=== PATIENT | female | born 1940 | race Caucasian/White ===

== ENCOUNTER 2019-03-11 21:45 | Inpatient (IN) | payer MEDICARE, OTHER ==
[~2019-03-11] VITALS: Ht 167.6 cm; Wt 50.8 kg
--- NOTE | 2019-03-11 21:58 | ED.ADGEN ---
Past History Past Medical History: Arthritis, Dementia, Depression, Hypertension Adult General Chief Complaint Chief Complaint ".. Oh.. I don't know.... I so sleepy..." HPI HPI Patient is a 78 year old female who presents with above hx and complaints of confusion. Pt. resident of [place]- with mental status change. Pt. reportedly had a double dose of Cymbalta 30, trazodone 50, Ativan 0.5, Me lantonin 3, and 100 mg Benadryl. After these dosages pt more sedate and confused. Pt. follows with Dr. Jeong. Pt. has medical history of osteoporosis, gait disorder, fibromyalgia, gastroesophageal reflux, major depression, deconditioning, hypothyroidism, dementia, scoliosis, A. fib, hemorrhoids, osteoarthritis, hypertension, and dementia. Review of Systems Review of Systems Patient is a poor historian- no specific complaints other than that she's very sleepy Constitutional: Denies fever or chills [] Eyes: Denies change in visual acuity, redness, or eye pain [] HENT: Denies nasal congestion or sore throat [] Respiratory: Denies cough or shortness of breath [] Cardiovascular: No additional information not addressed in HPI [] GI: Denies abdominal pain, nausea, vomiting, bloody stools or diarrhea [] : Denies dysuria or hematuria [] Musculoskeletal: Denies back pain or joint pain [] Integument: Denies rash or skin lesions [] Neurologic: Denies headache, focal weakness or sensory changes [] Endocrine: Denies polyuria or polydipsia [] All other systems were reviewed and found to be within normal limits, except as documented in this note. Family History Family History Not currently available Current Medications Current Medications See nursing for half-way meds Allergies Allergies See nursing Physical Exam Physical Exam Constitutional:, no acute distress, extremely sedated in appearance. [] HENT: Normocephalic, atraumatic, bilateral external ears normal, oropharynx moist, no oral exudates, nose normal. []Shunt on right Eyes: PERRLA, EOMI, conjunctiva normal, no discharge. [] Neck: Normal range of motion, no tenderness, supple, no stridor. [] Cardiovascular:Heart rate regular rhythm, no murmur []PMI to the left Lungs & Thorax: Bilateral breath sounds equal at apex with scattered wheezes on Auscultation [] Abdomen: Bowel sounds normal, soft, no tenderness, no masses, no pulsatile masses. [] Old surgical scars. Skin: Warm, dry, no erythema, no rash. [] Back: No tenderness, no CVA tenderness. [] Kyphosis and scoliosis Extremities: No tenderness, no cyanosis, no clubbing, ROM intact, no edema. [] Arthritic changes. Left hip scar. Neurologic: Alert and oriented X 3, but very sleepy and slow to respond , patient moves all extremities on request, has distal sensory function, no focal deficits noted. [] Psychologic: Affect sleepy, judgement impaired, mood normal. [] Current Patient Data Vital Signs Vital Signs Date Time Temp Pulse Resp B/P (MAP) Pulse Ox O2 Delivery O2 Flow Rate FiO2 03/11/19 21:58 99.1 78 20 98 Room Air EKG EKG My interpretation EKG shows sinus rhythm at 79 bpm. No acute findings of STEMI with contralateral changes.[] Radiology/Procedures Radiology/Procedures I interpretation of chest x-ray shows kyphosis and scoliosis. Does have findings of a shunt. Does have findings of left hip replacement. Does have findings of cardiomegaly. []Does have a metal [place] [address] IMAGING REPORT Signed PATIENT: TE DREW ACCOUNT: [id number] : 1940 LOCATION: ER AGE: 78 SEX: F EXAM STATUS: REG ER ORD. PHYSICIAN: SEGUN ROMO MD REASON: MENTAL STATUS CHANGE, FALLS PROCEDURE: CT HEAD AND CERVICAL SPINE WO PQRS Compliance statement: One or more of the following individualized dose reduction techniques were utilized for this examination: 1. Automated exposure control. 2. Adjustment of the mA and/or kV according to patient size. 3. Use of iterative reconstruction technique. Indication:Mental status change, falls. TECHNIQUE: CT head without IV contrast COMPARISON:None FINDINGS: Right parietal approach interventricular catheter is seen with its tip in the frontal horn of the left lateral ventricle. No pathologic extra-axial or intra-axial fluid collection. The ventricles are slightly prominent. The basal cisterns are within normal limits. 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 No acute intracranial bleed. No focal loss of meraz-white differentiation. Orbits are within normal limits. No acute calvarial fracture. Utilized paranasal sinuses and mastoid air cells are clear. IMPRESSION: 1. No acute intracranial processes noncontrast CT. 2. Mildly prominent ventricles. Indication:Falls TECHNIQUE: CT of the cervical spine without IV contrast with multiplanar reformats. COMPARISON:None FINDINGS: Cervical spine is in normal anatomic alignment. Atlantoaxial joint interval is preserved. No compression deformity. Facet joints are in normal anatomic alignment. Mild to moderate degenerative disc disease at C5-C6. Moderate facet arthropathy at C6-C7. No acute fractures. Noncontrast appearance of the neck soft tissue is within normal limits. Biapical pleural scarring. IMPRESSION: 1. No acute fractures. Electronically signed by: Adriano Martinez DO (03/12/2019 1:35 AM) [facility] Course & Med Decision Making Course & Med Decision Making Pertinent Labs and Imaging studies reviewed. (See chart for details) Discussed presentation testing and treatment plan with Dr. Benson. Patient admitted to Dr. Jeong. Suspect patient's presentation is primarily due to accidental drug overdose. Patient does have elevated d-dimer. Will obtain ultrasound and CT. [] Final Impression Final Impression 1. Confusion 2. Medicine Overdosage 3. Hx. Dementia[] 4. Diabetes glucose 110 5. Elevated d-dimer 1.10 6. Hydrocephalus Dragon Disclaimer Dragon Disclaimer This electronic medical record was generated, in whole or in part, using a voice recognition dictation system. Discharge Summary Visit Information Final Diagnosis Problems Medical Problems: (1) Mental status alteration Status: Acute Brief Hospital Course Vital Signs Vital Signs Date Time Temp Pulse Resp B/P (MAP) Pulse Ox O2 Delivery O2 Flow Rate FiO2 03/11/19 21:58 99.1 78 20 98 Room Air Brief Hospital Course Ms. Derw is a 78 old female who presented with accident OD of meds , mental status change. Admitted Dr. JEONG. Discharge Information Condition at Discharge: Improved Dragon Disclaimer This chart was dictated in whole or in part using Voice Recognition software in a busy, high-work load, and often noisy Emergency Department environment. It may contain unintended and wholly unrecognized errors or omissions. SEGUN ROMO MD March 11, 2019 21:58
[2019-03-11] MEDS ORDERED: IV RINGERS SOLUTION,LACTATED 1,000 ML IV SCH (23:00)
[2019-03-11 23:19] LABS: BASO % 0 % (0-3); EOS # 0.1 x10^3/uL (0.0-0.7); EOS % 1 % (0-3); HEMATOCRIT 38.1 % (36.0-47.0); LYMPH # 2.6 x10^3/uL (1.0-4.8); LYMPH % 24 % (24-48); MEAN CORPUSCULAR HEMOGLOBIN 27 pg (25-35); MEAN CORPUSCULAR HGB CONC 31 g/dL (31-37); MEAN CORPUSCULAR VOLUME 86 fL (79-100); MONO # 0.9 x10^3/uL (0.0-1.1); MONO % 9 % (0-9); NEUT # 7.1 x10^3uL (1.8-7.7); NEUT % 66 % (31-73); PLATELET COUNT 304 x10^3/uL (140-400); RED BLOOD COUNT 4.46 x10^6/uL (3.50-5.40); RED CELL DISTRIBUTION WIDTH 26.5 % (11.5-14.5); WHITE BLOOD COUNT 10.8 x10^3/uL (4.0-11.0)
[2019-03-12 00:40] LABS: ANISOCYTOSIS MOD; PLT ESTIMATE INCREASED (ADEQUATE)
[2019-03-12 00:41] LABS: OVALOCYTES OCC; SCHISTOCYTES OCC
[2019-03-12] MEDS ORDERED: ONDANSETRON PF 4 MG/2 ML VIAL. IV PRN (00:45)
[2019-03-12 01:11] LABS: BLOOD UREA NITROGEN 18 mg/dL (7-20); CALCIUM 10.6 mg/dL (8.5-10.1); CREATININE 0.7 mg/dL (0.6-1.0); GFR 80.9; GLUCOSE 110 mg/dL (70-99); TOTAL BILIRUBIN 0.2 mg/dL (0.2-1.0); TOTAL PROTEIN 7.4 g/dL (6.4-8.2)
[2019-03-12 01:12] LABS: ALK PHOS 100 U/L (46-116); ALT (SGPT) 14 U/L (14-59); ANION GAP 12 (6-14); AST (SGOT) 20 U/L (15-37); CARBON DIOXIDE 25 mmol/L (21-32); CHLORIDE 101 mmol/L (98-107); POTASSIUM 4.4 mmol/L (3.5-5.1); SODIUM 138 mmol/L (136-145)
[2019-03-12 01:13] LABS: LIPASE 111 U/L (73-393); MAGNESIUM 2.3 mg/dL (1.8-2.4)
--- NOTE | 2019-03-12 01:38 | RAD ---
PQRS Compliance statement: One or more of the following individualized dose reduction techniques were utilized for this examination: 1. Automated exposure control. 2. Adjustment of the mA and/or kV according to patient size. 3. Use of iterative reconstruction technique. Indication:Mental status change, falls. TECHNIQUE: CT head without IV contrast COMPARISON:None FINDINGS: Right parietal approach interventricular catheter is seen with its tip in the frontal horn of the left lateral ventricle. No pathologic extra-axial or intra-axial fluid collection. The ventricles are slightly prominent. The basal cisterns are within normal limits. 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 No acute intracranial bleed. No focal loss of meraz-white differentiation. Orbits are within normal limits. No acute calvarial fracture. Utilized paranasal sinuses and mastoid air cells are clear. IMPRESSION: 1. No acute intracranial processes noncontrast CT. 2. Mildly prominent ventricles. Indication:Falls TECHNIQUE: CT of the cervical spine without IV contrast with multiplanar reformats. COMPARISON:None FINDINGS: Cervical spine is in normal anatomic alignment. Atlantoaxial joint interval is preserved. No compression deformity. Facet joints are in normal anatomic alignment. Mild to moderate degenerative disc disease at C5-C6. Moderate facet arthropathy at C6-C7. No acute fractures. Noncontrast appearance of the neck soft tissue is within normal limits. Biapical pleural scarring. IMPRESSION: 1. No acute fractures. Electronically signed by: Adriano Martinez DO (03/12/2019 1:35 AM) [facility]
[2019-03-12 03:00] VITALS: BP 112/54
--- NOTE | 2019-03-12 05:09 | RAD ---
Indication:Shortness of breath abdominal pain. TECHNIQUE: AP chest and 2 views of the abdomen and pelvis COMPARISON: None FINDINGS: Patient is rotated to the left side limiting optimal evaluation. Heart is normal in size. Prominent bronchial markings are seen with interstitial opacities. No focal consolidation. No pneumothorax or effusion. Visualized bony thorax within normal limits. No pneumoperitoneum. The peritoneal shunt terminates in the right hemipelvis. No abnormally dilated bowel loops or air-fluid levels. IMPRESSION: 1. Findings suggests mild bronchitis. 2. No imaging evidence of high-grade bowel obstruction. Electronically signed by: Adriano Martinez DO (03/12/2019 5:06 AM) [facility]
[2019-03-12] MEDS ORDERED: CONTRAST GIVEN MC PRN (07:00)
[2019-03-12] MEDS ORDERED: IOHEXOL 350 MG/ML 100 ML VIAL. IV ONE (07:15)
[2019-03-12] MEDS ORDERED: IPRATRPIUM/ALBUTEROL 0.5/2.5MG 3 ML NEBU. NEB SCH (08:00)
[2019-03-12] MEDS ORDERED: LEVO88TA2 PO (08:15)
[2019-03-12] MEDS ORDERED: ASCO500T PO (08:15)
[2019-03-12] MEDS ORDERED: ASPI-612 PO (08:15)
[2019-03-12] MEDS ORDERED: MELA3TAB2 PO (08:15)
[2019-03-12] MEDS ORDERED: ATEN100T PO (08:15)
[2019-03-12] MEDS ORDERED: CALC200T3 PO (08:15)
[2019-03-12] MEDS ORDERED: DULO30CA2 PO (08:15)
[2019-03-12] MEDS ORDERED: TRIA1CAP3 PO (08:15)
[2019-03-12] MEDS ORDERED: FERR325T14 PO (08:15)
[2019-03-12] MEDS ORDERED: TRAZ-120 PO (08:15)
[2019-03-12] MEDS ORDERED: LORA0.5T96 PO (08:15)
[2019-03-12] MEDS ORDERED: OXYC1TAB7 PO (08:15)
--- NOTE | 2019-03-12 08:16 | EKG ---
[address] [address] Test Date: 2019-03-11 Test Time: 22:07:26 Pat Name: TE GUTIERREZ Department: Room: Gender: F Administrative Technician: KINGSLEY : 1940 Requested By: SEGUN ROMO Order Number: [id number] Reading MD: Measurements Intervals [place] Rate: 79 P: 90 [place]: 166 QRS: 3 QRSD: 84 T: 53 QT: 384 QTc: 447 Interpretive Statements SINUS RHYTHM NO SPECIFIC ECG ABNORMALITIES RI6.01 No previous ECG available for comparison
--- NOTE | 2019-03-12 08:43 | RAD ---
LEFT LEG VENOUS DOPPLER STUDY: Clinical indications: Left leg swelling and elevated d-dimer. Findings: Duplex sonography (including meraz scale evaluation and color flow and waveform spectral analysis) of the proximal aspect of the greater saphenous vein and the proximal aspect of the profunda femoral vein and the entire length of the common femoral and superficial femoral and popliteal veins and the tibioperoneal trunk and the proximal aspect of the posterior tibial and peroneal veins of the left leg was performed. Normal compressibility, augmentation of color Doppler flow after calf compression, and respiratory variation of Doppler flow is seen. Thus, there are no sonographic findings of deep venous thrombosis within these veins. Impression: There are no sonographic findings of deep venous thrombosis within the veins discussed above of the left lower extremity. RIGHT LEG VENOUS DOPPLER STUDY: Clinical indications: Right leg swelling and elevated d-dimer. Findings: Duplex sonography (including meraz scale evaluation and color flow and waveform spectral analysis) of the proximal aspect of the greater saphenous vein and proximal aspect of the profunda femoral vein and the entire length of the common femoral and superficial femoral and popliteal veins and the tibioperoneal trunk and the proximal aspect of the posterior tibial and peroneal veins of the right leg was performed. Normal compressibility, augmentation of color Doppler flow after calf compression, and respiratory variation of Doppler flow is seen. Thus, there are no sonographic findings of deep venous thrombosis within these veins. Impression: There are no sonographic findings of deep venous thrombosis within the veins discussed above of the right lower extremity. Electronically signed by: Yariel Castillo MD (03/12/2019 8:40 AM) [id number]
--- NOTE | 2019-03-12 08:52 | RAD ---
CTA of the chest with contrast, 03/12/2019: HISTORY: Elevated d-dimer Multidetector CT imaging was performed following an IV bolus injection of iodinated contrast material. Multiplanar reconstructions were produced including coronal and sagittal MIP images images. No filling defects are seen in the central pulmonary arteries to suggest pulmonary emboli. There is moderate calcific plaquing of the thoracic aorta without evidence of aneurysm. A large hiatal hernia is present producing mild mass effect upon the posterior aspect of the heart. Bilateral apical pleural-parenchymal opacities are probably due to scarring. There are additional scattered linear opacities in both lungs compatible with scarring and/or atelectasis. No pulmonary mass or dense consolidation is evident. No pleural fluid is seen. There are moderate multilevel degenerative changes in the spine. There are lower thoracic and upper lumbar vertebral compression fractures. IMPRESSION: 1. No CT evidence of central pulmonary emboli. 2. Large hiatal hernia. 3. Bilateral pleural-parenchymal scarring. 4. Vertebral compression fractures of indeterminate ages. PQRS Compliance Statement: One or more of the following individualized dose reduction techniques were utilized for this examination: 1. Automated exposure control 2. Adjustment of the mA and/or kV according to patient size 3. Use of iterative reconstruction technique Electronically signed by: Wiley Flaherty MD (03/12/2019 8:49 AM) [facility]
[2019-03-12 08:55] VITALS: BP 135/97
[2019-03-12 11:30] VITALS: BP 149/77
--- NOTE | 2019-03-12 12:17 | HP ---
ADMIT DATE: 03/11/2019 HISTORY OF PRESENT ILLNESS: The patient is a 78-year-old female patient, a resident at [facility], who apparently was sent to the Emergency Room as she was very lethargic and more confused. The patient reportedly had a double dose of her Cymbalta, trazodone, Ativan, melatonin and Benadryl. After she took all these medications, she has been more sedated and confused and was evaluated in the Emergency Room where she was extensively investigated. She has had lab work and imaging studies and was admitted for further evaluation and treatment. The patient herself is very confused and does not give any useful information. PAST MEDICAL HISTORY: Significant for osteoporosis, fibromyalgia, gastroesophageal reflux disease. She is known to have hypothyroidism, scoliosis, atrial fibrillation, generalized osteoarthritis, and hemorrhoids. 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 ALLERGIES: She is allergic to CIPROFLOXACIN, FLAGYL, GABITRIL, NUBAIN, SULFA, and ZOFRAN. MEDICATIONS: She is currently on following medications: She is on Protonix 40 mg once a day, Cymbalta 30 mg once a day, Synthroid 88 mcg once a day. She is also on calcium carbonate with vitamin D that she takes 1 tablet once a day, Cymbalta 30 mg once a day, Tums 500 mg chewable tablet as needed every 4 hours. She is on Nystatin powder applied to affected areas as needed twice a day, aspirin 81 mg once a day, atenolol 25 mg once a day. She is on triamterene/hydrochlorothiazide 37.5/25 mg once a day, ketaconazole 2% topical cream as needed for itching or rash, MiraLax 17 grams daily, ferrous sulfate 325 mg twice a day with meals, vitamin C 500 mg twice a day, melatonin 3 mg once a day, Ativan 0.5 mg that she takes half a tablet every 2 hours as needed. She is also on trazodone 50 mg once a day. She is also on dextromethorphan/guaifenesin that she takes 10 mL every 4 hours as needed and oxycodone/acetaminophen 5/325 one tablet every 6 hours as needed. FAMILY HISTORY: Noncontributory. SOCIAL HISTORY: She is , currently residing at [facility] long-term care site. She does not smoke or drink alcohol or use recreational drugs. REVIEW OF SYSTEMS: Unobtainable. PHYSICAL EXAMINATION: GENERAL: When she arrived to the Emergency Room, she looked well and was clearly in no apparent respiratory distress, slightly pale, but no jaundiced or cyanosed. No lymphadenopathy, no thyromegaly. No jugular venous distention. No lower limb edema. VITAL SIGNS: Her heart rate was 78, blood pressure was 112/54, her temperature was 99.1, respiratory rate was 20, and oxygen saturation was 98%. HEAD, EYES, EARS, NOSE, AND THROAT: Showed normocephalic, atraumatic. NECK: Supple. HEART: Showed normal first and second heart sounds with no gallop, rub or murmur. CHEST: Clear to auscultation. No crepitation or rhonchi. ABDOMEN: Scaphoid, soft, nontender. No guarding or rigidity. No organomegaly. All hernial orifices intact. Bowel sounds normal. NEUROLOGIC: She was very sleepy and slow to respond. She moves, however, all extremities on request. No obvious lateralizing sign. She was extensively investigated in the Emergency Room. LABORATORY DATA: Her lab work showed a white cell count of 10,800, hemoglobin 12, hematocrit 38, MCV 86 and platelet count of 304,000 with normal manual differential. Her chemistry showed a serum sodium 138, potassium 4.4, chloride 101, bicarbonate 25, anion gap of 12, BUN 18, creatinine 0.7, estimated GFR was 80.9 mL per minute. Her glucose was 110, calcium was 10.6, magnesium was 2.3. Total bilirubin, AST, ALT, alkaline phosphatase were normal. Her beta natriuretic peptide was 183. Total protein was 7.4, albumin 4. Lipase was 111. Her prothrombin time was 10.4, INR of 1, aPTT was 25 and D-dimer was 1.1 mg/dL. Her acute abdomen series showed findings to suggest mild bronchitis. No imaging evidence of high-grade bowel obstruction. CT scan of the head and cervical spine showed that the patient has right parietal approach intraventricular catheter seen with its tip in the frontal horn of the left lateral ventricle. No pathologic extraaxial and intraaxial fluid collection. The ventricles are slightly prominent. Basal cisterns are within normal limits. 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 No acute intracranial bleed. No focal loss of meraz-white differentiation. Orbits are within normal limits. No acute calvarial fracture. Visualized paranasal sinuses and mastoid air cells are clear. Her cervical spine is in normal anatomic alignment. Atlantoaxial joint interval is preserved. No compression deformity. Facet joints are in normal anatomic alignment, mild to moderate degenerative disk disease at C5-C6, moderate facet arthropathy at C6-C7. No acute fracture. Noncontrast appearance of the neck soft tissue is within normal limits and she has bilateral pleural scarring. Given her elevated D-dimer, she underwent venous Doppler ultrasound of her lower extremities and basically there is no sonographic finding of deep vein thrombosis within the veins discussed including both left and right lower extremities. She had had a CT angio of the chest, which showed no CT evidence of central pulmonary emboli, large hiatal hernia, and bilateral pleural parenchymal scarring, vertebral compression fracture of indeterminate age. The patient was admitted to the ICU. We held all her medications. We will obviously repeat all her lab work and decide the further management accordingly. FINAL ADMISSION DIAGNOSES: Altered mental status due to medication overdose. She has a history of hypothyroidism, elevated D-dimer and hydrocephalus for which she underwent ventriculoperitoneal shunt placement. CONTRERAS BAZZI MD DR: SANDY/jey JOB#: [id number] / [id number]
[2019-03-12 12:38] LABS: BACTERIA,URINE MANY /HPF (0-FEW); BILIRUBIN,URINE NEG (NEG); CLARITY,URINE TURBID; COLOR,URINE YELLOW; GLUCOSE,URINE NEG (NEG); NITRITE,URINE POS (NEG); SQUAMOUS EPITHELIAL CELL,UR FEW /LPF; UROBILINOGEN,URINE 0.2 mg/dL (0.2 mg/dL)
[2019-03-12 12:39] LABS: WBC,URINE >40 /HPF (0-4)
[2019-03-12] MEDS: CALCIUM CARBONATE 500 MG TAB.CHEW PO PRN ×2 (14:20→20:54)
[2019-03-12 15:30] VITALS: BP 136/70
[2019-03-12] MEDS: PANTOPRAZOLE IV 40 MG VIAL. IVP SCH (17:30)
[2019-03-12 19:55] VITALS: BP 161/77
[2019-03-12 23:30] VITALS: BP 157/79
[2019-03-13] MEDS ORDERED: METOCLOPRAMIDE HCL 10 MG/2 ML VIAL. IV PRN (06:00)
[2019-03-13] MEDS ORDERED: ACETAMINOPHEN 325 MG TABLET PO PRN (06:00)
[2019-03-13] MEDS ORDERED: LEVOTHYROXINE 88 MCG TABLET PO SCH (06:00)
[2019-03-13] MEDS ORDERED: PROMETHAZINE 12.5 MG SUPP.RECT. PR PRN (06:00)
[2019-03-13] MEDS ORDERED: LORazepam 0.5 MG TABLET PO PRN (06:15)
[2019-03-13] MEDS ORDERED: IV DEXTROSE 5 %-0.45 % NACL 1,000 ML IV SCH (06:30)
[2019-03-13 06:40] VITALS: BP 143/82
[2019-03-13 07:00] LABS: BASO # 0.1 x10^3/uL (0.0-0.2); BASO % 1 % (0-3); EOS % 0 % (0-3); HEMATOCRIT 35.7 % (36.0-47.0); HEMOGLOBIN 11.5 g/dL (12.0-15.5); LYMPH # 2.5 x10^3/uL (1.0-4.8); LYMPH % 20 % (24-48); MEAN CORPUSCULAR HEMOGLOBIN 27 pg (25-35); MEAN CORPUSCULAR HGB CONC 32 g/dL (31-37); MEAN CORPUSCULAR VOLUME 85 fL (79-100); MONO # 0.7 x10^3/uL (0.0-1.1); MONO % 5 % (0-9); NEUT # 9.5 x10^3uL (1.8-7.7); NEUT % 74 % (31-73); PLATELET COUNT 331 x10^3/uL (140-400); RED BLOOD COUNT 4.22 x10^6/uL (3.50-5.40); RED CELL DISTRIBUTION WIDTH 26.5 % (11.5-14.5); WHITE BLOOD COUNT 12.8 x10^3/uL (4.0-11.0)
[2019-03-13] MEDS ORDERED: ASCORBIC ACID 500 MG TABLET PO SCH (07:00)
[2019-03-13 07:10] LABS: GASTRIC OB PAT POSITIVE (NEG)
[2019-03-13 07:15] LABS: ALBUMIN 3.4 g/dL (3.4-5.0); ALBUMIN/GLOBULIN RATIO 0.8 (1.0-1.7); CALCIUM 9.8 mg/dL (8.5-10.1); CREATININE 0.8 mg/dL (0.6-1.0); GFR 69.4; POTASSIUM 3.3 mmol/L (3.5-5.1); TOTAL BILIRUBIN 0.5 mg/dL (0.2-1.0); TOTAL PROTEIN 7.6 g/dL (6.4-8.2)
[2019-03-13] MEDS ORDERED: ATENOLOL 25 MG TABLET PO SCH (08:00)
[2019-03-13] MEDS ORDERED: DULoxetine HCL 30 MG CAPSULE.DR PO SCH (08:00)
[2019-03-13] MEDS: PANTOPRAZOLE IV 40 MG VIAL. IVP SCH (08:04)
[2019-03-13] MEDS ORDERED: LACTOBACILLUS RHAMNOSUS GG 1 CAPSULE. PO SCH (09:00)
[2019-03-13 11:23] VITALS: BP 154/78
[2019-03-13 15:06] VITALS: BP 131/65
[2019-03-13] MEDS ORDERED: MELATONIN 3 MG TABLET PO SCH (21:00)
[2019-03-13] MEDS ORDERED: traZODone 50 MG TABLET. PO SCH (21:00)
--- NOTE | 2019-03-13 23:15 | DS ---
DATE OF DISCHARGE: 03/13/2019 HOSPITAL COURSE: The patient is a 78-year-old female patient, resident at [facility], who was admitted with altered mental status. She was very lethargic and more confused. The patient reportedly had a double dose of her Cymbalta, trazodone, Ativan, melatonin and Benadryl. After she took all these medications, she has been more sedated and confused and was evaluated in the Emergency Room where she was extensively investigated. She has had lab work and imaging studies and was admitted for further evaluation and treatment. Since admission, she has been complaining of headache and also intractable nausea and vomiting. Her vomitus was positive for blood and the patient has not eaten anything. She has not been tolerating even a clear liquid and complaining of headache. Apparently, the patient has obstructive hydrocephalus and she has had ventriculoperitoneal shunt and her CT scan of the head showed that the patient has right parietal approach, intraventricular catheter is seen with its tip in the frontal horn of the left lateral ventricle. No pathologic extraaxial or intraaxial fluid collection. 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 No acute intracranial bleed. No focal loss of meraz-white differentiation. The orbits are within normal limits. No acute calvarial fracture, visualized paranasal sinuses and mastoid air cells are clear. Given that there is some prominence of the ventricles and is wondering whether the shunt is obstructed and causing the headache and recurrent bouts of nausea and vomiting, and therefore, a decision was made to transfer her to [facility] to consult the neurosurgeon as well as the building carpenter helper. She did have blood in her vomitus, although it was not like fresh blood. PHYSICAL EXAMINATION: GENERAL: When I saw her this afternoon, she was resting slightly propped up in bed, in no apparent respiratory distress, pale, cachectic, but no jaundice, cyanosis, or thyromegaly. No jugular venous distension. No lower limb edema. VITAL SIGNS: Her heart rate was 100, blood pressure was 131/65, temperature was 99.7, respiratory rate was 20 and oxygen saturation was 97% on room air. HEAD, EYES, EARS, NOSE AND THROAT: Showed normocephalic, atraumatic. NECK: Supple. HEART: Showed normal first and second heart sounds. No gallop, rub or murmur. CHEST: Clear to auscultation. No crepitation or rhonchi. ABDOMEN: Distended, soft, nontender. NEUROLOGIC: She is very confused, but otherwise, all her cranial nerves are intact. She moves extremities without difficulty. She is mostly bedbound, chair bound; however, she does walk with a walker with assistance. LABORATORY DATA: Her lab work this morning showed her white cell count slightly up to 12,800, hemoglobin 11.5, hematocrit 35.7, MCV 85 and platelet count of 331,000. Her chemistry showed a serum sodium 141, potassium 3.3, chloride 104, bicarbonate 22, anion gap of 15, BUN 19, creatinine 0.8. Estimated GFR was 69 mL per minute. Her glucose 135, calcium was 9.8. Total bilirubin, AST, ALT, alkaline phosphatase were normal. Total protein was 7.6, albumin was 3.4. Her serum lipase was 92 and TSH was high at 10.897. Her prothrombin time was 10.4, INR of 1, aPTT was 25. D-dimer was 1.1. Urinalysis essentially showed that she was positive for nitrite and leukocyte esterase. There was more than 40 wbc's and too many bacteria. Her nasal screen for MRSA by PCR was positive. Gastric occult blood was positive. PLAN: She will be transferred to [facility]. Continue with IV fluid in the form of D5 half normal saline with probably 20 mEq of potassium chloride IV at 75 mg, continue with IV Protonix and I would consult the neurosurgeon as well as the building carpenter helper and decide the further management. We will keep her n.p.o. and repeat all her lab work tomorrow. I will continue also with IV ceftriaxone for urinary tract infection. CNOTRERAS BAZZI MD DR: SANDY/jey JOB#: [id number] / [id number]
== END 2019-03-13 19:07 | disposition short-term general hospital (02) | DRG 917 ==
LOC: ER 21:45 → ICU 22:20
PROVIDERS: ADMIT Internal Medicine; ATTEND Internal Medicine
DX: T42.4X1A Poisoning by benzodiazepines, accidental (unintentional), initial encounter (principal); G92 Toxic encephalopathy; N39.0 Urinary tract infection, site not specified; T45.0X1A Poisoning by antiallergic and antiemetic drugs, accidental (unintentional), initial encounter; F03.90 Unspecified dementia, unspecified severity, without behavioral disturbance, psychotic disturbance, mood disturbance, and anxiety; E03.9 Hypothyroidism, unspecified; I10 Essential (primary) hypertension; I48.91 Unspecified atrial fibrillation; K21.9 Gastro-esophageal reflux disease without esophagitis; F32.9 Major depressive disorder, single episode, unspecified; M15.9 Polyosteoarthritis, unspecified; M41.9 Scoliosis, unspecified; M79.7 Fibromyalgia; M81.0 Age-related osteoporosis without current pathological fracture; Z86.73 Personal history of transient ischemic attack (TIA), and cerebral infarction without residual deficits; Z79.899 Other long term (current) drug therapy; Z88.1 Allergy status to other antibiotic agents; Z88.2 Allergy status to sulfonamides; Z88.8 Allergy status to other drugs, medicaments and biological substances; Z98.2 Presence of cerebrospinal fluid drainage device; Y92.89 Other specified places as the place of occurrence of the external cause
CPT/HCPCS: 36415; 70450; 71275; 72125; 74022; 80048; 80053; 80076; 81001; 82271; 82553; 83690; 83735; 83880; 84443; 84484; 85025; 85379; 85610; 85730; 87086; 87186; 87641; 93005; 93970; 96360; 96361; C9113; J0696; J2765; J7120; Q9967; 99285-25

== ENCOUNTER 2019-07-07 23:19 | Inpatient (IN) | payer MEDICARE, OTHER ==
[~2019-07-07] VITALS: Ht 167.6 cm; Wt 49.7 kg
[~2019-07-07 23:19] MED LIST: ASCO-219 PO; ASPI-612 PO; ATEN100T PO; CALC200T3 PO; DULO30CA2 PO; FERR325T14 PO; LEVO88TA2 PO; LORA0.5T96 PO; MELA3TAB56 PO; OXYC1TAB7 PO; TRAZ-120 PO; TRIA1CAP3 PO
--- NOTE | 2019-07-07 23:36 | ED.ADGEN ---
Past History Past Medical History: Arthritis, CVA, Dementia, Depression, Hypertension Past Surgical History: Other Past Surgical History Hx. Shunt Alcohol Use: None Drug Use: None Adult General Chief Complaint Chief Complaint ".. I was going to the bath room.. I was using my walker.. and I fell... I hurt on my Lt side... shoulder.. my chest... my elbow.. my hip.. my knee.. my foot..." HPI HPI Patient is a 79 year old retired [employer] female who presents with above hx and complaints of fall while attempt to get to the bathroom with her walker. Pt. transfer from [facility] where she has been a resident since 06/18 after move from [place]. She has history of CVA-bleed. Shunt placement, Arthritis, hypertension, dementia, depression, hypertension, deconditioning, gait disorder and frequent falls. Review of Systems Review of Systems Constitutional: Denies fever or chills [] Eyes: Denies change in visual acuity, redness, or eye pain [] HENT: Denies nasal congestion or sore throat [] Respiratory: Denies cough or shortness of breath [] Cardiovascular: No additional information not addressed in HPI [] GI: Denies abdominal pain, nausea, vomiting, bloody stools or diarrhea [] : Denies dysuria or hematuria [] Musculoskeletal: Denies back pain or joint pain [] Integument: Denies rash or skin lesions [] Neurologic: Denies headache, focal weakness or sensory changes [] Endocrine: Denies polyuria or polydipsia [] All other systems were reviewed and found to be within normal limits, except as documented in this note. Family History Family History Not currently available. Current Medications Current Medications Current Medications Medications (Trade) Dose Ordered Sig/Mary Start Time Stop Time Status Last Admin Dose Admin Fentanyl Citrate (Fentanyl 2ml Vial) 25 mcg PRN Q15MIN PRN 07/07/19 23:45 07/08/19 23:44 Lactated Ringer's 1,000 ml @ 100 mls/hr Q10H 07/07/19 23:45 07/08/19 09:44 07/08/19 01:43 100 MLS/HR Morphine Sulfate (Morphine 10mg Syringe) 5 mg 1X ONCE 07/07/19 23:45 07/08/19 00:14 DC 07/08/19 01:43 5 MG Allergies Allergies Allergies Coded Allergies Type Severity Reaction Last Updated Verified I S O L A T I O N *CONTACT* Allergy Unknown 03/13/19 Yes Sulfa (Sulfonamide Antibiotics) Allergy Unknown 03/11/19 Yes ciprofloxacin Allergy Unknown 03/11/19 Yes metronidazole Allergy Unknown 03/11/19 Yes nalbuphine Allergy Unknown 03/11/19 Yes ondansetron Allergy Unknown 03/11/19 Yes tiagabine Allergy Unknown 03/11/19 Yes Physical Exam Physical Exam Constitutional: Moderate acute distress, non-toxic appearance. [] HENT: Normocephalic, contusion and ecchymosis left lateral forehead and lateral edge of orbits, bilateral external ears normal, oropharynx moist, no oral exudates, nose normal. []Shunt posterior scalp. Very hard of hearing. Eyes: PERRLA, EOMI, conjunctiva normal, no discharge. [] Neck: Decreased range of motion, supple, no stridor. [] No midline tenderness Kyphosis Cardiovascular:Heart rate regular rhythm, no murmur []PMI to the left Lungs & Thorax: Bilateral breath sounds equal apex on auscultation []Chest wall tenderness. Abdomen: Bowel sounds normal, soft, no tenderness, no masses, no pulsatile masses. [] Old scar. Skin: Warm, dry, no erythema, no rash. Poor turgor. Multiple areas of ecchymosis primarily on left side at area of pain Back: No tenderness, no CVA tenderness. [] Kyphosis and scoliosis Extremities: Complaints of bony point tenderness left side of body, no cyanosis, no clubbing, ROM intact, no edema. [] Arthritic changes. Lt shoulder ecchymosis. Neurologic: Alert and oriented X 3, guarded movement on the left side because of pain, distal sensory, no gross focal deficits from baseline per correction Psychologic: Affect anxious , judgement some impairment apparent, mood de pressed[] Current Patient Data Vital Signs Vital Signs Date Time Temp Pulse Resp B/P (MAP) Pulse Ox O2 Delivery O2 Flow Rate FiO2 07/08/19 02:43 80 16 103/72 (82) 94 Room Air 07/07/19 23:19 97.8 Lab Results Laboratory Tests Test 07/08/19 00:10 07/08/19 02:02 07/08/19 02:20 White Blood Count 9.5 x10^3/uL (4.0-11.0) Red Blood Count 4.34 x10^6/uL (3.50-5.40) Hemoglobin 13.8 g/dL (12.0-15.5) Hematocrit 41.4 % (36.0-47.0) Mean Corpuscular Volume 95 fL (79-100) Mean Corpuscular Hemoglobin 32 pg (25-35) Mean Corpuscular Hemoglobin Concent 33 g/dL (31-37) Red Cell Distribution Width 14.7 % (11.5-14.5) H Platelet Count 244 x10^3/uL (140-400) Neutrophils (%) (Auto) 68 % (31-73) Lymphocytes (%) (Auto) 22 % (24-48) L Monocytes (%) (Auto) 8 % (0-9) Eosinophils (%) (Auto) 2 % (0-3) Basophils (%) (Auto) 1 % (0-3) Neutrophils # (Auto) 6.4 x10^3uL (1.8-7.7) Lymphocytes # (Auto) 2.1 x10^3/uL (1.0-4.8) Monocytes # (Auto) 0.7 x10^3/uL (0.0-1.1) Eosinophils # (Auto) 0.2 x10^3/uL (0.0-0.7) Basophils # (Auto) 0.1 x10^3/uL (0.0-0.2) Troponin I Quantitative < 0.017 ng/mL (0-0.055) Prothrombin Time 10.4 SEC (9.4-11.4) Prothrombin Time INR 1.0 (0.9-1.1) Activated Partial Thromboplast Time 26 SEC (23-33) D-Dimer (Estefania) > 19.00 mg/L (0.00-0.50) H Sodium Level 139 mmol/L (136-145) Potassium Level 4.3 mmol/L (3.5-5.1) Chloride Level 102 mmol/L (98-107) Carbon Dioxide Level 28 mmol/L (21-32) Anion Gap 9 (6-14) Blood Urea Nitrogen 18 mg/dL (7-20) Creatinine 1.3 mg/dL (0.6-1.0) H Estimated GFR (Cockcroft-Gault) 39.5 Glucose Level 107 mg/dL (70-99) H Calcium Level 9.8 mg/dL (8.5-10.1) Magnesium Level 2.1 mg/dL (1.8-2.4) Total Bilirubin 0.3 mg/dL (0.2-1.0) Direct Bilirubin 0.1 mg/dL (0.0-0.2) Aspartate Amino Transferase (AST) 24 U/L (15-37) Alanine Aminotransferase (ALT) 14 U/L (14-59) Alkaline Phosphatase 80 U/L (46-116) Creatine Kinase 89 U/L (26-192) QN-Pla-M-Type Natriuretic Peptide 188 pg/mL (0-449) Total Protein 7.7 g/dL (6.4-8.2) Albumin 3.8 g/dL (3.4-5.0) Lipase 130 U/L (73-393) Urine Collection Type U cath Urine Color Yellow Urine Clarity Hazy Urine pH 5.5 Urine Specific [place] 1.010 Urine Protein Trace (NEG-TRACE) Urine Glucose (UA) Neg mg/dL (NEG) Urine Ketones (Stick) Neg mg/dL (NEG) Urine Blood Neg (NEG) Urine Nitrite Pos (NEG) Urine Bilirubin Neg (NEG) Urine Urobilinogen Dipstick 0.2 mg/dL (0.2 mg/dL) Urine Leukocyte Esterase Small (NEG) Urine RBC Occ /HPF (0-2) Urine WBC >40 /HPF (0-4) Urine Squamous Epithelial Cells None /LPF Urine Bacteria Few /HPF (0-FEW) Urine Opiates Screen Pos (NEG) Urine Methadone Screen Neg (NEG) Urine Barbiturates Neg (NEG) Urine Phencyclidine Screen Neg (NEG) Urine Amphetamine/Methamphetamine Neg (NEG) Urine Benzodiazepines Screen Neg (NEG) Urine Cocaine Screen Neg (NEG) Urine Cannabinoids Screen Neg (NEG) Urine Ethyl Alcohol Neg (NEG) EKG EKG I interpretation of EKG shows a sinus rhythm at 75 bpm. Left axis. Low voltage.[] Radiology/Procedures Radiology/Procedures [address] [address] IMAGING REPORT Signed PATIENT: TE GUTIERREZ ACCOUNT: [id number] : 1940 LOCATION: ER AGE: 79 SEX: F EXAM STATUS: REG ER ORD. PHYSICIAN: SEGUN ROMO MD REASON: fall PROCEDURE: HIP LEFT 1 VIEW WITH PELVIS Examination: 2 views of the left shoulder, left femur, 3 views of the left knee, 2 views of the left hip, 3 views of the left ankle, 3 views of the left elbow HISTORY: Fall COMPARISON: None available Findings The alignment of the elbow joint, ankle mortise, knee joint, shoulder joint grossly appears unremarkable. Questionable lucency identified in the posterior aspect of the left eighth rib. Left femoral prosthesis is identified. Mild joint space loss identified in the right hip joint. Moderate tricompartmental degenerative changes left knee joint. The visualized femur demonstrate no acute fracture. IMPRESSION: 1. Questionable lucency identified in the posterior aspect of the left eighth rib seen only on one view could be nondisplaced fracture otherwise no acute findings. Electronically signed by: Stalin Gonzalez MD (07/08/2019 3:50 AM) [facility] DICTATED AND SIGNED BY: STALIN GONZALEZ MD DATE: 07/08/19349 CC: SEGUN ROMO MD; CONTRERAS BAZZI MD ~ [][place] [address] IMAGING REPORT Signed PATIENT: TE GUTIERREZ ACCOUNT: [id number] : 1940 LOCATION: ER AGE: 79 SEX: F EXAM STATUS: REG ER ORD. PHYSICIAN: SEGUN ROMO MD REASON: fall hit head PROCEDURE: CT HEAD AND CERVICAL SPINE WO Examination: CT head and cervical spine without contrast HISTORY: History of fall, hit head COMPARISON: 03/12/2019. CT HEAD Exposure: One or more of the following individualized dose reduction techniques were utilized for this examination: 1. Automated exposure control 2. Adjustment of the mA and/or kV according to patient size 3. Use of iterative reconstruction technique TECHNIQUE: 5 mm contiguous axial images were obtained from the skull base to the vertex in both bone and soft tissue algorithm. FINDINGS: Right posterior parietal approach shunt catheter identified with the tip projecting in the frontal horn of the left lateral ventricle. No evidence of acute intracranial hemorrhage. No extra-axial fluid collections. No mass effect or midline shift. Ventricular size is appropriate. Basal cisterns are patent. No fractures identified.Leonard-white differentiation is preserved.Globes and orbits are within normal limits. Paranasal sinuses and mastoid air cells are clear. IMPRESSION: No acute intracranial findings. CT CERVICAL SPINE Technique: 2.5 mm contiguous axial images were obtained from the skull base through the cervicothoracic junction in both bone and soft tissue algorithm. Additional sagittal and coronal reconstructions were also performed. FINDINGS: Vertebral body height and alignment are maintained. Cervical lordosis is preserved. The lateral masses of C1 are aligned upon C2. No fractures identified. The bony canal is patent throughout. Mild intervertebral disc height loss identified at C5-C6 vertebral levels likely degenerative changes. The paraspinous soft tissues are unremarkable. Visualized intracranial contents are unremarkable. Lung apices are clear. IMPRESSION: No acute fracture of the cervical spine. Correlate clinically. Electronically signed by: Stalin Gonzlaez MD (07/08/2019 1:49 AM) [facility] DICTATED AND SIGNED BY: STALIN GONZALEZ MD DATE: 07/08/19 0149 CC: SEGUN ROMO MD; CONTRERAS BAZZI MD ~ Course & Med Decision Making Course & Med Decision Making Pertinent Labs and Imaging studies reviewed. (See chart for details Pt. admitted to Dr. LOVETT for further serial neuro checks. Pain control and neuro checks. [] Final Impression Final Impression 1. Fall 2. Multiple contusions[] 3. Head Injury 4. Elevated Creat. 1.3 5. Dehydration 6. Rib Fx. 8th 7. Deconditioned Dragon Disclaimer Dragon Disclaimer This electronic medical record was generated, in whole or in part, using a voice recognition dictation system. Dragon Disclaimer This chart was dictated in whole or in part using Voice Recognition software in a busy, high-work load, and often noisy Emergency Department environment. It may contain unintended and wholly unrecognized errors or omissions. SEGUN ROMO MD Jul 07, 2019 23:35
[2019-07-07] MEDS ORDERED: IV RINGERS SOLUTION,LACTATED 1,000 ML IV SCH (23:45)
[2019-07-07] MEDS ORDERED: MORPHINE SULFATE 10 MG/ML SYRINGE. SQ ONE (23:45)
--- NOTE | 2019-07-07 23:59 | EKG ---
[address] [address] Test Date: 2019-07-07 Test Time: 23:53:03 Pat Name: TE GUTIERREZ Department: Room: Gender: F Manager Patient: KINGSLEY : 1940 Requested By: SEGUN ROMO Order Number: [id number] Reading MD: Reji Allison MD Measurements Intervals Greig Rate: 75 P: 90 WA: 162 QRS: -4 QRSD: 92 T: 45 QT: 410 QTc: 461 Interpretive Statements SINUS RHYTHM - PROBABLE Electronically Signed On 07-22-2019 9:21:17 CDT by Reji Allison MD
[2019-07-08 00:34] LABS: BASO # 0.1 x10^3/uL (0.0-0.2); BASO % 1 % (0-3); EOS # 0.2 x10^3/uL (0.0-0.7); EOS % 2 % (0-3); HEMATOCRIT 41.4 % (36.0-47.0); HEMOGLOBIN 13.8 g/dL (12.0-15.5); LYMPH # 2.1 x10^3/uL (1.0-4.8); LYMPH % 22 % (24-48); MEAN CORPUSCULAR HEMOGLOBIN 32 pg (25-35); MEAN CORPUSCULAR HGB CONC 33 g/dL (31-37); MEAN CORPUSCULAR VOLUME 95 fL (79-100); MONO # 0.7 x10^3/uL (0.0-1.1); MONO % 8 % (0-9); NEUT # 6.4 x10^3uL (1.8-7.7); NEUT % 68 % (31-73); PLATELET COUNT 244 x10^3/uL (140-400); RED BLOOD COUNT 4.34 x10^6/uL (3.50-5.40); RED CELL DISTRIBUTION WIDTH 14.7 % (11.5-14.5); WHITE BLOOD COUNT 9.5 x10^3/uL (4.0-11.0)
--- NOTE | 2019-07-08 01:51 | RAD ---
Examination: CT head and cervical spine without contrast HISTORY: History of fall, hit head COMPARISON: 03/12/2019. CT HEAD Exposure: One or more of the following individualized dose reduction techniques were utilized for this examination: 1. Automated exposure control 2. Adjustment of the mA and/or kV according to patient size 3. Use of iterative reconstruction technique TECHNIQUE: 5 mm contiguous axial images were obtained from the skull base to the vertex in both bone and soft tissue algorithm. FINDINGS: Right posterior parietal approach shunt catheter identified with the tip projecting in the frontal horn of the left lateral ventricle. No evidence of acute intracranial hemorrhage. No extra-axial fluid collections. No mass effect or midline shift. Ventricular size is appropriate. Basal cisterns are patent. No fractures identified.Leonard-white differentiation is preserved.Globes and orbits are within normal limits. Paranasal sinuses and mastoid air cells are clear. IMPRESSION: No acute intracranial findings. CT CERVICAL SPINE Technique: 2.5 mm contiguous axial images were obtained from the skull base through the cervicothoracic junction in both bone and soft tissue algorithm. Additional sagittal and coronal reconstructions were also performed. FINDINGS: Vertebral body height and alignment are maintained. Cervical lordosis is preserved. The lateral masses of C1 are aligned upon C2. No fractures identified. The bony canal is patent throughout. Mild intervertebral disc height loss identified at C5-C6 vertebral levels likely degenerative changes. The paraspinous soft tissues are unremarkable. Visualized intracranial contents are unremarkable. Lung apices are clear. IMPRESSION: No acute fracture of the cervical spine. Correlate clinically. Electronically signed by: Stalin Gonzalez MD (07/08/2019 1:49 AM) [place] [id number]
[2019-07-08 02:40] LABS: BARBITURATES NEG (NEG); BENZODIAZEPINES NEG (NEG); CANNABINOIDS NEG (NEG); COCAINE NEG (NEG); METHADONE NEG (NEG); OPIATES POS (NEG); PHENCYCLIDINE NEG (NEG)
[2019-07-08 02:50] LABS: AMPHETAMINE/METHAMPHETAMINE NEG (NEG)
[2019-07-08 02:51] LABS: ALBUMIN 3.8 g/dL (3.4-5.0); CALCIUM 9.8 mg/dL (8.5-10.1); CREATININE 1.3 mg/dL (0.6-1.0); DIRECT BILIRUBIN 0.1 mg/dL (0.0-0.2); GFR 39.5; MAGNESIUM 2.1 mg/dL (1.8-2.4); POTASSIUM 4.3 mmol/L (3.5-5.1); TOTAL BILIRUBIN 0.3 mg/dL (0.2-1.0); TOTAL PROTEIN 7.7 g/dL (6.4-8.2)
[2019-07-08 03:10] LABS: BILIRUBIN,URINE NEG (NEG); CLARITY,URINE HAZY; COLOR,URINE YELLOW; GLUCOSE,URINE NEG (NEG)
[2019-07-08 03:11] LABS: BACTERIA,URINE FEW /HPF (0-FEW); NITRITE,URINE POS (NEG); RBC,URINE OCC /HPF (0-2); UROBILINOGEN,URINE 0.2 mg/dL (0.2 mg/dL); WBC,URINE >40 /HPF (0-4)
[2019-07-08] MEDS ORDERED: ACETAMINOPHEN 325 MG TABLET PO PRN (03:15)
[2019-07-08] MEDS ORDERED: ONDANSETRON PF 4 MG/2 ML VIAL. IV PRN (03:15)
[2019-07-08] MEDS ORDERED: cefTRIAXone SODIUM 1 GM VIAL ONE (03:19)
[2019-07-08] MEDS ORDERED: IV NORMAL SALINE 50ML 50 ML ONE (03:20)
--- NOTE | 2019-07-08 03:44 | RAD ---
EXAM: CHEST 1 VIEW History: Fall COMPARISON: None available. TECHNIQUE: Single portable radiograph of the chest FINDINGS: The cardiac silhouette is unremarkable. The lungs are clear bilaterally. The costophrenic sulci are clear and well demarcated. Shunt tubing catheter projects over the chest and right neck. IMPRESSION: No radiographic evidence of an acute cardiopulmonary process. Electronically signed by: Stalin Gonzalez MD (07/08/2019 3:41 AM) [facility]
--- NOTE | 2019-07-08 03:53 | RAD ---
Examination: 2 views of the left shoulder, left femur, 3 views of the left knee, 2 views of the left hip, 3 views of the left ankle, 3 views of the left elbow HISTORY: Fall COMPARISON: None available Findings The alignment of the elbow joint, ankle mortise, knee joint, shoulder joint grossly appears unremarkable. Questionable lucency identified in the posterior aspect of the left eighth rib. Left femoral prosthesis is identified. Mild joint space loss identified in the right hip joint. Moderate tricompartmental degenerative changes left knee joint. The visualized femur demonstrate no acute fracture. IMPRESSION: 1. Questionable lucency identified in the posterior aspect of the left eighth rib seen only on one view could be nondisplaced fracture otherwise no acute findings. Electronically signed by: Stalin Gonzalez MD (07/08/2019 3:50 AM) [facility]
[2019-07-08] MEDS ORDERED: ORPHENADRINE CITRATE 60 MG/2 ML VIAL. ONE (03:56)
[2019-07-08] MEDS ORDERED: ORPHENADRINE CITRATE 60 MG/2 ML VIAL. IV ONE (04:00)
[2019-07-08 04:29] VITALS: BP 126/73
[2019-07-08] MEDS ORDERED: POLY2500 PO (04:40)
[2019-07-08] MEDS ORDERED: PANT40TA5 PO (04:40)
[2019-07-08] MEDS ORDERED: DULO60CA6 PO (04:40)
[2019-07-08] MEDS ORDERED: SIME125C PO (04:40)
[2019-07-08] MEDS ORDERED: ONDA4TAB7 PO (04:40)
[2019-07-08] MEDS ORDERED: OXYB5TAB10 PO (04:40)
[2019-07-08] MEDS ORDERED: SUCR1TAB35 PO (04:40)
[2019-07-08] MEDS ORDERED: DOCU-109 PO (04:40)
[2019-07-08] MEDS ORDERED: ACET500T68 PO (04:40)
[2019-07-08] MEDS ORDERED: DEXT30SU PO (04:40)
[2019-07-08] MEDS: IPRATRPIUM/ALBUTEROL 0.5/2.5MG 3 ML NEBU. NEB SCH ×4 (05:33→20:00)
[2019-07-08] MEDS ORDERED: Influenza vaccine per PROTOCOL. MC PRN (06:00)
[2019-07-08] MEDS: IV RINGERS SOLUTION,LACTATED 1,000 ML IV SCH ×2 (06:31→18:32)
[2019-07-08] MEDS ORDERED: POTA20TA4 PO (07:41)
[2019-07-08] MEDS: LACTOBACILLUS RHAMNOSUS GG 1 CAPSULE. PO SCH ×2 (08:37→20:38)
[2019-07-08] MEDS ORDERED: FLU VAX QS 2019-20 (36MOS+)/PF 0.5 ML SYRINGE. VAX IM ONE (09:00)
[2019-07-08 11:15] VITALS: BP 111/69
[2019-07-08] MEDS: ENOXAPARIN ** NOTE DOSE ** SYRINGE SQ SCH (14:59)
[2019-07-08 15:23] VITALS: BP 111/69
[2019-07-08] MEDS ORDERED: ACETAMINOPHEN 500 MG TABLET PO PRN (17:15)
[2019-07-08] MEDS ORDERED: CALCIUM CARBONATE 500 MG TAB.CHEW PO PRN (17:15)
[2019-07-08] MEDS ORDERED: DEXTROMETHORPHAN POLISTIREX 30 MG PO PRN (17:15)
[2019-07-08] MEDS ORDERED: POLYETHYLENE GLYCOL 3350 17 GM PACKET. PO PRN (17:30)
[2019-07-08] MEDS ORDERED: ONDANSETRON ODT 4 MG TAB.RAPDIS PO PRN (17:30)
[2019-07-08] MEDS: ASCORBIC ACID 500 MG TABLET PO SCH (17:48)
[2019-07-08] MEDS: DULoxetine HCL 60 MG CAPSULE.DR PO SCH (17:48)
[2019-07-08] MEDS: SIMETHICONE 80 MG TAB.CHEW PO SCH (17:48)
[2019-07-08] MEDS: HYDROcodone/APAP 5/325MG 1 TAB TABLET PO PRN (17:51)
[2019-07-08 19:35] VITALS: BP 91/56
[2019-07-08] MEDS: MELATONIN 3 MG TABLET PO SCH (20:37)
[2019-07-08] MEDS: traZODone 50 MG TABLET. PO SCH (20:37)
[2019-07-08] MEDS: oxyCODONE/APAP 5/325 1 TAB TABLET PO PRN (20:37)
[2019-07-08] MEDS: SUCRALFATE 1 GM TABLET. PO SCH (20:38)
[2019-07-08] MEDS: DOCUSATE SODIUM 100 MG CAPSULE PO SCH (20:38)
[2019-07-08] MEDS: OXYBUTYNIN CHLORIDE 5 MG TABLET PO SCH (20:38)
[2019-07-08] MEDS: IV NORMAL SALINE 1,000ML 1,000 ML IV SCH ×2 (20:39→23:41)
[2019-07-08 23:55] VITALS: BP 101/66
[2019-07-09] MEDS: IPRATRPIUM/ALBUTEROL 0.5/2.5MG 3 ML NEBU. NEB SCH (05:15)
[2019-07-09] MEDS: oxyCODONE/APAP 5/325 1 TAB TABLET PO PRN ×2 (05:34→14:50)
[2019-07-09] MEDS: LEVOTHYROXINE 88 MCG TABLET PO SCH (05:34)
[2019-07-09] MEDS: ASCORBIC ACID 500 MG TABLET PO SCH ×2 (05:35→16:55)
[2019-07-09 05:47] VITALS: BP 135/72
[2019-07-09 07:07] LABS: BASO % 1 % (0-3); EOS # 0.2 x10^3/uL (0.0-0.7); EOS % 2 % (0-3); HEMATOCRIT 35.1 % (36.0-47.0); HEMOGLOBIN 11.6 g/dL (12.0-15.5); LYMPH # 1.3 x10^3/uL (1.0-4.8); LYMPH % 19 % (24-48); MEAN CORPUSCULAR HEMOGLOBIN 32 pg (25-35); MEAN CORPUSCULAR HGB CONC 33 g/dL (31-37); MEAN CORPUSCULAR VOLUME 96 fL (79-100); MONO # 0.7 x10^3/uL (0.0-1.1); MONO % 10 % (0-9); NEUT # 4.9 x10^3uL (1.8-7.7); NEUT % 69 % (31-73); PLATELET COUNT 149 x10^3/uL (140-400); RED BLOOD COUNT 3.65 x10^6/uL (3.50-5.40); RED CELL DISTRIBUTION WIDTH 14.7 % (11.5-14.5); WHITE BLOOD COUNT 7.1 x10^3/uL (4.0-11.0)
[2019-07-09 07:17] LABS: CALCIUM 8.7 mg/dL (8.5-10.1); CREATININE 0.9 mg/dL (0.6-1.0); GFR 60.4
[2019-07-09] MEDS ORDERED: POTASSIUM CHLORIDE 20 MEQ TABLET.ER. PO SCH ×2 (08:00→21:00)
[2019-07-09] MEDS: ASPIRIN ENTERIC COATED 81 MG TABLET.DR. PO SCH (08:48)
[2019-07-09] MEDS: SUCRALFATE 1 GM TABLET. PO SCH ×4 (08:48→20:45)
[2019-07-09] MEDS: SIMETHICONE 80 MG TAB.CHEW PO SCH ×2 (08:48→16:55)
[2019-07-09] MEDS: OXYBUTYNIN CHLORIDE 5 MG TABLET PO SCH ×2 (08:48→20:46)
[2019-07-09] MEDS: LACTOBACILLUS RHAMNOSUS GG 1 CAPSULE. PO SCH ×2 (08:48→20:46)
[2019-07-09] MEDS: TRIAMTERENE/HCTZ 37.5/25MG TABLET. PO SCH (08:48)
[2019-07-09] MEDS: DULoxetine HCL 30 MG CAPSULE.DR PO SCH (08:49)
[2019-07-09] MEDS: ATENOLOL 25 MG TABLET PO SCH (08:49)
[2019-07-09] MEDS: DOCUSATE SODIUM 100 MG CAPSULE PO SCH ×2 (08:51→20:47)
[2019-07-09] MEDS: FERROUS SULFATE 325 MG TABLET. PO SCH ×2 (08:51→16:55)
[2019-07-09] MEDS: PANTOPRAZOLE 40 MG TABLET. PO SCH (08:51)
[2019-07-09] MEDS: IV NORMAL SALINE 1,000ML 1,000 ML IV SCH ×2 (10:00→20:00)
[2019-07-09 10:18] VITALS: BP 114/67
--- NOTE | 2019-07-09 14:04 | RAD ---
Examination: BONE SCAN WHOLE BODY History: Severe pain. Fall. Comparison/Correlation: 03/04/2019 CTA of the chest, 07/07/2019 left hip x-ray exam, 07/08/2019 left shoulder x-ray exam Findings: 25 mCi technetium 99m MDP was intravenously administered for purposes of gallbladder posteriorly. Uptake of radiotracer involving the skull is normal. Foci of uptake involving the thoracic and upper lumbar spine corresponding with vertebral body compression fractures are present. Foci of uptake involving the left ribs are present corresponding to previous fractures. Uptake involving the left pelvic ring corresponding to old fracture is noted. Photopenia involving the proximal left femur corresponding to prosthesis noted. Increase is present involving the kidneys and urinary bladder. Intense uptake involving the left greater tuberosity is noted. Impression: Uptake involving the greater tuberosity region is present and may correlate with a lucency seen on 07/08/2019 left shoulder fracture exam in this region which may represent fracture. Other foci of uptake corresponding to old fractures are present. Electronically signed by: Umair Hamilton MD (07/09/2019 2:01 PM) [facility]
[2019-07-09] MEDS ORDERED: POTASSIUM CHLORIDE 20 MEQ TABLET.ER. PO ONE (14:30)
[2019-07-09] MEDS: ENOXAPARIN ** NOTE DOSE ** SYRINGE SQ SCH (14:55)
[2019-07-09 15:02] VITALS: BP 156/73
[2019-07-09] MEDS ORDERED: IOHEXOL 350 MG/ML 100 ML VIAL. IV ONE (15:15)
[2019-07-09] MEDS: DULoxetine HCL 60 MG CAPSULE.DR PO SCH (16:55)
--- NOTE | 2019-07-09 17:12 | RAD ---
EXAM: CT angiography of the chest with intravenous contrast. HISTORY: Elevated d-dimer. TECHNIQUE: Computed tomographic images of the chest were obtained following the administration of 90 cc Omnipaque 350 intravenous contrast according to angiography protocol. Multiplanar reformatting was performed and 3-dimensional maximum intensity projection images were obtained. *One or more of the following individualized dose reduction techniques were utilized for this examination: 1. Automated exposure control. 2. Adjustment of the mA and/or kV according to patient size. 3. Use of iterative reconstruction technique. COMPARISON: 03/12/2019. FINDINGS: There is no convincing pulmonary embolism. The heart is upper normal in size. The aorta is normal in caliber. No pathologically enlarged mediastinal or hilar lymph node is seen. The left thyroid lobe appears absent. There is a ventriculoperitoneal shunt coursing over the right ventral neck and chest to extend inferior to the [id number]. There is no pneumothorax or pleural effusion. There is biapical pleural parenchymal scarring with associated pleural thickening. There is also linear scarring or atelectasis within the superior segment of the right lower lobe and there is bilateral infrahilar atelectasis or scarring. There is a large hiatal hernia with intrathoracic positioning of the gastric cardia. There is a 2 mm nodular opacity within the anterior right upper lobe. There is a 2 mm pleural-based opacity within the posterior superior segment of the right lower lobe. There is calcified atherosclerotic plaque involving the visualized abdominal aorta and origins of the aortic branch vessels. This results in suspected hemodynamically significant stenosis within the origin and proximal superior mesenteric artery and renal arteries. This is not formally assessed on this exam. No hepatic lesion is seen. The gallbladder, pancreas, spleen, and adrenal glands are unremarkable. There is slight asymmetric enhancement of the right greater than left kidney which may be due to a component of aforementioned renal artery stenosis. There is moderate gas and stool within the visualized colon. There is a severe wedge compression fracture of L1 with complete loss of anterior vertebral body height and 5 mm retropulsion of the cortex into the central canal. This is chronic in appearance. There is a moderate chronic appearing compression fracture of L2, a severe chronic appearing compression fracture of T10, a mild to moderate chronic appearing compression fracture of T11, a minimal chronic appearing compression fracture with superior endplate Schmorl's node at T12, and mild chronic appearing compression fracture of T7. Appreciably changed compared to the prior study. The superimposed on bone demineralization. There are chronic appearing posterior lateral left rib fractures. IMPRESSION: 1. No convincing pulmonary embolism. 2. Stable linear atelectasis or scarring within the superior segment of the right lower lobe and bilateral lower lobes. There is also biapical scarring. No consolidated infiltrate is seen. 3. Large hiatal hernia. 4. Tiny pulmonary nodules, stable in appearance and likely benign based on size. 5. Multiple thoracic and upper lumbar vertebral compression fractures, not appreciably changed compared to the prior study. No convincing acute fracture is seen. There are also chronic appearing left rib fractures. 6. Slight relative decreased enhancement of the left renal parenchyma. This may be artifactual or due to significant renal artery stenosis. Correlate with renal function laboratory values. Electronically signed by: Jannie Faith MD (07/09/2019 5:09 PM) [facility]
[2019-07-09 19:38] VITALS: BP 120/87
[2019-07-09] MEDS: POTASSIUM CHLORIDE 20 MEQ TABLET.ER. PO SCH (20:45)
[2019-07-09] MEDS: traZODone 50 MG TABLET. PO SCH (20:46)
[2019-07-09] MEDS: MELATONIN 3 MG TABLET PO SCH (20:46)
[2019-07-09 22:48] VITALS: BP 120/78
--- NOTE | 2019-07-09 23:30 | PN ---
DATE: 07/09/2019 SUBJECTIVE: The patient is resting slightly propped up in bed, no apparent distress, awake, alert and continued to complain of severe pain in her left shoulder. Her bone scan showed increased uptake involving the greater tuberosity region, may correlate with lucency seen on 07/08/2019. Left shoulder fracture examined and this region which may represent fracture. She has all other foci of uptake corresponding to old fractures. PHYSICAL EXAMINATION: GENERAL: When I examined her, she looked pale, somewhat cachectic, but no jaundice, cyanosis or thyromegaly. No jugular venous distention. No limb edema. VITAL SIGNS: Her heart rate was 67, blood pressure was 114/67, temperature was 97.8, respiratory rate was 18 and oxygen saturation was 95%. HEAD, EYES, EARS, NOSE AND THROAT: Showed normocephalic, atraumatic. NECK: Supple. HEART: Showed normal first and second heart sounds with no gallop, rub or murmur. CHEST: Clear to auscultation. No crepitation or rhonchi. ABDOMEN: Distended, soft, nontender. NEUROLOGIC: She is demented, but without any obvious lateralizing sign. All her cranial nerves are intact. She moves right upper extremity without difficulty. She continued to have difficulty with moving her left upper extremity because of severe pain in her left shoulder. [facility] LABORATORY DATA: As of this morning showed a serum sodium 142, potassium 3, chloride 105, bicarbonate 28, anion gap of 9, BUN 10, creatinine 0.9, estimated GFR was 60 mL per minute. Her glucose was 133, calcium was 8.7. Her white cell count was 7100, hemoglobin 12, hematocrit 35, MCV 96, and platelet count 249,000. Her D-dimer was 19 mg per liter within normal range between 0 and 0.5. Given that her kidney function has improved, I will arrange for her to have a CT angio of the chest to rule out the possibility of pulmonary emboli that might be the reason for her fall and we will arrange for her to have either a sling or left shoulder immobilizer. Continue with pain management, physical and occupational therapy and hopefully she can be discharged back to the [facility] tomorrow. CONTRERAS BAZZI MD DR: SANDY/jey JOB#: [id number] / [id number]
[2019-07-10] MEDS: oxyCODONE/APAP 5/325 1 TAB TABLET PO PRN ×2 (01:57→12:17)
[2019-07-10 02:07] LABS: THYROXINE 5.7 ug/dL (4.5-12.0)
[2019-07-10] MEDS: LEVOTHYROXINE 88 MCG TABLET PO SCH (05:10)
[2019-07-10] MEDS: ASCORBIC ACID 500 MG TABLET PO SCH (05:11)
[2019-07-10] MEDS: HYDROcodone/APAP 5/325MG 1 TAB TABLET PO PRN ×2 (05:20→09:06)
[2019-07-10 05:27] VITALS: BP 115/77
[2019-07-10] MEDS: IV NORMAL SALINE 1,000ML 1,000 ML IV SCH ×2 (06:00→16:00)
[2019-07-10 06:42] LABS: CALCIUM 8.4 mg/dL (8.5-10.1); CREATININE 0.8 mg/dL (0.6-1.0); GFR 69.2; POTASSIUM 3.4 mmol/L (3.5-5.1)
[2019-07-10] MEDS: POTASSIUM CHLORIDE 20 MEQ TABLET.ER. PO SCH ×2 (09:00→15:42)
[2019-07-10] MEDS: TRIAMTERENE/HCTZ 37.5/25MG TABLET. PO SCH (09:03)
[2019-07-10] MEDS: FERROUS SULFATE 325 MG TABLET. PO SCH ×2 (09:04→16:00)
[2019-07-10] MEDS: LACTOBACILLUS RHAMNOSUS GG 1 CAPSULE. PO SCH (09:04)
[2019-07-10] MEDS: ATENOLOL 25 MG TABLET PO SCH (09:04)
[2019-07-10] MEDS: DOCUSATE SODIUM 100 MG CAPSULE PO SCH (09:04)
[2019-07-10] MEDS: OXYBUTYNIN CHLORIDE 5 MG TABLET PO SCH (09:04)
[2019-07-10] MEDS: PANTOPRAZOLE 40 MG TABLET. PO SCH (09:05)
[2019-07-10] MEDS: ASPIRIN ENTERIC COATED 81 MG TABLET.DR. PO SCH (09:05)
[2019-07-10] MEDS: SIMETHICONE 80 MG TAB.CHEW PO SCH (09:06)
[2019-07-10] MEDS: DULoxetine HCL 30 MG CAPSULE.DR PO SCH (09:07)
[2019-07-10] MEDS: SUCRALFATE 1 GM TABLET. PO SCH ×2 (09:07→15:41)
[2019-07-10 11:02] VITALS: BP 118/73
--- NOTE | 2019-07-10 14:16 | DISCH ---
DISCHARGE ORDERS DISCHARGE DATE: Jul 10, 2019 FINAL DIAGNOSIS fall with left shoulder fx CONDITION AT DISCHARGE: Stable Code Status: Full SNF STAY <30 DAYS: Yes POST DISCHARGE ORDERS: ACTIVITY ORDERS: Resume previous activity, Activity as tolerated DIET AFTER DISCHARGE: Regular DISCHARGE MEDICATIONS: Home Meds Reported Medications Potassium Chloride (KLOR-CON M20) 20 Meq Tab.er.prt, 1 TAB PO BIDWMEALS for SUPLLEMENT 07/08/19 Dextromethorphan Polistirex (Robitussin ER) 30 Mg/5 Ml Lynda.er.12h, 30 MG PO Q12HR PRN for COUGH, MISC 07/08/19 Sucralfate (CARAFATE) 1 Gm Tablet, 1 TAB PO QID for gerd, #120 TAB 1 Refill 07/08/19 Ondansetron Hcl (ZOFRAN) 4 Mg Tablet, 1 TAB PO Q6HRS PRN for NAUSEA/VOMITING, #20 TAB 07/08/19 Pantoprazole Sodium (PANTOPRAZOLE SODIUM) 40 Mg Tablet.dr, 1 TAB PO DAILY for gerd, #30 TAB 3 Refills 07/08/19 Polyethylene Glycol 3350 (POLYETHYLENE GLYCOL 3350) 2,500 Gm Powder, 17 GM PO DAILY PRN for CONSTIPATION, #527 GM 11 Refills 07/08/19 Simethicone (GAS-X) 125 Mg Capsule, 80 MG PO BIDAFTMEAL for gas, CAP 07/08/19 Oxybutynin Chloride (OXYBUTYNIN CHLORIDE) 5 Mg Tablet, 1 TAB PO BID for overactive bladder, #60 TAB 11 Refills 07/08/19 Duloxetine Hcl (CYMBALTA) 60 Mg Capsule.dr, 1 CAP PO QEVNG for depression, #90 CAP 3 Refills 07/08/19 Acetaminophen (ACETAMINOPHEN) 500 Mg Tablet, 500 MG PO Q4HRS PRN for PAIN, TAB 07/08/19 Docusate Sodium (COLACE) 100 Mg Capsule, 1 CAP PO BID for constipation, #30 CAP 07/08/19 Oxycodone Hcl/Acetaminophen (OXYCODONE-ACETAMINOPHEN 5-325) 1 Each Tablet, 1 EACH PO PRN Q6HRS PRN for PAIN, TAB 03/12/19 Trazodone Hcl (TRAZODONE HCL) 50 Mg Tablet, 1 TAB PO QHS for INSOMNIA, #30 TAB 1 Refill 03/12/19 Melatonin (MELATONIN) 3 Mg Tablet, 1 TAB PO QHS for INSOMNIA, #30 TAB 2 Refills 03/12/19 Ascorbic Acid (VITAMIN C) 500 Mg Tab.chew, 500 MG PO BID76 for SUPPLEMENT, TAB.CHEW 03/12/19 Ferrous Sulfate (FERROUS SULFATE) 325 Mg Tablet, 1 TAB PO BID94 for ANEMIA, #60 TAB 3 Refills 03/12/19 Triamterene/Hydrochlorothiazid (TRIAMTERENE-HCTZ 37.5-25 MG CP) 1 Each Capsule, 1 CAP PO DAILY08 for EDEMA, #30 CAP 5 Refills 03/12/19 Atenolol (ATENOLOL) 100 Mg Tablet, 25 MG PO DAILY08 for ANTIHYPERTENSIVE, TAB 03/12/19 Aspirin (ASPIRIN EC) 81 Mg Tablet., 1 TAB PO DAILY08 for prophylaxis, #30 TAB 3 Refills 03/12/19 Calcium Carbonate (TUMS) 200 Mg Tab.chew, 200 MG PO PRN 3-4XDAILY PRN for HEARTBURN / GAS, TAB.CHEW 03/12/19 Levothyroxine Sodium (SYNTHROID) 88 Mcg Tablet, 1 TAB PO DAILY06 for hypothyroidism, #30 TAB 5 Refills 03/12/19 Duloxetine Hcl (CYMBALTA) 30 Mg Capsule., 1 CAP PO DAILY08 for depression, #30 CAP 5 Refills 03/12/19 CONTRERAS BAZZI MD Jul 10, 2019 14:16
[2019-07-10] MEDS: ENOXAPARIN ** NOTE DOSE ** SYRINGE SQ SCH (15:44)
--- NOTE | 2019-07-11 05:34 | DS ---
DATE OF DISCHARGE: 07/10/2019 SUBJECTIVE: The patient is a 79-year-old female patient, a resident at [facility], who apparently fell landing on her left shoulder, left chest and left elbow. She complained mostly pain in her left shoulder, and she was extensively imaged on admission. There was no obvious fracture on the x-ray of her shoulder, her knee, hip and pelvis. She had had a CT scan of the head and cervical spine, which showed no evidence of an intracranial pathology, cervical spine fracture or dislocation. X-ray of the chest was unremarkable. I did actually a bone scan, which basically showed that the patient has uptake involving the greater tuberosity region present and may correlate with the lucency seen on 07/08/2019 left shoulder exam in this region, which may represent fracture. She has multiple other foci of uptake that is corresponding to old fractures present. Because of extremely high D-dimer, we did a CT angio of the chest, which basically showed no convincing pulmonary embolism. She has stable linear atelectasis or scarring within the superior segment of the bilateral lower lobes. She has also biapical scarring. No consolidating infiltrate is seen. She has large hiatal hernia, tiny pulmonary nodule, stable in appearance and likely benign based on size. She has multiple thoracic and upper lumbar vertebral compression fractures, not appreciably changed compared to the prior studies and no convincing acute fracture is seen. There is also a chronic-appearing left rib fracture, slight relative decreased enhancement of the left renal parenchyma, which may be artifactual or due to significant renal artery stenosis. I spoke with Dr. Ackerman who recommended putting her in a sling and that she should be able to use her arms to avoid any frozen shoulder and that she should have an MRI of the left shoulder in 1 week's time. PHYSICAL EXAMINATION: GENERAL: When I examined her this afternoon, she looked well and was clearly in no apparent respiratory distress. No pallor, jaundice, cyanosis or thyromegaly. No jugular venous distention. No limb edema. VITAL SIGNS: Her heart rate was 74, blood pressure was 118/73, temperature was 97.9, respiratory rate was 18 and oxygen saturation was 97%. HEAD, EYES, EARS, NOSE AND THROAT: Showed normocephalic, atraumatic. NECK: Supple. HEART: Showed normal first and second heart sounds with no gallop, rub or murmur. CHEST: Clear to auscultation. No crepitation or rhonchi. ABDOMEN: Scaphoid, soft, nontender. No guarding or rigidity. No organomegaly. All hernial orifices intact. Bowel sounds normal. NEUROLOGIC: She is awake, alert and pleasantly demented. All her cranial nerves are intact. She moves her right upper extremity, and she is able to walk with standby assist. DISCHARGE MEDICATIONS: She will be discharged back to [facility] to continue on following medications: Potassium chloride 20 mEq 3 times a day, Protonix 40 mg once a day, ferrous sulfate 325 mg twice a day, triamterene/hydrochlorothiazide 1 tablet once a day, atenolol 25 mg daily, duloxetine 30 mg daily, aspirin 81 mg once a day, levothyroxine sodium 88 mcg daily, melatonin 3 mg at bedtime, trazodone 50 mg at bedtime, sucralfate 1 g 4 times a day, oxybutynin 5 mg twice a day and Colace 100 mg twice a day. She was discharged also on simethicone 80 mg twice a day, ascorbic acid 500 mg twice a day, duloxetine 60 mg in the evening, polyethylene glycol 17 g daily p.r.n. for constipation, ondansetron 4 mg every 6 hours, oxycodone/APAP 5/325 one tablet every 6 hours and calcium carbonate with glycine for Tums 500 mg 3 times a day, Tylenol 650 mg every 4 hours and lactobacillus rhamnosus 1 capsule twice a day. FINAL DISCHARGE DIAGNOSES: Fall with left humeral questionable fracture on bone scan. The patient has multiple other medical problems that include osteoporosis, osteoarthritis, fibromyalgia, gastroesophageal reflux disease, hypothyroidism, scoliosis, atrial fibrillation and she has also had subarachnoid hemorrhage with obstructive hydrocephalus, status post ventriculoperitoneal shunt placement. She should have an MRI of her left shoulder in 1 week's time as recommended by Dr. Ackerman. CONTRERAS BAZZI MD DR: SANDY/jey JOB#: [id number] / [id number]
--- NOTE | 2019-07-11 11:29 | HP ---
ADMIT DATE: 07/08/2019 SUBJECTIVE: The patient is a 79-year-old female patient, a resident at [facility], who apparently fell while attempting to get to the bathroom with her walker. She fell on her left side and came complaining of pain in the left shoulder, left side of the chest, her left elbow, her left hip, left knee and her left foot. She was extensively investigated in the Emergency Room and she has had x-ray of her left shoulder; questionable lucency identified in the posterior aspect of the left eighth rib. She did have also a CT scan of the head and cervical spine, which showed right posterior parietal approach shunt, catheter identified with the tip projecting to the frontal horn of the left lateral ventricle. No evidence of acute intracranial hemorrhage, no extraaxial fluid collection, no mass effect or midline shift. Ventricular size appropriate. Basal cisterns are patent. No fracture identified. Leonard-white differentiation is preserved. Globes and orbits are within normal limits. Paranasal sinuses and mastoid air cells are clear. The x-ray of the chest showed no radiographic evidence of acute cardiopulmonary process, and her ankle joint showed no evidence of fracture. However, when I saw her this afternoon, she continued to complain of severe pain in her left elbow, left shoulder as well as pain in her left foot. OBJECTIVE: GENERAL: When I examined her, she looked pale, cachectic, but no jaundice or cyanosis. No lymphadenopathy, no thyromegaly. No jugular venous distension. No limb edema. VITAL SIGNS: Her heart rate was 80, blood pressure was 111/69, temperature was 97.9, respiratory rate was 18 and oxygen saturation was 96%. HEAD, EYES, EARS, NOSE AND THROAT: Showed normocephalic, atraumatic. NECK: Supple. HEART: Showed normal first and second heart sounds with no gallop or murmur. CHEST: Clear to auscultation. No crepitation or rhonchi. ABDOMEN: Scaphoid, soft, nontender. NEUROLOGIC: She is awake, alert, responding appropriately. She moves her right upper and right lower extremity without difficulty. She does have severe pain and limitation of movement of her left upper extremity, and to lesser extent in her left lower extremity. Her pain is mostly in the left foot. LABORATORY DATA: Showed a white cell count of 9500, hemoglobin 14, hematocrit 41, MCV 95 and platelet count 244,000. Her serum sodium was 139, potassium 4.3, chloride 102, bicarbonate 28, anion gap of 9, BUN 18, creatinine 1.3, estimated GFR was 39 mL per minute. Her glucose was 107, calcium was 9.8, magnesium was 2.1. Total bilirubin, AST, ALT, alkaline phosphatase were normal. Total protein was 7.7, albumin 3.9. Her beta natriuretic peptide was 188. TSH was high at ____. Her prothrombin time was 10.4, INR of 1, aPTT 26. D-dimer was extremely high at 90 mg. Her urinalysis essentially showed that she was positive for nitrite and leukocyte esterase. Her toxic screen was positive for opiates. ASSESSMENT: In summary, this is a 79-year-old female patient who came in with falls, and most complaints of pain in her left shoulder and left foot. She has elevated creatinine as well as positive urine for nitrite and large amount of leukocyte esterase and more than 40 wbc's. TSH also was high. PLAN: My plan is to treat her with IV antibiotic and IV fluid. I will check her x-ray of her left foot and arrange for a total body bone scan, and if her kidney function improves, we might have to do a CT angio of the chest. CONTRERAS BAZZI MD DR: SANDY/jey JOB#: [id number] / [id number]
== END 2019-07-10 17:00 | DRG 562 ==
LOC: ER 23:19 → 1 SOUTH 07-08 03:00
PROVIDERS: ADMIT Hospitalist; ATTEND Internal Medicine
DX: S42.302A Unspecified fracture of shaft of humerus, left arm, initial encounter for closed fracture (principal); N17.0 Acute kidney failure with tubular necrosis; S22.32XA Fracture of one rib, left side, initial encounter for closed fracture; I10 Essential (primary) hypertension; E86.0 Dehydration; S09.90XA Unspecified injury of head, initial encounter; Z86.73 Personal history of transient ischemic attack (TIA), and cerebral infarction without residual deficits; F03.90 Unspecified dementia, unspecified severity, without behavioral disturbance, psychotic disturbance, mood disturbance, and anxiety; F32.9 Major depressive disorder, single episode, unspecified; M19.90 Unspecified osteoarthritis, unspecified site; Z88.1 Allergy status to other antibiotic agents; Z88.2 Allergy status to sulfonamides; Z88.8 Allergy status to other drugs, medicaments and biological substances; M79.7 Fibromyalgia; K21.9 Gastro-esophageal reflux disease without esophagitis; E03.9 Hypothyroidism, unspecified; I48.91 Unspecified atrial fibrillation; W18.39XA Other fall on same level, initial encounter; Y93.89 Activity, other specified; Y92.89 Other specified places as the place of occurrence of the external cause; Y99.8 Other external cause status; M81.0 Age-related osteoporosis without current pathological fracture; M41.9 Scoliosis, unspecified; Z98.2 Presence of cerebrospinal fluid drainage device
CPT/HCPCS: 36415; 51702; 70450; 71045; 71275; 72125; 73030; 73080; 73501; 73552; 73562; 73610; 78306; 80048; 80076; 80307; 81001; 82550; 83690; 83735; 83880; 84436; 84439; 84443; 84480; 84484; 85025; 85379; 85610; 85730; 87086; 87641; 90471; 90686; 93005; 94640; 96361; 96365; 96372; 96375; A9503; J0696; J1650; J2270; J2360; J3010; J7120; J7620; Q9967; 97110; 97116; 97535; 99285-25; J7030

== ENCOUNTER 2019-07-13 01:09 | Emergency (ER) | payer MEDICARE, OTHER ==
[~2019-07-13] VITALS: Ht 167.6 cm; Wt 49.4 kg
[~2019-07-13 01:09] MED LIST changes: +ACET500T68 PO; +DEXT30SU PO; +DOCU-109 PO; +DULO60CA6 PO; +ONDA4TAB7 PO; +OXYB5TAB10 PO; +PANT40TA5 PO; +POLY2500 PO; +POTA20TA4 PO; +SIME125C PO; +SUCR1TAB35 PO
[2019-07-13] MEDS ORDERED: ONDANSETRON ODT 4 MG TAB.RAPDIS PO ONE (01:30)
[2019-07-13] MEDS ORDERED: MORPHINE SULFATE 4 MG/ML DISP.SYRIN. IM ONE (02:00)
[2019-07-13] MEDS ORDERED: HYDROmorphone PF 1 MG/ML DISP.SYRIN IM ONE (02:30)
[2019-07-13] MEDS ORDERED: HYDR2TAB31 PO (02:52)
--- NOTE | 2019-07-13 03:06 | RAD ---
EXAM: CHEST 1 VIEW History: Chest pain COMPARISON: 07/08/2019 TECHNIQUE: Single portable radiograph of the chest FINDINGS: Low lung volumes and technique accentuates heart and pulmonary vascularity. Mild cardiomegaly. Mild left lung base airspace opacities likely atelectasis or infiltrate. Shunt tubing projects over the chest and abdomen. IMPRESSION: Mild left lung base airspace opacities likely atelectasis or infiltrate. Electronically signed by: Stalin Gonzalez MD (07/13/2019 3:03 AM) [facility]
[2019-07-13 03:15] VITALS: BP 123/71
--- NOTE | 2019-07-13 04:24 | PHYS DOC ---
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 development shunt Alcohol Use: None Drug Use: None Adult General Chief Complaint Chief Complaint: CHEST PAIN HPI HPI Patient is a seemdm for hpi Review of Systems Review of Systems Constitutional: Denies fever or chills [] Eyes: Denies change in visual acuity, redness, or eye pain [] HENT: Denies nasal congestion or sore throat [] Respiratory: denies cough or sob Cardiovascular: No additional information not addressed in HPI [] GI: Denies abdominal pain, nausea, vomiting, bloody stools or diarrhea [] : Denies dysuria or hematuria [] Musculoskeletal: shoulder pain Integument:ecchymosis All other systems were reviewed and found to be within normal limits, except as documented in this note. Current Medications Current Medications Current Medications Medications (Trade) Dose Ordered Sig/Mary Start Time Stop Time Status Last Admin Dose Admin Hydromorphone HCl (Dilaudid) 1 mg 1X ONCE 07/13/19 02:30 07/13/19 02:31 DC 07/13/19 02:22 1 MG Morphine Sulfate (Morphine 4mg Syringe) 4 mg 1X ONCE 07/13/19 02:00 07/13/19 02:01 DC 07/13/19 01:57 4 MG Ondansetron HCl (Zofran Odt) 4 mg 1X ONCE 07/13/19 01:30 07/13/19 01:46 DC Allergies Allergies Allergies Coded Allergies Type Severity Reaction Last Updated Verified Sulfa (Sulfonamide Antibiotics) Allergy Intermediate 07/13/19 Yes ciprofloxacin Allergy Intermediate 07/13/19 Yes metronidazole Allergy Intermediate 07/13/19 Yes nalbuphine Allergy Intermediate 07/13/19 Yes ondansetron Allergy Intermediate 07/13/19 Yes tiagabine Allergy Intermediate 07/13/19 Yes I S O L A T I O N *CONTACT* Allergy Unknown 07/13/19 Yes Physical Exam Physical Exam Constitutional: Well developed, cachectic HENT: Normocephalic, atraumatic, bilateral external ears normal, oropharynx moist, no oral exudates, nose normal. [] Eyes: PERRLA, EOMI, conjunctiva normal, no discharge. [] Neck: Normal range of motion, no tenderness, supple, no stridor. [] Cardiovascular:Heart rate regular rhythm, no murmur [] Lungs & Thorax: Bilateral breath sounds clear to auscultation except decreased breath sounds left lung base. and significant anterior chest wall ttp on the left with light palpation Abdomen: Bowel sounds normal, soft, no tenderness, no masses, no pulsatile masses. [] Skin: Warm, dry, no erythema, no rash. [] Back: No tenderness, no CVA tenderness. [] Extremities: No tenderness, no cyanosis, no clubbing, ROM intact, no edema. [] Neurologic: Alert and oriented X 3, normal motor function, normal sensory function, no focal deficits noted. [] Psychologic: Affect normal, judgement normal, mood normal. [] Current Patient Data Vital Signs Vital Signs Date Time Temp Pulse Resp B/P (MAP) Pulse Ox O2 Delivery O2 Flow Rate FiO2 07/13/19 03:15 83 20 123/71 (88) 93 Room Air 07/13/19 01:10 98.4 EKG EKG [] Radiology/Procedures Radiology/Procedures [] Impressions: FINDINGS: Low lung volumes and technique accentuates heart and pulmonary vascularity. Mild cardiomegaly. Mild left lung base airspace opacities likely atelectasis or infiltrate. Shunt tubing projects over the chest and abdomen. IMPRESSION: Mild left lung base airspace opacities likely atelectasis or infiltrate. Electronically signed by: Stalin Gonzalez MD (07/13/2019 3:03 AM) [facility] [place] [facility] DICTATED AND SIGNED BY: STALIN GONZALEZ MD DATE: 07/13/19 0303 CC: MARCELINA CHOU MD; CONTRERAS BAZZI MD ~ Course & Med Decision Making Course & Med Decision Making Pertinent Labs and Imaging studies reviewed. 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 has been on percocet tonight was having severe chest wall pain anterior chest sharp stabbing nonradiating worse with any twisting movement at all or palpation. staff at facility used percocet and ativan with minimal relief. so sent to er for pain control. edcourse/mdm in er , repeat xray showed no new fracture no ptx. noted final read, i think it is atelectasis, pt is splinting the side , does not have fever or cough. we gave morphine and finally dilaudid helped her pain somewhat not resolved but improved and tolerable, pt was able to breathe more deeply when i went back to reexamine her, rx'd po dilaudid for facility. pt voiced understanding Dragon Disclaimer Dragon Disclaimer This electronic medical record was generated, in whole or in part, using a voice recognition dictation system. Departure Departure: Impression: Primary Impression: Chest wall pain Disposition: HOME, SELF-CARE Condition: STABLE Patient Instructions: Chest Wall Pain, [id number] Scripts Hydromorphone Hcl (DILAUDID) 2 Mg Tablet 1 TAB PO TID PRN for PAIN, #20 TAB Prov: MARCELINA CHOU MD 07/13/19 MARCELINA CHOU MD Jul 13, 2019 04:24
--- NOTE | 2019-07-15 07:44 | EKG ---
[address] [address] Test Date: 2019-07-13 Test Time: 01:36:28 Pat Name: TE GUTIERREZ Department: Room: Gender: F [employer] Operator: : [id number] Requested By: MARCELINA CHOU Order Number: [id number] Reading MD: Reji Allison MD Measurements Intervals [place] Rate: 74 P: 90 CT: 162 QRS: 6 QRSD: 90 T: 51 QT: 392 QTc: 436 Interpretive Statements SINUS RHYTHM Electronically Signed On 07-23-2019 10:22:58 CDT by Reji Allison MD
== END 2019-07-13 03:46 | disposition home or self-care (01) ==
LOC: ER 01:09
DX: R07.89 Other chest pain (principal); I48.91 Unspecified atrial fibrillation; M19.90 Unspecified osteoarthritis, unspecified site; F03.90 Unspecified dementia, unspecified severity, without behavioral disturbance, psychotic disturbance, mood disturbance, and anxiety; K21.9 Gastro-esophageal reflux disease without esophagitis; I10 Essential (primary) hypertension; E03.9 Hypothyroidism, unspecified; Z86.73 Personal history of transient ischemic attack (TIA), and cerebral infarction without residual deficits; Z88.2 Allergy status to sulfonamides; Z88.1 Allergy status to other antibiotic agents; Z88.8 Allergy status to other drugs, medicaments and biological substances; Z91.041 Radiographic dye allergy status
CPT/HCPCS: 71045; 93005; 96372; 99284; J1170; J2270

== ENCOUNTER 2019-11-03 18:56 | Inpatient (IN) | payer MEDICARE, OTHER ==
[~2019-11-03] VITALS: Ht 152.4 cm; Wt 49.4 kg
[~2019-11-03 18:56] MED LIST changes: +HYDR2TAB31 PO
--- NOTE | 2019-11-03 19:10 | PHYS DOC ---
Past History Past Medical History: A-Fib, Arthritis, CVA, Dementia, Depression, GERD, Hypertension, Hypothyroid, Other Additional Past Medical Histor: fx lt shoulder on 07/07/19; hiatal hernia;HX MRSA; [employer] shunt (subarachnoid bl Past Surgical History: Hip Replacement, Other Additional Past Surgical Histo: 4 shunts placed beginning of 2019 ;evp operations shunt Alcohol Use: None Drug Use: None Adult General Chief Complaint Chief Complaint: SUICIDAL IDEATION..." I really don't know why they sent me here...".. " It too cold in this room...".. " I would like my sleeping pill now..." HPI HPI Patient is a 79 year old female who presents with hx of suicidal ideation and depression. Patient reportedly made statements that she wanted to cut her wrists. Patient a resident of [place] sent for admission and further evaluation on [facility] after ED evaluation. Patient has history of anxiety disorder, depression, dementia, hypothyroidism, fibromyalgia, dysphagia, hypertension, GERD, MRSA, dysuria, deconditioning. Patient normally follows with Dr. Jeong at [facility]. Patient has had previous ventricle shunts. Pt. has no particular suicide plan and currently denies suicidal ideation. No history of travel. No specific history of immunosuppression. No specific ill contacts. Review of Systems Review of Systems Current patient has no complaints other than emergency department is too cold, and it is time for her to get some sleep. Constitutional: Denies fever or chills [] Eyes: Denies change in visual acuity, redness, or eye pain [] HENT: Denies nasal congestion or sore throat [] Respiratory: Denies cough or shortness of breath [] Cardiovascular: No additional information not addressed in HPI [] GI: Denies abdominal pain, nausea, vomiting, bloody stools or diarrhea [] : Denies dysuria or hematuria [] Musculoskeletal: Denies back pain or joint pain [] Integument: Denies rash or skin lesions [] Neurologic: Denies headache, focal weakness or sensory changes [] Endocrine: Denies polyuria or polydipsia [] All other systems were reviewed and found to be within normal limits, except as documented in this note. Family History Family History Not currently available Current Medications Current Medications See nursing for home medications Allergies Allergies Allergies Coded Allergies Type Severity Reaction Last Updated Verified Sulfa (Sulfonamide Antibiotics) Allergy Intermediate 07/13/19 Yes ciprofloxacin Allergy Intermediate 07/13/19 Yes metronidazole Allergy Intermediate 07/13/19 Yes nalbuphine Allergy Intermediate 07/13/19 Yes ondansetron Allergy Intermediate 07/13/19 Yes tiagabine Allergy Intermediate 07/13/19 Yes I S O L A T I O N *CONTACT* Allergy Unknown 07/13/19 Yes Physical Exam Physical Exam Constitutional: , no acute distress, non-toxic appearance. [] HENT: Normocephalic, atraumatic, bilateral external ears normal, oropharynx moist, no oral exudates, nose normal. Shunts Eyes: PERRLA, EOMI, conjunctiva normal, no discharge. [] Neck: Normal range of motion, no tenderness, supple, no stridor. [] Shunt Cardiovascular irregular:Heart rate and irregular regular rhythm, no murmur []PMI to the left Lungs & Thorax: Bilateral breath sounds equal at apex auscultation [] Abdomen: Bowel sounds normal, soft, no tenderness, no masses, no pulsatile masses. Old surgery scars Skin: Warm, dry, no erythema, no rash. Poor turgor Back: No tenderness, no CVA tenderness. [] Extremities: No tenderness, no cyanosis, no clubbing, ROM intact, no edema. []Arthritic changes Neurologic: Alert and oriented X name and place does have obvious memory issues,, his extremities on request to have distal sensory,, tremor Psychologic: Affect anxious, depressed mood. Current Patient Data Vital Signs Vital Signs Date Time Temp Pulse Resp B/P (MAP) Pulse Ox O2 Delivery O2 Flow Rate FiO2 11/03/19 18:58 98.3 66 16 96 Room Air EKG EKG My interpretation EKG shows a sinus rhythm at 75 bpm. Slightly irregular. Does have a tremor artifact. Has findings a right bundle-branch block. But no findings acute STEMI with contralateral changes.[] Radiology/Procedures Radiology/Procedures [][address] [address] IMAGING REPORT Signed PATIENT: TE GUTIERREZ ACCOUNT: [id number] : 1940 LOCATION: ER AGE: 79 SEX: F EXAM STATUS: REG ER ORD. PHYSICIAN: SEGUN ROMO MD REASON: copd PROCEDURE: PORTABLE CHEST 1V PORTABLE CHEST 1V Clinical indications: COPD. COMPARISON: July 05, 2019. Findings: No new lung infiltrate or pleural effusion or pulmonary edema or lung mass or pneumothorax is seen. The heart size, pulmonary vasculature, mediastinum and both glo are unremarkable. Ventricular peritoneal shunt is present. Impression: No new radiographic abnormality is seen. Electronically signed by: Slim Castillo MD (11/03/2019 8:41 PM) [facility] DICTATED AND SIGNED BY: SLIM CASTILLO MD DATE: 11/03/192040 CC: SEGUN ROMO MD; CONTRERAS JEONG MD ~ IMAGING REPORT Signed PATIENT: TE GUTIERREZ ACCOUNT: [id number] : 1940 LOCATION: ER AGE: 79 SEX: F EXAM STATUS: REG ER ORD. PHYSICIAN: SEGUN ROMO MD REASON: hx shunt x 4, cva PROCEDURE: CT HEAD AND CERVICAL SPINE WO Exam: CT head and cervical spine without contrast INDICATION: Shunt TECHNIQUE: Sequential axial images through the head and cervical spine were obtained without the administration of IV contrast. Comparisons: None FINDINGS: Head: No focal parenchymal lesion or hemorrhage is identified. There is no midline shift or sulcal effacement. No acute vascular territory infarction is identified. Leonard-white distinction is preserved. There is a right occipital approach ventriculostomy catheter with tip in the frontal horn of the left lateral ventricle similar when compared to prior study in June. There is stable appearance of the ventricular system is mildly prominent. The basal cisterns are well maintained. The visualized portions of the paranasal sinuses and mastoid air cells are well-pneumatized. No acute fractures. Cervical spine: Vertebral body heights and alignment are well-maintained. Fracture to the cervical spine is not identified. Multilevel spondylotic change in cervical spine with degenerative disc disease greatest at C5-C6. Visualized paraspinal soft tissues are unremarkable. IMPRESSION: 1. Stable positioning of ventriculostomy catheter and appearance of the ventricular system. 2. Negative CT C-spine for acute traumatic injury. Exposure: One or more of the following in the visualized dose reduction techniques were utilized for this examination: 1. Automated exposure control 2. Adjustment of the MA and/or KV according to patient size Use of iterative of reconstructive technique Electronically signed by: Reggie Mcleod MD (11/03/2019 8:54 PM) [id number] DICTATED AND SIGNED BY: REGGIE MCLEOD MD DATE: 11/03/192053 CC: SEGUN ROMO MD; CONTRERAS JEONG MD ~ Course & Med Decision Making Course & Med Decision Making Pertinent Labs and Imaging studies reviewed. (See chart for details) Pt. admitted to Dr. James with Dr. Jeong consult for medical issues. Impression: 1. Suicidal ideation 2. Depression 3. Anxiety disorder 4. Dementia 5. Mild leukocytosis 11.2 6. Mild elevation in sedimentation rate 43 7. Mild elevation in d-dimer 0.59 8. Mild hypokalemia 3.3 9. History of proximal A. fib 10. History of hypothyroidism 11. History of fibromyalgia 12. History of GERD 13. History of MRSA 14. History of dysuria 15. History Dysphagia 16. History Ventricular shunts [] Dragon Disclaimer Dragon Disclaimer This electronic medical record was generated, in whole or in part, using a voice recognition dictation system. Departure Departure: Disposition: 01 HOME/RESIDENCE PRIOR TO ADM Condition: STABLE Referrals: CONTRERAS JEONG MD (PCP) Dragon Disclaimer This chart was dictated in whole or in part using Voice Recognition software in a busy, high-work load, and often noisy Emergency Department environment. It may contain unintended and wholly unrecognized errors or omissions. Dragon Disclaimer This chart was dictated in whole or in part using Voice Recognition software in a busy, high-work load, and often noisy Emergency Department environment. It may contain unintended and wholly unrecognized errors or omissions. Dragon Disclaimer This chart was dictated in whole or in part using Voice Recognition software in a busy, high-work load, and often noisy Emergency Department environment. It may contain unintended and wholly unrecognized errors or omissions. SEGUN ROMO MD Nov 03, 2019 19:10
[2019-11-03] MEDS ORDERED: IV RINGERS SOLUTION,LACTATED 1,000 ML IV SCH (19:11)
[2019-11-03 19:38] LABS: BASO # 0.1 x10^3/uL (0.0-0.2); BASO % 1 % (0-3); EOS # 0.1 x10^3/uL (0.0-0.7); EOS % 1 % (0-3); HEMATOCRIT 37.4 % (36.0-47.0); HEMOGLOBIN 12.5 g/dL (12.0-15.5); LYMPH # 2.4 x10^3/uL (1.0-4.8); LYMPH % 21 % (24-48); MEAN CORPUSCULAR HEMOGLOBIN 32 pg (25-35); MEAN CORPUSCULAR HGB CONC 34 g/dL (31-37); MEAN CORPUSCULAR VOLUME 95 fL (79-100); MONO # 0.7 x10^3/uL (0.0-1.1); MONO % 7 % (0-9); NEUT # 7.9 x10^3uL (1.8-7.7); NEUT % 71 % (31-73); PLATELET COUNT 231 x10^3/uL (140-400); RED BLOOD COUNT 3.93 x10^6/uL (3.50-5.40); RED CELL DISTRIBUTION WIDTH 12.7 % (11.5-14.5); WHITE BLOOD COUNT 11.2 x10^3/uL (4.0-11.0)
[2019-11-03 19:47] LABS: CALCIUM 9.1 mg/dL (8.5-10.1); CREATININE 0.9 mg/dL (0.6-1.0); GFR 60.4; POTASSIUM 3.3 mmol/L (3.5-5.1)
[2019-11-03 19:59] LABS: ALBUMIN 3.6 g/dL (3.4-5.0); DIRECT BILIRUBIN 0.1 mg/dL (0.0-0.2); MAGNESIUM 1.9 mg/dL (1.8-2.4); TOTAL BILIRUBIN 0.4 mg/dL (0.2-1.0); TOTAL PROTEIN 7.3 g/dL (6.4-8.2)
[2019-11-03 20:30] LABS: BARBITURATES NEG (NEG); BENZODIAZEPINES NEG (NEG); CANNABINOIDS NEG (NEG); COCAINE NEG (NEG); METHADONE NEG (NEG); OPIATES NEG (NEG); PHENCYCLIDINE NEG (NEG)
[2019-11-03 20:31] LABS: AMPHETAMINE/METHAMPHETAMINE NEG (NEG)
[2019-11-03 20:44] LABS: BILIRUBIN,URINE NEG (NEG); CLARITY,URINE CLEAR; COLOR,URINE YELLOW; GLUCOSE,URINE NEG (NEG)
--- NOTE | 2019-11-03 20:44 | RAD ---
PORTABLE CHEST 1V Clinical indications: COPD. COMPARISON: July 05, 2019. Findings: No new lung infiltrate or pleural effusion or pulmonary edema or lung mass or pneumothorax is seen. The heart size, pulmonary vasculature, mediastinum and both glo are unremarkable. Ventricular peritoneal shunt is present. Impression: No new radiographic abnormality is seen. Electronically signed by: Yariel Castillo MD (11/03/2019 8:41 PM) [facility]
[2019-11-03 20:45] LABS: BACTERIA,URINE 0 /HPF (0-FEW); NITRITE,URINE NEG (NEG); RBC,URINE OCC /HPF (0-2); SQUAMOUS EPITHELIAL CELL,UR OCC /LPF; UROBILINOGEN,URINE 0.2 mg/dL (0.2 mg/dL); WBC,URINE OCC /HPF (0-4)
--- NOTE | 2019-11-03 20:57 | RAD ---
Exam: CT head and cervical spine without contrast INDICATION: Shunt TECHNIQUE: Sequential axial images through the head and cervical spine were obtained without the administration of IV contrast. Comparisons: None FINDINGS: Head: No focal parenchymal lesion or hemorrhage is identified. There is no midline shift or sulcal effacement. No acute vascular territory infarction is identified. Leonard-white distinction is preserved. There is a right occipital approach ventriculostomy catheter with tip in the frontal horn of the left lateral ventricle similar when compared to prior study in June. There is stable appearance of the ventricular system is mildly prominent. The basal cisterns are well maintained. The visualized portions of the paranasal sinuses and mastoid air cells are well-pneumatized. No acute fractures. Cervical spine: Vertebral body heights and alignment are well-maintained. Fracture to the cervical spine is not identified. Multilevel spondylotic change in cervical spine with degenerative disc disease greatest at C5-C6. Visualized paraspinal soft tissues are unremarkable. IMPRESSION: 1. Stable positioning of ventriculostomy catheter and appearance of the ventricular system. 2. Negative CT C-spine for acute traumatic injury. Exposure: One or more of the following in the visualized dose reduction techniques were utilized for this examination: 1. Automated exposure control 2. Adjustment of the MA and/or KV according to patient size Use of iterative of reconstructive technique Electronically signed by: Reggie Vazquez MD (11/03/2019 8:54 PM) [facility]
[2019-11-03] MEDS ORDERED: POTASSIUM CHLORIDE 20 MEQ TABLET.ER. PO ONE (21:30)
[2019-11-03] MEDS ORDERED: CALCIUM CARBONATE 500 MG TAB.CHEW PO PRN (22:30)
[2019-11-03] MEDS ORDERED: PHENAZOPYRIDINE 100 MG TABLET. PO PRN (22:30)
[2019-11-03] MEDS ORDERED: ACETAMINOPHEN 500 MG TABLET PO PRN (22:30)
[2019-11-03] MEDS ORDERED: SODI30SP NS (22:47)
[2019-11-03] MEDS ORDERED: GUAI237L83 PO (22:47)
[2019-11-03] MEDS ORDERED: SALI10002 MM ×2 (22:47)
[2019-11-03] MEDS ORDERED: PHEN-443 PO (22:47)
[2019-11-03] MEDS ORDERED: guaiFENesin DM 200MG/20MG 10 ML SYRUP PO PRN (23:00)
[2019-11-03] MEDS ORDERED: MELATONIN 3 MG TABLET PO PRN (23:00)
--- NOTE | 2019-11-03 23:08 | EKG ---
[address] [address] Test Date: 2019-11-03 Test Time: 19:24:05 Pat Name: TE GUTIERREZ Department: Room: Gender: F Binder Sorter: : 1940 Requested By: SEGUN ROMO Order Number: [id number] Reading MD: Measurements Intervals [place] Rate: 75 P: 90 VA: 146 QRS: 10 QRSD: 98 T: 28 QT: 420 QTc: 472 Interpretive Statements SINUS RHYTHM INCOMPLETE RIGHT BUNDLE BRANCH BLOCK NO SPECIFIC ECG ABNORMALITIES RI6.01 No previous ECG available for comparison
[2019-11-03] MEDS: oxyCODONE/APAP 5/325 1 TAB TABLET PO PRN (23:23)
[2019-11-03] MEDS: traZODone 50 MG TABLET. PO SCH (23:25)
[2019-11-03] MEDS ORDERED: MAGNESIUM HYDROXIDE 2,400 MG/30 ML ORAL.SUSP. PO PRN (23:45)
[2019-11-03] MEDS ORDERED: ACETAMINOPHEN 325 MG TABLET PO PRN (23:45)
[2019-11-03] MEDS ORDERED: METHYL SALICYLATE/MENTHOL TOPICAL OINTMENT 57GM TUBE. TP PRN (23:45)
[2019-11-03] MEDS ORDERED: MAG HYDROX/AL HYDROX/SIMETH 30 ML ORAL.SUSP PO PRN (23:45)
[2019-11-04 02:26] VITALS: BP 100/65
[2019-11-04] MEDS: ASCORBIC ACID 500 MG TABLET PO SCH ×2 (05:53→16:56)
[2019-11-04] MEDS: LEVOTHYROXINE 88 MCG TABLET PO SCH (05:53)
[2019-11-04] MEDS: oxyCODONE/APAP 5/325 1 TAB TABLET PO PRN ×2 (05:53→17:10)
[2019-11-04 05:58] VITALS: BP 108/64
[2019-11-04] MEDS: SALIVA STIMULANT AGENT 44ML SPRAY BOTTLE. PO SCH ×4 (07:30→19:38)
[2019-11-04 07:41] LABS: BASO % 0 % (0-3); EOS # 0.2 x10^3/uL (0.0-0.7); EOS % 2 % (0-3); HEMATOCRIT 35.3 % (36.0-47.0); HEMOGLOBIN 11.4 g/dL (12.0-15.5); LYMPH # 1.5 x10^3/uL (1.0-4.8); LYMPH % 18 % (24-48); MEAN CORPUSCULAR HEMOGLOBIN 32 pg (25-35); MEAN CORPUSCULAR HGB CONC 32 g/dL (31-37); MEAN CORPUSCULAR VOLUME 98 fL (79-100); MONO # 0.8 x10^3/uL (0.0-1.1); MONO % 9 % (0-9); NEUT # 6.1 x10^3uL (1.8-7.7); NEUT % 71 % (31-73); PLATELET COUNT 185 x10^3/uL (140-400); RED BLOOD COUNT 3.59 x10^6/uL (3.50-5.40); RED CELL DISTRIBUTION WIDTH 12.7 % (11.5-14.5); WHITE BLOOD COUNT 8.6 x10^3/uL (4.0-11.0)
[2019-11-04 08:00] LABS: CALCIUM 8.8 mg/dL (8.5-10.1); CREATININE 0.9 mg/dL (0.6-1.0); GFR 60.4; POTASSIUM 3.5 mmol/L (3.5-5.1)
[2019-11-04] MEDS ORDERED: POLYETHYLENE GLYCOL 3350 17 GM PACKET. PO PRN (09:00)
[2019-11-04] MEDS: ATENOLOL 25 MG TABLET PO SCH (09:21)
[2019-11-04] MEDS: TRIAMTERENE/HCTZ 37.5/25MG TABLET. PO SCH (09:21)
[2019-11-04] MEDS: ASPIRIN ENTERIC COATED 81 MG TABLET.DR. PO SCH (09:21)
[2019-11-04] MEDS: OXYBUTYNIN CHLORIDE 5 MG TABLET PO SCH ×2 (09:21→19:37)
[2019-11-04] MEDS: DULoxetine HCL 30 MG CAPSULE.DR PO SCH (09:22)
[2019-11-04] MEDS: DOCUSATE SODIUM 100 MG CAPSULE PO SCH ×2 (09:22→19:37)
[2019-11-04] MEDS: PANTOPRAZOLE 40 MG TABLET. PO SCH (09:22)
[2019-11-04] MEDS: SUCRALFATE 1 GM TABLET. PO SCH ×4 (09:22→19:37)
[2019-11-04] MEDS: POTASSIUM CHLORIDE 20 MEQ TABLET.ER. PO SCH ×2 (09:22→16:55)
[2019-11-04] MEDS: FERROUS SULFATE 325 MG TABLET. PO SCH ×2 (09:22→16:55)
[2019-11-04 15:54] VITALS: BP 92/52
[2019-11-04] MEDS: DULoxetine HCL 60 MG CAPSULE.DR PO SCH (16:56)
[2019-11-04] MEDS: traZODone 50 MG TABLET. PO SCH (19:37)
--- NOTE | 2019-11-04 20:19 | HP ---
ADMIT DATE: 11/04/2019 PSYCHIATRIC ADMISSION HISTORY/EVALUATION This note covers the elements not covered in my initial note of 11/04/2019. IDENTIFYING DATA: The patient is a 79-year-old female referred to us from [facility] by Dr. Jeong, after that, I evaluated the patient last evening at [facility] on account of worsening mood lability, trying to cut her wrists with used nail clippers and broken glasses. She has been extremely anxious, unmanageable at the facility, placed on one-on-one status p.r.n., imminent threat to herself, angry, aggressive, and disruptive even towards her son and the nursing staff. She has failed outpatient psychiatric interventions resulting in this referral. CHIEF COMPLAINT: "I was having a panic attack that is what happened." I had evaluated the patient at length at [facility] last evening. She was depressed, anxious, labile in her mood, hopeless, worthless, threatening to end her life, and therefore referred for inpatient psychiatric stabilization. HISTORY OF PRESENT ILLNESS: The patient has a history of worsening symptoms of depression, anxiety, paranoia, sleep and appetite changes. Short-term memory deficits. She has had worsening mood swings, some paranoia. No active homicidal ideation. She was threatening to hurt herself. PAST PSYCHIATRIC HISTORY: As above. MEDICAL HISTORY: Positive for hypertension, atrial fibrillation, dysphagia, hypothyroidism, GERD, fibromyalgia, history of brain bleed with shunt placed in 08/2019. ACCU-CHEKS: None. DIET: Regular. Takes medications crushed in pudding, ambulates with walker. UA on 11/03/2019 was negative in the ER. CODE STATUS: DNR. ALLERGIES: CIPRO, SULFA, ZOFRAN, FLAGYL, NUBAIN, GABITRIL. CURRENT PSYCHOTROPICS: Cymbalta 30 mg a.m., 60 mg p.m., trazodone 50 mg at bedtime, melatonin 3 mg at bedtime p.r.n., Percocet p.r.n. FAMILY HISTORY: Noncontributory. SOCIAL HISTORY: No history of alcohol, drug abuse, physical, sexual or elder abuse. She is not known to be a perpetrator. REACTION TO HOSPITALIZATION: The patient accepting of it. ASSETS: Supportive family, stable living at the [place] [facility]. MENTAL STATUS EXAMINATION: The patient was seen individually in her room, evening of 11/04/2019. She is oriented to herself and situation. Speech has some latency. Abstraction fair, computation impaired, language function intact, attention span short. She is somewhat paranoid. Mood is depressed, hopeless and worthless. Affect is mood congruent. Denies active suicidal ideation whatsoever as I questioned her at length. Attention span is short. IMPRESSION: Major depressive disorder, recurrent; anxiety disorder, unspecified; panic disorder, mild cognitive impairment versus major neurocognitive disorder, early vascular with depression, delusions. Rest as noted above. PLAN: Admit to Geropsychiatry Unit at [facility]. I will see the patient daily individually from a psychiatric standpoint. Medical followup with Dr. Jeong. Continue the patient on her current psychotropics. Start Seroquel 25 mg at bedtime to augment the Cymbalta and as a mood stabilizer. We will make further changes as clinically indicated. We will have routine admission lab studies including thyroid profile and B12 level for her memory deficits. FLAVIA MITCHELL MD DR: NEY/jey JOB#: [id number] / [id number]
--- NOTE | 2019-11-04 20:50 | PDOC ---
Exam Note: Tushar Note: Please also refer to the separate dictated note~for this date of service dictated separately.~Patient seen individually. Discussed the patient with Nursing staff reviewed the chart.~Reviewed interim history and current functioning. Reviewed vital signs,~Labs/ Radiology~and current medications noted below. Continue current treatment with the changes noted in the dictated addendum note Assessment: Vital Signs/I&O: Vital Signs Date Time Temp Pulse Resp B/P (MAP) Pulse Ox O2 Delivery O2 Flow Rate FiO2 11/04/19 15:54 97.2 100 20 92/52 (65) 98 11/03/19 20:30 Room Air Labs: Laboratory Tests Test 11/04/19 07:08 White Blood Count 8.6 x10^3/uL (4.0-11.0) Red Blood Count 3.59 x10^6/uL (3.50-5.40) Hemoglobin 11.4 g/dL (12.0-15.5) L Hematocrit 35.3 % (36.0-47.0) L Mean Corpuscular Volume 98 fL (79-100) Mean Corpuscular Hemoglobin 32 pg (25-35) Mean Corpuscular Hemoglobin Concent 32 g/dL (31-37) Red Cell Distribution Width 12.7 % (11.5-14.5) Platelet Count 185 x10^3/uL (140-400) Neutrophils (%) (Auto) 71 % (31-73) Lymphocytes (%) (Auto) 18 % (24-48) L Monocytes (%) (Auto) 9 % (0-9) Eosinophils (%) (Auto) 2 % (0-3) Basophils (%) (Auto) 0 % (0-3) Neutrophils # (Auto) 6.1 x10^3uL (1.8-7.7) Lymphocytes # (Auto) 1.5 x10^3/uL (1.0-4.8) Monocytes # (Auto) 0.8 x10^3/uL (0.0-1.1) Eosinophils # (Auto) 0.2 x10^3/uL (0.0-0.7) Basophils # (Auto) 0.0 x10^3/uL (0.0-0.2) Sodium Level 142 mmol/L (136-145) Potassium Level 3.5 mmol/L (3.5-5.1) Chloride Level 107 mmol/L (98-107) Carbon Dioxide Level 28 mmol/L (21-32) Anion Gap 7 (6-14) Blood Urea Nitrogen 10 mg/dL (7-20) Creatinine 0.9 mg/dL (0.6-1.0) Estimated GFR (Cockcroft-Gault) 60.4 Glucose Level 97 mg/dL (70-99) Calcium Level 8.8 mg/dL (8.5-10.1) Magnesium Level 2.0 mg/dL (1.8-2.4) Current Medications: Meds: Current Medications Medications (Trade) Dose Ordered Sig/Mary Route PRN Reason Start Time Stop Time Status Last Admin Dose Admin Potassium Chloride (Klor-Con) 40 meq 1X ONCE PO 11/03/19 21:30 11/03/19 21:34 DC 11/03/19 22:07 Aspirin (Aspirin Enteric Coated) 81 mg DAILY08 PO 11/04/19 08:00 11/04/19 09:21 Docusate Sodium (Colace) 100 mg BID PO 11/04/19 09:00 11/04/19 19:37 Ferrous Sulfate (Feosol) 325 mg BID94 PO 11/04/19 09:00 11/04/19 16:55 Levothyroxine Sodium (Synthroid) 88 mcg DAILY06 PO 11/04/19 06:00 11/04/19 05:53 Oxybutynin Chloride (Ditropan) 5 mg BID PO 11/04/19 09:00 11/04/19 19:37 Oxycodone/ Acetaminophen (Percocet 5/325) 1 tab PRN Q6HRS PRN PO SEVERE PAIN 7-10 11/03/19 22:30 11/04/19 17:10 Pantoprazole Sodium (Protonix) 40 mg DAILYAC PO 11/04/19 07:30 11/04/19 09:22 Potassium Chloride (Klor-Con) 20 meq BIDWMEALS PO 11/04/19 08:00 11/04/19 16:55 Sucralfate (Carafate) 1 gm QIDACHS PO 11/04/19 07:30 11/04/19 19:37 Ascorbic Acid (Vitamin C) 500 mg BID76 PO 11/04/19 07:00 11/04/19 16:56 Atenolol (Tenormin) 25 mg DAILY PO 11/04/19 09:00 11/04/19 09:21 Guaifenesin (Robitussin Dm) 10 ml PRN Q4HRS PRN PO COUGH 11/03/19 23:00 11/04/19 05:53 Saliva Substitute (Biotene Moisturizing Mouth) 2 spray QIDACHS PO 11/04/19 07:30 11/04/19 19:38 Triamterene/HCTZ (Maxzide 37.5/ 25mg) 1 tab DAILY PO 11/04/19 09:00 11/04/19 09:21 Duloxetine HCl (Cymbalta) 30 mg DAILY08 PO 11/04/19 08:00 11/04/19 09:22 Duloxetine HCl (Cymbalta) 60 mg QEVNG PO 11/04/19 18:00 11/04/19 16:56 Melatonin (Melatonin) 3 mg PRN QHS PRN PO INSOMNIA 11/03/19 23:00 11/03/19 23:23 Trazodone HCl (Desyrel) 50 mg QHS PO 11/03/19 23:30 11/04/19 19:37 I have reviewed the current psychotropics carefully including drug interactions. Risk benefit ratio favors no change other than as noted in my dictated progress note. Diagnosis: Problems: (1) Impulse control disorder (2) Anxiety disorder (3) Major depressive disorder, recurrent episode (4) Mild cognitive impairment (5) Major neurocognitive disorder (6) Dementia, vascular, with delusions (7) Dementia, vascular, with depression FLAVIA MITCHELL MD Nov 04, 2019 20:50
[2019-11-04] MEDS ORDERED: traZODone 50 MG TABLET. PO SCH (21:00)
[2019-11-04 21:06] LABS: THYROXINE 7.7 ug/dL (4.5-12.0)
[2019-11-04 23:06] LABS: HEMOGLOBIN A1C 4.9 % (4.8-5.6)
--- NOTE | 2019-11-04 23:11 | CONS ---
DATE OF CONSULTATION: 11/04/2019 REASON FOR CONSULTATION: Medical management. HISTORY OF PRESENT ILLNESS: The patient is a 79-year-old female patient, a resident at [facility], who apparently was [facility] on account of being tearful, refusing medication, threatening to cut wrist, used nail clippers and broken glass is to cut her wrist, attention seeking behavior, all this in a background of major depressive disorder. PAST MEDICAL HISTORY: Significant for osteoporosis, fibromyalgia, gastroesophageal reflux disease. 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 PAST SURGICAL HISTORY: Significant for ventriculoperitoneal shunt. She has also history of Tracy-Bowman tear. ALLERGIES: She is allergic to SULFA DRUGS, CIPROFLOXACIN, METRONIDAZOLE, NALBUPHINE, ONDANSETRON AND TIAGABIN. MEDICATIONS: She is currently on following medications: She is on ferrous sulfate 325 mg twice a day, atenolol 25 mg once a day, aspirin 81 mg once a day, oxycodone/APAP 5/325 one tablet every 6 hours, acetaminophen 500 mg every 4 hours, duloxetine 30 mg daily, duloxetine 60 mg daily. She is on trazodone 50 mg at bedtime, potassium chloride 20 mEq once a day. She is on triamterene/hydrochlorothiazide 37.5/25 one tablet once a day. She is on Robitussin-DM 10 mL every 4 hours. She is on saline nasal spray one spray to each nostril every 2 hours, calcium carbonate, Tums 500 mg 3 times a day, simethicone 180 mg after meals. She is on Colace 100 mg twice a day, sucralfate 1 gram 4 times a day, Protonix 40 mg once a day, levothyroxine sodium 88 mcg once a day, phenazopyridine 100 mg 2 tablets every 12 hours for 3 days, oxybutynin 5 mg twice a day, ascorbic acid 500 mg chewable tablet twice a day, melatonin 3 mg tablet at bedtime, Biotene 15 mL 4 times a day as needed, polyethylene glycol 17 grams p.o. daily as needed for constipation. FAMILY HISTORY: Noncontributory. SOCIAL HISTORY: She is , currently lives at [facility]. She has 1 son. She does not smoke, drink alcohol or use recreational drugs. She uses a walker. PHYSICAL EXAMINATION: GENERAL: When I saw her today, she looked well and was clearly in no apparent respiratory distress, slightly pale, but no jaundice, cyanosis or thyromegaly. No jugular venous distention. No lower limb edema. VITAL SIGNS: Her heart rate was 65, blood pressure was 108/64, temperature 97.2, respiratory rate was 16, and oxygen saturation was 97%. HEAD, EYES, EARS, NOSE AND THROAT: Showed normocephalic, atraumatic. NECK: Supple. HEART: Showed normal first and second heart sounds. No gallop or murmur. CHEST: Clear to auscultation. No crepitation or rhonchi. ABDOMEN: Scaphoid, soft, nontender. NEUROLOGIC: She is awake, alert, responding appropriately. All her cranial nerves are intact. EXTREMITIES: She moves extremities without difficulty. She ambulates with a walker. LABORATORY DATA: This morning showed a white cell count of 8600, hemoglobin 11, hematocrit 35, MCV 98 and platelet count of 185,000 with normal manual differential. Her sedimentation rate of 43 mm per hour. Her prothrombin time, INR and aPTT are normal. Her D-dimer was slightly elevated at 0.59. Her chemistry showed a serum sodium 142, potassium 3.5, chloride 107, bicarbonate 28, anion gap of 7, BUN 10, creatinine 0.9, estimated GFR was 60 mL per minute. Her glucose was 97, calcium was 8.8, magnesium was 2. Her total protein was 7.3, albumin 3.6. Her serum triglycerides were 92, total cholesterol 186, LDL cholesterol 124, VLDL was 18, and HDL cholesterol was 44. The ratio was 4. Urinalysis was essentially unremarkable and toxic screen was negative. She did have a chest x-ray, which showed no new radiographic abnormalities seen. CT scan of the head showed that she has stable positioning of ventriculostomy catheter in appearance of the ventricular system. Negative CT C-spine for acute traumatic injury. IMPRESSION: In summary, this is a 79-year-old female patient, who was a resident at [facility] and who was admitted on account of being tearful, refusing medication, threatening to cut her wrist, used a nail clipper and broken glasses to cut her wrist, increased attention seeking behavior, all this in a background of major depressive disorder. 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 All in all, the patient medically seem to be stable. All her vital signs, her lab work are well within acceptable range. I will obviously follow the lab work that are still pending at the time of this dictation and make any necessary recommendation. Thank you, Dr. James for allowing me to participate in the care of this patient. CONTRERAS BAZZI MD DR: SANDY/jey JOB#: [id number] / [id number]
[2019-11-05 06:07] VITALS: BP 105/64
[2019-11-05] MEDS: LEVOTHYROXINE 88 MCG TABLET PO SCH (06:07)
[2019-11-05] MEDS: ASCORBIC ACID 500 MG TABLET PO SCH ×2 (06:12→17:19)
[2019-11-05] MEDS: oxyCODONE/APAP 5/325 1 TAB TABLET PO PRN ×2 (06:15→17:25)
[2019-11-05] MEDS: SUCRALFATE 1 GM TABLET. PO SCH ×4 (08:20→20:17)
[2019-11-05] MEDS: DOCUSATE SODIUM 100 MG CAPSULE PO SCH ×2 (08:20→20:17)
[2019-11-05] MEDS: OXYBUTYNIN CHLORIDE 5 MG TABLET PO SCH ×2 (08:21→20:16)
[2019-11-05] MEDS: POTASSIUM CHLORIDE 20 MEQ TABLET.ER. PO SCH ×2 (08:21→17:19)
[2019-11-05] MEDS: PANTOPRAZOLE 40 MG TABLET. PO SCH (08:21)
[2019-11-05] MEDS: DULoxetine HCL 30 MG CAPSULE.DR PO SCH (08:21)
[2019-11-05] MEDS: ASPIRIN ENTERIC COATED 81 MG TABLET.DR. PO SCH (08:21)
[2019-11-05] MEDS: FERROUS SULFATE 325 MG TABLET. PO SCH ×2 (08:21→17:19)
[2019-11-05] MEDS: TRIAMTERENE/HCTZ 37.5/25MG TABLET. PO SCH (09:00)
[2019-11-05] MEDS: ATENOLOL 25 MG TABLET PO SCH (09:00)
[2019-11-05 12:16] VITALS: BP 103/70
[2019-11-05 16:13] VITALS: BP 107/71
[2019-11-05] MEDS: DULoxetine HCL 60 MG CAPSULE.DR PO SCH (17:19)
[2019-11-05] MEDS: QUEtiapine 25 MG TABLET. PO SCH (20:16)
[2019-11-05] MEDS: traZODone 50 MG TABLET. PO SCH (20:17)
--- NOTE | 2019-11-05 20:56 | PDOC ---
Exam Note: Tushar Note: Please also refer to the separate dictated note~for this date of service dictated separately.~Patient seen individually. Discussed the patient with Nursing staff reviewed the chart.~Reviewed interim history and current functioning. Reviewed vital signs,~Labs/ Radiology~and current medications noted below. Continue current treatment with the changes noted in the dictated addendum note Assessment: Vital Signs/I&O: Vital Signs Date Time Temp Pulse Resp B/P (MAP) Pulse Ox O2 Delivery O2 Flow Rate FiO2 11/05/19 18:25 Room Air 11/05/19 17:25 92 11/05/19 16:13 97.5 73 18 107/71 (83) I & O 11/04/19 11/04/19 11/05/19 15:00 23:00 07:00 Intake Total 840 ml 340 ml Balance 840 ml 340 ml Current Medications: Meds: Current Medications Medications (Trade) Dose Ordered Sig/Mary Route PRN Reason Start Time Stop Time Status Last Admin Dose Admin Quetiapine Fumarate (SEROquel) 37.5 mg QHS PO 11/05/19 21:00 11/05/19 20:16 I have reviewed the current psychotropics carefully including drug interactions. Risk benefit ratio favors no change other than as noted in my dictated progress note. Diagnosis: Problems: (1) Mild cognitive impairment (2) Dementia, vascular, with depression (3) Dementia, vascular, with delusions (4) Major neurocognitive disorder (5) Persistent headaches (6) Anxiety disorder (7) Major depressive disorder, recurrent episode (8) Impulse control disorder (9) Suicidal ideations FLAVIA MITCHELL MD Nov 05, 2019 20:56
[2019-11-05] MEDS ORDERED: QUEtiapine 25 MG TABLET. PO SCH (21:00)
[2019-11-06 05:05] VITALS: BP 125/75
[2019-11-06] MEDS: ASCORBIC ACID 500 MG TABLET PO SCH ×2 (06:00→18:00)
[2019-11-06] MEDS: oxyCODONE/APAP 5/325 1 TAB TABLET PO PRN ×2 (06:00→17:57)
[2019-11-06] MEDS: LEVOTHYROXINE 88 MCG TABLET PO SCH (06:01)
[2019-11-06] MEDS: ASPIRIN ENTERIC COATED 81 MG TABLET.DR. PO SCH (08:03)
[2019-11-06] MEDS: DULoxetine HCL 30 MG CAPSULE.DR PO SCH (08:03)
[2019-11-06] MEDS: DOCUSATE SODIUM 100 MG CAPSULE PO SCH ×2 (08:04→19:53)
[2019-11-06] MEDS: TRIAMTERENE/HCTZ 37.5/25MG TABLET. PO SCH (08:04)
[2019-11-06] MEDS: POTASSIUM CHLORIDE 20 MEQ TABLET.ER. PO SCH ×2 (08:04→17:00)
[2019-11-06] MEDS: ATENOLOL 25 MG TABLET PO SCH (08:04)
[2019-11-06] MEDS: OXYBUTYNIN CHLORIDE 5 MG TABLET PO SCH ×2 (08:04→19:53)
[2019-11-06] MEDS: PANTOPRAZOLE 40 MG TABLET. PO SCH (08:04)
[2019-11-06] MEDS: SUCRALFATE 1 GM TABLET. PO SCH ×4 (08:05→19:53)
[2019-11-06] MEDS: FERROUS SULFATE 325 MG TABLET. PO SCH ×2 (08:05→16:00)
--- NOTE | 2019-11-06 10:53 | TX PLAN ---
Interdisciplinary Tx Plan Admission Information Nov 03, 2019 at 21:43 Legal Status (on Admission): Voluntary DPOA/Guardian Name: Christopher Aguilar-son/POA Contact Other Contact Name: Delphine-nurse Other Contact Verified Code Status: DNR Allergies: Coded Allergies: Sulfa (Sulfonamide Antibiotics) (Verified Allergy, Intermediate, 07/13/19) ciprofloxacin (Verified Allergy, Intermediate, 07/13/19) metronidazole (Verified Allergy, Intermediate, 07/13/19) nalbuphine (Verified Allergy, Intermediate, 07/13/19) ondansetron (Verified Allergy, Intermediate, 07/13/19) tiagabine (Verified Allergy, Intermediate, 07/13/19) I S O L A T I O N *CONTACT* (Verified Allergy, Unknown, 07/13/19) +MRSA screen 03/12/19 Estimated Length of Stay: 10 Diagnoses Primary Diagnosis: MDD Reasons for Admission: Relation/conflict, Depressed, Suicidal ideation, Poor impulse control Problem in Patient's Words: Per Andria, "I want to go back to [place] and my son won't let me." Additional Admission Comments: Per intake record, Andria has been teaful, refusing her medications, and threatening to cut her wrist using clippers. Problems Active Problems: Andria has been irrtable and short termpered with staff. Andria has been argumentative. Inactive Problems: Andria has been medication compliant. Andria has been sleeping well. 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 Identified Discharge Needs: Andria would benefit from counseling support. Currently Utilized Resources Currently Utilized Resources/P: 24 hour care is provided by [facility] including medication administration, adl support, meals, and housekeeping. Dr. Jeong is PCP. Thomas has access to [facility] SW for support. Referrals Community Resources: Counseling support. F/U with Dr. James, provided he rounds at [facility]. Identified Problems/Hx/Goals Objectives/Short-Term Goals Short Term Goals: Dec. Anxiety/Panic, Dec. Symp. Depression, Medication Stabilization, Monitor Med Effects, No Suicidal/Shreya. ideation, Promote Coping Skill Short Term Goals in Patient's: Thomas wants to return to [facility] and feels that she is becoming more depressed on SBHU. Interventions/Frequency Staff Interventions/Frequency&: Nursing for routine safety checks, medication administration, adl support, and care. Psychiatry 3-5 times a week for medication management. SW visits 2 times weekly for support. Will encourage involvement in SW and recreational therapy group activities. 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 She reports she likes the elderly. Education: Andria graduated high school and attended [employer]. Community Follow-up PCP, psychaitry, counseling Community Provider/Family Inpu: Christopher, son/POA, was unable to be involved in team meeting due to work schedule. Update will be provided at later time. Treatment Plan Explained Patient/Endoscopy Technician had this treatment plan explained to him/her as indicated by the signature below and has been given the opportunity to ask questions and make suggestions: Date: Patient/Endoscopy Technician Signature: SILAS FRY Nov 06, 2019 10:53
[2019-11-06 15:54] VITALS: BP 101/58
[2019-11-06] MEDS: DULoxetine HCL 60 MG CAPSULE.DR PO SCH (18:00)
[2019-11-06] MEDS: QUEtiapine 25 MG TABLET. PO SCH (19:53)
[2019-11-06] MEDS: traZODone 50 MG TABLET. PO SCH (19:53)
--- NOTE | 2019-11-06 20:50 | PDOC ---
Exam Note: Tushar Note: Please also refer to the separate dictated note~for this date of service dictated separately.~Patient seen individually. Discussed the patient with Nursing staff reviewed the chart.~Reviewed interim history and current functioning. Reviewed vital signs,~Labs/ Radiology~and current medications noted below. Continue current treatment with the changes noted in the dictated addendum note Assessment: Vital Signs/I&O: Vital Signs Date Time Temp Pulse Resp B/P (MAP) Pulse Ox O2 Delivery O2 Flow Rate FiO2 11/06/19 19:00 Room Air 11/06/19 17:57 18 11/06/19 15:54 98.2 58 101/58 (72) 94 I & O 11/05/19 11/05/19 11/06/19 15:00 23:00 07:00 Intake Total 480 ml 460 ml Balance 480 ml 460 ml Current Medications: Meds: Current Medications Medications (Trade) Dose Ordered Sig/Mary Route PRN Reason Start Time Stop Time Status Last Admin Dose Admin Quetiapine Fumarate (SEROquel) 37.5 mg QHS PO 11/05/19 21:00 11/06/19 19:53 I have reviewed the current psychotropics carefully including drug interactions. Risk benefit ratio favors no change other than as noted in my dictated progress note. Diagnosis: Problems: (1) Mild cognitive impairment (2) Dementia, vascular, with depression (3) Dementia, vascular, with delusions (4) Major neurocognitive disorder (5) Anxiety disorder (6) Major depressive disorder, recurrent episode (7) Impulse control disorder FLAVIA MITCHELL MD Nov 06, 2019 20:50
--- NOTE | 2019-11-06 23:03 | PN ---
DATE: 11/05/2019 PSYCHIATRIC PROGRESS NOTE This late entry 11/05/2019 covers elements not covered in my initial note. SUBJECTIVE: I met with the patient evening of 11/05/2019. Per DEYA Issa, the patient slept 7-1/2 hours previous night. She has been irritable, anxious, labile, wanting to be discharged, obsessive. Denies active suicidal ideation. REVIEW OF SYSTEMS: Ambulation impaired with walker. No CV, , pulmonary, eye system symptoms on review. MENTAL STATUS EXAM: Oriented to herself and situation. Speech is coherent, rapid. Abstraction fair, computation impaired, language function intact, attention span short. Mood and affect quite labile. No active suicidal ideation. LABORATORY DATA: Reviewed. IMPRESSION: Major depressive disorder, recurrent with psychotic features; anxiety disorder, unspecified; panic disorder. PLAN: Continue current psychotropics. Increase Seroquel from 25 mg at bedtime to 37.5 mg at bedtime. Rest unchanged for now. MAN Richie MITCHELL MD DR: NEY/jey JOB#: [id number] / [id number]
[2019-11-07] MEDS: ASCORBIC ACID 500 MG TABLET PO SCH ×2 (06:10→17:06)
[2019-11-07] MEDS: oxyCODONE/APAP 5/325 1 TAB TABLET PO PRN ×3 (06:10→19:45)
[2019-11-07] MEDS: LEVOTHYROXINE 88 MCG TABLET PO SCH (06:11)
[2019-11-07 06:31] VITALS: BP 111/69
[2019-11-07 08:13] VITALS: BP 91/70
[2019-11-07] MEDS: TRIAMTERENE/HCTZ 37.5/25MG TABLET. PO SCH (08:19)
[2019-11-07] MEDS: POTASSIUM CHLORIDE 20 MEQ TABLET.ER. PO SCH ×2 (08:20→17:06)
[2019-11-07] MEDS: FERROUS SULFATE 325 MG TABLET. PO SCH ×2 (08:20→17:06)
[2019-11-07] MEDS: DOCUSATE SODIUM 100 MG CAPSULE PO SCH ×2 (08:20→19:44)
[2019-11-07] MEDS: PANTOPRAZOLE 40 MG TABLET. PO SCH (08:20)
[2019-11-07] MEDS: SUCRALFATE 1 GM TABLET. PO SCH ×4 (08:20→19:44)
[2019-11-07] MEDS: OXYBUTYNIN CHLORIDE 5 MG TABLET PO SCH ×2 (08:20→21:00)
[2019-11-07] MEDS: DULoxetine HCL 30 MG CAPSULE.DR PO SCH (08:20)
[2019-11-07] MEDS: ASPIRIN ENTERIC COATED 81 MG TABLET.DR. PO SCH (08:20)
[2019-11-07] MEDS: ATENOLOL 25 MG TABLET PO SCH (08:21)
[2019-11-07] MEDS: SIMETHICONE 80 MG TAB.CHEW PO PRN (14:08)
[2019-11-07 16:12] VITALS: BP 100/65
[2019-11-07] MEDS: SALIVA STIMULANT AGENT 44ML SPRAY BOTTLE. PO PRN (17:05)
[2019-11-07] MEDS: DULoxetine HCL 60 MG CAPSULE.DR PO SCH (17:06)
--- NOTE | 2019-11-07 19:34 | PN ---
DATE: 11/06/2019 PSYCHIATRIC PROGRESS NOTE This late entry 11/06/2019 covers elements not covered in my initial note. SUBJECTIVE: I met with the patient evening of 11/06/2019. Per nursing report, the patient slept 6-1/2 hours previous night. She has been pleasant, cooperative, was irritable previous night, resistive to treatment, but better during the day on 11/06/2019. She is wanting something to help her sleep though she slept reasonably well, 6-1/2 hours as noted. REVIEW OF SYSTEMS: No CV, , pulmonary, eye system symptoms on review. She was reading a novel and seemed to be following along. MENTAL STATUS EXAM: Oriented to herself and situation. Speech is coherent, a little rapid at times. Abstraction fair, computation impaired, language function intact, attention span short. Mood and affect remain somewhat anxious, labile. LABORATORY DATA: Reviewed. IMPRESSION: Major depressive disorder, recurrent with rule out psychotic features, panic disorder; anxiety disorder, unspecified. PLAN: No change from initial note. Seroquel has been added. We may need to adjust further. Maintain Cymbalta and trazodone along with melatonin for now. FLAVIA MITCHELL MD DR: NEY/jey JOB#: [id number] / [id number]
[2019-11-07] MEDS: traZODone 50 MG TABLET. PO SCH (19:44)
[2019-11-07] MEDS: QUEtiapine 25 MG TABLET. PO SCH (19:45)
--- NOTE | 2019-11-07 21:00 | PDOC ---
Exam Note: Tushar Note: Please also refer to the separate dictated note~for this date of service dictated separately.~Patient seen individually. Discussed the patient with Nursing staff reviewed the chart.~Reviewed interim history and current functioning. Reviewed vital signs,~Labs/ Radiology~and current medications noted below. Continue current treatment with the changes noted in the dictated addendum note Assessment: Vital Signs/I&O: Vital Signs Date Time Temp Pulse Resp B/P (MAP) Pulse Ox O2 Delivery O2 Flow Rate FiO2 11/07/19 20:54 18 94 Room Air 11/07/19 16:12 98.9 71 100/65 (77) I & O 11/06/19 11/06/19 11/07/19 15:00 23:00 07:00 Intake Total 840 ml 600 ml Balance 840 ml 600 ml Current Medications: I have reviewed the current psychotropics carefully including drug interactions. Risk benefit ratio favors no change other than as noted in my dictated progress note. Diagnosis: Problems: (1) Mild cognitive impairment (2) Dementia, vascular, with depression (3) Dementia, vascular, with delusions (4) Major neurocognitive disorder (5) Anxiety disorder (6) Major depressive disorder, recurrent episode (7) Impulse control disorder (8) Suicidal ideations FLAVIA MITCHELL MD Nov 07, 2019 21:00
[2019-11-08] MEDS: LEVOTHYROXINE 88 MCG TABLET PO SCH (05:58)
[2019-11-08] MEDS: ASCORBIC ACID 500 MG TABLET PO SCH ×2 (05:58→17:02)
[2019-11-08] MEDS: oxyCODONE/APAP 5/325 1 TAB TABLET PO PRN ×3 (06:00→19:22)
[2019-11-08 06:16] VITALS: BP 107/64
[2019-11-08] MEDS: DOCUSATE SODIUM 100 MG CAPSULE PO SCH ×2 (08:46→19:20)
[2019-11-08] MEDS: TRIAMTERENE/HCTZ 37.5/25MG TABLET. PO SCH (08:46)
[2019-11-08] MEDS: DULoxetine HCL 30 MG CAPSULE.DR PO SCH (08:46)
[2019-11-08] MEDS: OXYBUTYNIN CHLORIDE 5 MG TABLET PO SCH ×2 (08:46→19:20)
[2019-11-08] MEDS: ASPIRIN ENTERIC COATED 81 MG TABLET.DR. PO SCH (08:46)
[2019-11-08] MEDS: POTASSIUM CHLORIDE 20 MEQ TABLET.ER. PO SCH ×2 (08:47→17:02)
[2019-11-08] MEDS: ATENOLOL 25 MG TABLET PO SCH (08:47)
[2019-11-08] MEDS: FERROUS SULFATE 325 MG TABLET. PO SCH ×2 (08:47→17:02)
[2019-11-08] MEDS: SUCRALFATE 1 GM TABLET. PO SCH ×4 (08:47→19:20)
[2019-11-08] MEDS: PANTOPRAZOLE 40 MG TABLET. PO SCH (08:47)
[2019-11-08] MEDS: SIMETHICONE 80 MG TAB.CHEW PO PRN (15:21)
[2019-11-08 15:56] VITALS: BP 101/60
[2019-11-08] MEDS: DULoxetine HCL 60 MG CAPSULE.DR PO SCH (17:02)
[2019-11-08] MEDS: QUEtiapine 25 MG TABLET. PO SCH (19:20)
[2019-11-08] MEDS: traZODone 50 MG TABLET. PO SCH (19:20)
--- NOTE | 2019-11-08 21:00 | PDOC ---
Exam Note: Tushar Note: Please also refer to the separate dictated note~for this date of service dictated separately.~Patient seen individually. Discussed the patient with Nursing staff reviewed the chart.~Reviewed interim history and current functioning. Reviewed vital signs,~Labs/ Radiology~and current medications noted below. Continue current treatment with the changes noted in the dictated addendum note Assessment: Vital Signs/I&O: Vital Signs Date Time Temp Pulse Resp B/P (MAP) Pulse Ox O2 Delivery O2 Flow Rate FiO2 11/08/19 20:30 18 97 Room Air 11/08/19 15:56 97.3 62 101/60 (74) I & O 11/07/19 11/07/19 11/08/19 15:00 23:00 07:00 Intake Total 720 ml 240 ml 240 ml Balance 720 ml 240 ml 240 ml Current Medications: I have reviewed the current psychotropics carefully including drug interactions. Risk benefit ratio favors no change other than as noted in my dictated progress note. Diagnosis: Problems: (1) Mild cognitive impairment (2) Dementia, vascular, with depression (3) Dementia, vascular, with delusions (4) Major neurocognitive disorder (5) Anxiety disorder (6) Persistent headaches (7) Major depressive disorder, recurrent episode (8) Impulse control disorder (9) Suicidal ideations FLAVIA MITCHELL MD Nov 08, 2019 21:00
[2019-11-09 05:37] VITALS: BP 94/69
[2019-11-09] MEDS: ASCORBIC ACID 500 MG TABLET PO SCH ×2 (05:57→17:18)
[2019-11-09] MEDS: LEVOTHYROXINE 88 MCG TABLET PO SCH (05:58)
[2019-11-09 07:37] LABS: BASO % 0 % (0-3); EOS # 0.2 x10^3/uL (0.0-0.7); EOS % 2 % (0-3); HEMATOCRIT 36.7 % (36.0-47.0); HEMOGLOBIN 11.9 g/dL (12.0-15.5); LYMPH # 1.8 x10^3/uL (1.0-4.8); LYMPH % 23 % (24-48); MEAN CORPUSCULAR HEMOGLOBIN 32 pg (25-35); MEAN CORPUSCULAR HGB CONC 32 g/dL (31-37); MEAN CORPUSCULAR VOLUME 98 fL (79-100); MONO # 0.6 x10^3/uL (0.0-1.1); MONO % 8 % (0-9); NEUT # 5.3 x10^3uL (1.8-7.7); NEUT % 67 % (31-73); PLATELET COUNT 253 x10^3/uL (140-400); RED BLOOD COUNT 3.74 x10^6/uL (3.50-5.40); RED CELL DISTRIBUTION WIDTH 12.5 % (11.5-14.5); WHITE BLOOD COUNT 7.9 x10^3/uL (4.0-11.0)
[2019-11-09 07:50] LABS: ALBUMIN 3.3 g/dL (3.4-5.0); ALBUMIN/GLOBULIN RATIO 0.8 (1.0-1.7); CALCIUM 9.2 mg/dL (8.5-10.1); CREATININE 0.9 mg/dL (0.6-1.0); GFR 60.4; TOTAL BILIRUBIN 0.3 mg/dL (0.2-1.0); TOTAL PROTEIN 7.3 g/dL (6.4-8.2)
[2019-11-09] MEDS: DOCUSATE SODIUM 100 MG CAPSULE PO SCH ×2 (08:34→19:24)
[2019-11-09] MEDS: SUCRALFATE 1 GM TABLET. PO SCH ×4 (08:34→19:23)
[2019-11-09] MEDS: oxyCODONE/APAP 5/325 1 TAB TABLET PO PRN ×3 (08:34→21:13)
[2019-11-09] MEDS: POTASSIUM CHLORIDE 20 MEQ TABLET.ER. PO SCH ×2 (08:34→17:18)
[2019-11-09] MEDS: OXYBUTYNIN CHLORIDE 5 MG TABLET PO SCH ×2 (08:34→19:23)
[2019-11-09] MEDS: DULoxetine HCL 30 MG CAPSULE.DR PO SCH (08:34)
[2019-11-09] MEDS: PANTOPRAZOLE 40 MG TABLET. PO SCH (08:34)
[2019-11-09] MEDS: FERROUS SULFATE 325 MG TABLET. PO SCH ×2 (08:35→17:18)
[2019-11-09] MEDS: TRIAMTERENE/HCTZ 37.5/25MG TABLET. PO SCH (08:35)
[2019-11-09] MEDS: ASPIRIN ENTERIC COATED 81 MG TABLET.DR. PO SCH (08:35)
[2019-11-09] MEDS: ATENOLOL 25 MG TABLET PO SCH (09:00)
[2019-11-09 15:59] VITALS: BP_SYST 156; BP_SYST 94; BP_DIAS 60; BP_DIAS 83
[2019-11-09] MEDS: DULoxetine HCL 60 MG CAPSULE.DR PO SCH (17:18)
[2019-11-09] MEDS: traZODone 50 MG TABLET. PO SCH (19:23)
[2019-11-09] MEDS: QUEtiapine 25 MG TABLET. PO SCH (19:23)
--- NOTE | 2019-11-09 22:31 | PDOC ---
Exam Note: Tushar Note: Please also refer to the separate dictated note~for this date of service dictated separately.~Patient seen individually. Discussed the patient with Nursing staff reviewed the chart.~Reviewed interim history and current functioning. Reviewed vital signs,~Labs/ Radiology~and current medications noted below. Continue current treatment with the changes noted in the dictated addendum note Assessment: Vital Signs/I&O: Vital Signs Date Time Temp Pulse Resp B/P (MAP) Pulse Ox O2 Delivery O2 Flow Rate FiO2 11/09/19 21:13 96 Room Air 11/09/19 15:59 98.2 92 20 94/60 (71) I & O 11/08/19 11/08/19 11/09/19 15:00 23:00 07:00 Intake Total 1200 ml 720 ml Balance 1200 ml 720 ml Labs: Laboratory Tests Test 11/09/19 06:45 White Blood Count 7.9 x10^3/uL (4.0-11.0) Red Blood Count 3.74 x10^6/uL (3.50-5.40) Hemoglobin 11.9 g/dL (12.0-15.5) L Hematocrit 36.7 % (36.0-47.0) Mean Corpuscular Volume 98 fL (79-100) Mean Corpuscular Hemoglobin 32 pg (25-35) Mean Corpuscular Hemoglobin Concent 32 g/dL (31-37) Red Cell Distribution Width 12.5 % (11.5-14.5) Platelet Count 253 x10^3/uL (140-400) Neutrophils (%) (Auto) 67 % (31-73) Lymphocytes (%) (Auto) 23 % (24-48) L Monocytes (%) (Auto) 8 % (0-9) Eosinophils (%) (Auto) 2 % (0-3) Basophils (%) (Auto) 0 % (0-3) Neutrophils # (Auto) 5.3 x10^3uL (1.8-7.7) Lymphocytes # (Auto) 1.8 x10^3/uL (1.0-4.8) Monocytes # (Auto) 0.6 x10^3/uL (0.0-1.1) Eosinophils # (Auto) 0.2 x10^3/uL (0.0-0.7) Basophils # (Auto) 0.0 x10^3/uL (0.0-0.2) Sodium Level 142 mmol/L (136-145) Potassium Level 3.0 mmol/L (3.5-5.1) L Chloride Level 103 mmol/L (98-107) Carbon Dioxide Level 29 mmol/L (21-32) Anion Gap 10 (6-14) Blood Urea Nitrogen 12 mg/dL (7-20) Creatinine 0.9 mg/dL (0.6-1.0) Estimated GFR (Cockcroft-Gault) 60.4 BUN/Creatinine Ratio 13 (6-20) Glucose Level 105 mg/dL (70-99) H Calcium Level 9.2 mg/dL (8.5-10.1) Total Bilirubin 0.3 mg/dL (0.2-1.0) Aspartate Amino Transferase (AST) 13 U/L (15-37) L Alanine Aminotransferase (ALT) 15 U/L (14-59) Alkaline Phosphatase 79 U/L (46-116) Total Protein 7.3 g/dL (6.4-8.2) Albumin 3.3 g/dL (3.4-5.0) L Albumin/Globulin Ratio 0.8 (1.0-1.7) L Current Medications: I have reviewed the current psychotropics carefully including drug interactions. Risk benefit ratio favors no change other than as noted in my dictated progress note. Diagnosis: Problems: (1) Mild cognitive impairment (2) Dementia, vascular, with depression (3) Dementia, vascular, with delusions (4) Major neurocognitive disorder (5) Anxiety disorder (6) Major depressive disorder, recurrent episode (7) Impulse control disorder (8) Suicidal ideations FLAVIA MITCHELL MD Nov 09, 2019 22:31
[2019-11-10 05:50] VITALS: BP 113/72
[2019-11-10] MEDS: ASCORBIC ACID 500 MG TABLET PO SCH ×2 (06:11→17:31)
[2019-11-10] MEDS: LEVOTHYROXINE 88 MCG TABLET PO SCH (06:11)
[2019-11-10] MEDS: SUCRALFATE 1 GM TABLET. PO SCH ×4 (08:02→19:36)
[2019-11-10] MEDS: TRIAMTERENE/HCTZ 37.5/25MG TABLET. PO SCH (08:03)
[2019-11-10] MEDS: oxyCODONE/APAP 5/325 1 TAB TABLET PO PRN ×2 (08:03→14:03)
[2019-11-10] MEDS: FERROUS SULFATE 325 MG TABLET. PO SCH ×2 (08:03→17:31)
[2019-11-10] MEDS: ASPIRIN ENTERIC COATED 81 MG TABLET.DR. PO SCH (08:03)
[2019-11-10] MEDS: PANTOPRAZOLE 40 MG TABLET. PO SCH (08:03)
[2019-11-10] MEDS: DULoxetine HCL 30 MG CAPSULE.DR PO SCH (08:04)
[2019-11-10] MEDS: ATENOLOL 25 MG TABLET PO SCH (08:04)
[2019-11-10] MEDS: POTASSIUM CHLORIDE 20 MEQ TABLET.ER. PO SCH ×2 (08:05→17:32)
[2019-11-10] MEDS: DOCUSATE SODIUM 100 MG CAPSULE PO SCH ×2 (08:05→19:36)
[2019-11-10] MEDS: OXYBUTYNIN CHLORIDE 5 MG TABLET PO SCH ×2 (08:05→19:36)
--- NOTE | 2019-11-10 12:10 | PN ---
DATE: 11/07/2019 PSYCHIATRIC PROGRESS NOTE This late entry 11/07/2019 covers the elements not covered in my initial note. SUBJECTIVE: I met with the patient evening of 11/07/2019 and staffed at a treatment team meeting with the entire team. The patient's son was to attend the meeting, but he was occupied at work and social service staff will relay information to him. The patient is sleeping average 7 hours, compliant with medications and assessment, somewhat hard of hearing, still anxious with some short-term memory deficits, depressed, occasional panic attacks, but better. She has vague somatic symptoms. No CV, , pulmonary, eye system symptoms on review. MENTAL STATUS EXAMINATION: The patient is oriented to herself, situations. Speech is coherent, somewhat high pitched. Ambulation impaired with walker. Abstraction fair, computation impaired, language function intact, attention span short. Mood and affect remain somewhat anxious, labile, but no active suicidal ideation. LABORATORY DATA: Reviewed. IMPRESSION: Major depressive disorder, panic disorder, mild cognitive impairment. Rest unchanged. PLAN: Continue Cymbalta total 90 mg a day 30 in the morning and 60 in the evening, trazodone 50 mg at bedtime, Seroquel 37.5 mg at bedtime, melatonin p.r.n. We will adjust further as clinically indicated. FLAVIA MITCHELL MD DR: NEY/jey JOB#: [id number] / [id number]
[2019-11-10] MEDS: SALIVA STIMULANT AGENT 44ML SPRAY BOTTLE. PO PRN (14:06)
[2019-11-10] MEDS: SODIUM CHLORIDE 0.65% NASAL SPRAY 45ML BOTTLE. NS PRN (14:06)
[2019-11-10 16:07] VITALS: BP 102/69
[2019-11-10] MEDS: DULoxetine HCL 60 MG CAPSULE.DR PO SCH (17:31)
[2019-11-10] MEDS: SIMETHICONE 80 MG TAB.CHEW PO PRN (18:05)
[2019-11-10] MEDS: QUEtiapine 25 MG TABLET. PO SCH (19:37)
[2019-11-10] MEDS: traZODone 50 MG TABLET. PO SCH (19:37)
--- NOTE | 2019-11-10 20:50 | PDOC ---
Exam Note: Tushar Note: Please also refer to the separate dictated note~for this date of service dictated separately.~Patient seen individually. Discussed the patient with Nursing staff reviewed the chart.~Reviewed interim history and current functioning. Reviewed vital signs,~Labs/ Radiology~and current medications noted below. Continue current treatment with the changes noted in the dictated addendum note Assessment: Vital Signs/I&O: Vital Signs Date Time Temp Pulse Resp B/P (MAP) Pulse Ox O2 Delivery O2 Flow Rate FiO2 11/10/19 16:07 97.9 78 20 102/69 (80) 97 11/09/19 22:13 Room Air I & O 11/09/19 11/09/19 11/10/19 15:00 23:00 07:00 Intake Total 840 ml 360 ml Balance 840 ml 360 ml Current Medications: I have reviewed the current psychotropics carefully including drug interactions. Risk benefit ratio favors no change other than as noted in my dictated progress note. Diagnosis: Problems: (1) Mild cognitive impairment (2) Dementia, vascular, with depression (3) Dementia, vascular, with delusions (4) Major neurocognitive disorder (5) Anxiety disorder (6) Major depressive disorder, recurrent episode (7) Impulse control disorder (8) Suicidal ideations FLAVIA MITCHELL MD Nov 10, 2019 20:50
--- NOTE | 2019-11-11 00:10 | PN ---
DATE: 11/08/2019 PSYCHIATRIC PROGRESS NOTE This late entry 11/08/2019 covers elements not covered in my initial note. SUBJECTIVE: I met with the patient evening of 11/08/2019. Per DEYA Martinez, the patient slept 7-1/2 hours previous night. She remains anxious, but not agitated. No suicidal ideation. She watches the clock for her Percocet dosage per nursing report and is sarcastic. REVIEW OF SYSTEMS: Ambulation impaired with walker. No CV, , pulmonary, eye system symptoms on review. MENTAL STATUS EXAM: Oriented to herself, situations. Short term memory is impaired. Speech coherent, can be high pitched, abstraction fair, computation impaired, language function intact, attention span short. Mood and affect remain somewhat anxious, labile, depressed, but improved. LABORATORY DATA: Reviewed. IMPRESSION: Major depressive disorder in partial remission, panic disorder, mild cognitive impairment. Rest unchanged. PLAN: Continue psychotropics from initial note, Cymbalta 90 mg a day, Seroquel 37.5 mg at bedtime, trazodone 50 mg at bedtime, melatonin 3 mg at bedtime p.r.n. MAN Richie MITCHELL MD DR: NEY/jey JOB#: [id number] / [id number]
[2019-11-11] MEDS: LEVOTHYROXINE 88 MCG TABLET PO SCH (05:42)
[2019-11-11] MEDS: ASCORBIC ACID 500 MG TABLET PO SCH ×2 (05:42→16:29)
[2019-11-11 06:02] VITALS: BP 123/77
[2019-11-11] MEDS: oxyCODONE/APAP 5/325 1 TAB TABLET PO PRN ×2 (08:17→20:31)
[2019-11-11] MEDS: SUCRALFATE 1 GM TABLET. PO SCH ×4 (08:17→20:18)
[2019-11-11] MEDS: DOCUSATE SODIUM 100 MG CAPSULE PO SCH ×2 (08:18→20:18)
[2019-11-11] MEDS: ASPIRIN ENTERIC COATED 81 MG TABLET.DR. PO SCH (08:18)
[2019-11-11] MEDS: OXYBUTYNIN CHLORIDE 5 MG TABLET PO SCH ×2 (08:18→20:19)
[2019-11-11] MEDS: POTASSIUM CHLORIDE 20 MEQ TABLET.ER. PO SCH ×2 (08:18→16:28)
[2019-11-11] MEDS: PANTOPRAZOLE 40 MG TABLET. PO SCH (08:18)
[2019-11-11] MEDS: TRIAMTERENE/HCTZ 37.5/25MG TABLET. PO SCH (08:18)
[2019-11-11] MEDS: DULoxetine HCL 30 MG CAPSULE.DR PO SCH (08:18)
[2019-11-11] MEDS: FERROUS SULFATE 325 MG TABLET. PO SCH ×2 (08:18→16:29)
[2019-11-11] MEDS: ATENOLOL 25 MG TABLET PO SCH (08:18)
[2019-11-11 15:15] VITALS: BP 132/77
[2019-11-11] MEDS: DULoxetine HCL 60 MG CAPSULE.DR PO SCH (16:29)
[2019-11-11] MEDS: SODIUM CHLORIDE 0.65% NASAL SPRAY 45ML BOTTLE. NS PRN (16:30)
[2019-11-11] MEDS: SALIVA STIMULANT AGENT 44ML SPRAY BOTTLE. PO PRN (16:31)
[2019-11-11 19:59] LABS: BASO % 0 % (0-3); EOS # 0.2 x10^3/uL (0.0-0.7); EOS % 2 % (0-3); HEMATOCRIT 37.9 % (36.0-47.0); HEMOGLOBIN 12.3 g/dL (12.0-15.5); LYMPH # 1.8 x10^3/uL (1.0-4.8); LYMPH % 21 % (24-48); MEAN CORPUSCULAR HEMOGLOBIN 32 pg (25-35); MEAN CORPUSCULAR HGB CONC 33 g/dL (31-37); MEAN CORPUSCULAR VOLUME 98 fL (79-100); MONO # 0.5 x10^3/uL (0.0-1.1); MONO % 6 % (0-9); NEUT # 6.2 x10^3uL (1.8-7.7); NEUT % 71 % (31-73); PLATELET COUNT 329 x10^3/uL (140-400); RED BLOOD COUNT 3.87 x10^6/uL (3.50-5.40); RED CELL DISTRIBUTION WIDTH 12.9 % (11.5-14.5); WHITE BLOOD COUNT 8.7 x10^3/uL (4.0-11.0)
[2019-11-11 20:09] LABS: ALBUMIN 3.3 g/dL (3.4-5.0); ALBUMIN/GLOBULIN RATIO 0.8 (1.0-1.7); CALCIUM 8.8 mg/dL (8.5-10.1); GFR 53.5; POTASSIUM 3.3 mmol/L (3.5-5.1); TOTAL BILIRUBIN 0.2 mg/dL (0.2-1.0); TOTAL PROTEIN 7.5 g/dL (6.4-8.2)
[2019-11-11] MEDS: traZODone 50 MG TABLET. PO SCH (20:19)
[2019-11-11] MEDS: QUEtiapine 25 MG TABLET. PO SCH (20:20)
--- NOTE | 2019-11-11 21:35 | PDOC ---
Exam Note: Tushar Note: Please also refer to the separate dictated note~for this date of service dictated separately.~Patient seen individually. Discussed the patient with Nursing staff reviewed the chart.~Reviewed interim history and current functioning. Reviewed vital signs,~Labs/ Radiology~and current medications noted below. Continue current treatment with the changes noted in the dictated addendum note Assessment: Vital Signs/I&O: Vital Signs Date Time Temp Pulse Resp B/P (MAP) Pulse Ox O2 Delivery O2 Flow Rate FiO2 11/11/19 20:31 18 Room Air 11/11/19 15:15 98.6 75 132/77 (95) 98 I & O 11/10/19 11/10/19 11/11/19 15:00 23:00 07:00 Intake Total 840 ml Balance 840 ml Labs: Laboratory Tests Test 11/11/19 19:48 White Blood Count 8.7 x10^3/uL (4.0-11.0) Red Blood Count 3.87 x10^6/uL (3.50-5.40) Hemoglobin 12.3 g/dL (12.0-15.5) Hematocrit 37.9 % (36.0-47.0) Mean Corpuscular Volume 98 fL (79-100) Mean Corpuscular Hemoglobin 32 pg (25-35) Mean Corpuscular Hemoglobin Concent 33 g/dL (31-37) Red Cell Distribution Width 12.9 % (11.5-14.5) Platelet Count 329 x10^3/uL (140-400) Neutrophils (%) (Auto) 71 % (31-73) Lymphocytes (%) (Auto) 21 % (24-48) L Monocytes (%) (Auto) 6 % (0-9) Eosinophils (%) (Auto) 2 % (0-3) Basophils (%) (Auto) 0 % (0-3) Neutrophils # (Auto) 6.2 x10^3uL (1.8-7.7) Lymphocytes # (Auto) 1.8 x10^3/uL (1.0-4.8) Monocytes # (Auto) 0.5 x10^3/uL (0.0-1.1) Eosinophils # (Auto) 0.2 x10^3/uL (0.0-0.7) Basophils # (Auto) 0.0 x10^3/uL (0.0-0.2) Sodium Level 137 mmol/L (136-145) Potassium Level 3.3 mmol/L (3.5-5.1) L Chloride Level 101 mmol/L (98-107) Carbon Dioxide Level 26 mmol/L (21-32) Anion Gap 10 (6-14) Blood Urea Nitrogen 14 mg/dL (7-20) Creatinine 1.0 mg/dL (0.6-1.0) Estimated GFR (Cockcroft-Gault) 53.5 BUN/Creatinine Ratio 14 (6-20) Glucose Level 95 mg/dL (70-99) Calcium Level 8.8 mg/dL (8.5-10.1) Total Bilirubin 0.2 mg/dL (0.2-1.0) Aspartate Amino Transferase (AST) 12 U/L (15-37) L Alanine Aminotransferase (ALT) 13 U/L (14-59) L Alkaline Phosphatase 85 U/L (46-116) Total Protein 7.5 g/dL (6.4-8.2) Albumin 3.3 g/dL (3.4-5.0) L Albumin/Globulin Ratio 0.8 (1.0-1.7) L Current Medications: I have reviewed the current psychotropics carefully including drug interactions. Risk benefit ratio favors no change other than as noted in my dictated progress note. Diagnosis: Problems: (1) Mild cognitive impairment (2) Dementia, vascular, with depression (3) Dementia, vascular, with delusions (4) Major neurocognitive disorder (5) Anxiety disorder (6) Major depressive disorder, recurrent episode (7) Impulse control disorder FLAVIA MITCHELL MD Nov 11, 2019 21:35
--- NOTE | 2019-11-12 01:18 | PN ---
DATE: 11/09/2019 PSYCHIATRIC PROGRESS NOTE This late entry 11/09/2019 covers the elements not covered in my initial note. SUBJECTIVE: I met with the patient in the evening of 11/09/2019. The patient slept 6-1/2 hours previous night. She remains somewhat anxious, attention seeking per nursing report. She is constantly in pain, received Percocet around the clock, very picky with her medications. REVIEW OF SYSTEMS: Positive for the pain, vague somatic symptoms. No CV, , pulmonary, eye system symptoms on review. MENTAL STATUS EXAM: Oriented to herself and situation. Speech coherent, can be rapid at times. Abstraction fair, computation impaired, language function intact, attention span short. Mood and affect remain somewhat anxious. LABORATORY DATA: Reviewed. IMPRESSION: Unchanged from initial note. PLAN: No change from initial note. MAN Richie MITCHELL MD DR: NEY/jey JOB#: [id number] / [id number]
--- NOTE | 2019-11-12 01:35 | PN ---
DATE: 11/10/2019 PSYCHIATRIC PROGRESS NOTE This late entry, 11/10, covers elements not covered in my initial note. SUBJECTIVE: I met with the patient evening of 11/10. The patient slept 6 hours previous night. She continues to complain of some back pain, but no CV, , pulmonary, eye system symptoms on review. MENTAL STATUS EXAM: Oriented to herself and situation. Speech is coherent, met with her in her room. Abstraction fair, computation impaired, language function intact. Short-term memory has some deficits. She appeared somewhat dysphoric, anxious, talked at length about one of her sons having in his 40s from COPD after he went to sleep at night and apparently did not use oxygen and was tearful describing this. Otherwise speech is coherent, abstraction fair, computation impaired. No suicidal or homicidal ideation. LABORATORY DATA: Reviewed. IMPRESSION: Major depressive disorder, recurrent, in partial remission; anxiety disorder, unspecified; mild cognitive impairment. PLAN: Continue psychotropics from initial note. Discussed with DEYA Che. FLAVIA MITCHELL MD DR: NEY/jey JOB#: [id number] / [id number]
[2019-11-12 05:35] VITALS: BP 91/58
[2019-11-12] MEDS: LEVOTHYROXINE 88 MCG TABLET PO SCH (05:37)
[2019-11-12] MEDS: ASCORBIC ACID 500 MG TABLET PO SCH ×2 (06:23→17:34)
[2019-11-12 08:05] VITALS: BP 114/75
[2019-11-12] MEDS: FERROUS SULFATE 325 MG TABLET. PO SCH ×2 (08:06→17:35)
[2019-11-12] MEDS: POTASSIUM CHLORIDE 20 MEQ TABLET.ER. PO SCH ×2 (08:07→17:00)
[2019-11-12] MEDS: ASPIRIN ENTERIC COATED 81 MG TABLET.DR. PO SCH (08:07)
[2019-11-12] MEDS: PANTOPRAZOLE 40 MG TABLET. PO SCH (08:07)
[2019-11-12] MEDS: DULoxetine HCL 30 MG CAPSULE.DR PO SCH (08:07)
[2019-11-12] MEDS: DOCUSATE SODIUM 100 MG CAPSULE PO SCH ×2 (08:07→20:32)
[2019-11-12] MEDS: SUCRALFATE 1 GM TABLET. PO SCH ×4 (08:07→20:32)
[2019-11-12] MEDS: OXYBUTYNIN CHLORIDE 5 MG TABLET PO SCH ×2 (08:07→20:32)
[2019-11-12] MEDS: TRIAMTERENE/HCTZ 37.5/25MG TABLET. PO SCH (08:09)
[2019-11-12] MEDS: ATENOLOL 25 MG TABLET PO SCH (08:10)
[2019-11-12] MEDS: oxyCODONE/APAP 5/325 1 TAB TABLET PO PRN ×2 (08:50→20:40)
[2019-11-12] MEDS ORDERED: POTASSIUM CHLORIDE 20 MEQ TABLET.ER. PO ONE (10:30)
[2019-11-12 15:56] VITALS: BP 100/54
[2019-11-12] MEDS: DULoxetine HCL 60 MG CAPSULE.DR PO SCH (17:35)
[2019-11-12] MEDS: SALIVA STIMULANT AGENT 44ML SPRAY BOTTLE. PO PRN (18:38)
[2019-11-12] MEDS: SODIUM CHLORIDE 0.65% NASAL SPRAY 45ML BOTTLE. NS PRN (18:38)
[2019-11-12] MEDS: QUEtiapine 25 MG TABLET. PO SCH (20:32)
[2019-11-12] MEDS: traZODone 50 MG TABLET. PO SCH (20:32)
--- NOTE | 2019-11-12 21:49 | PDOC ---
Exam Note: Tushar Note: Please also refer to the separate dictated note~for this date of service dictated separately.~Patient seen individually. Discussed the patient with Nursing staff reviewed the chart.~Reviewed interim history and current functioning. Reviewed vital signs,~Labs/ Radiology~and current medications noted below. Continue current treatment with the changes noted in the dictated addendum note Assessment: Vital Signs/I&O: Vital Signs Date Time Temp Pulse Resp B/P (MAP) Pulse Ox O2 Delivery O2 Flow Rate FiO2 11/12/19 20:40 18 Room Air 11/12/19 15:56 98.9 65 100/54 (69) 99 I & O 11/11/19 11/11/19 11/12/19 15:00 23:00 07:00 Intake Total 360 ml 360 ml Balance 360 ml 360 ml Labs: Laboratory Tests Test 11/12/19 09:08 Potassium Level 3.2 mmol/L (3.5-5.1) L Current Medications: Meds: Current Medications Medications (Trade) Dose Ordered Sig/Mary Route PRN Reason Start Time Stop Time Status Last Admin Dose Admin Potassium Chloride (Klor-Con) 40 meq 1X ONCE PO 11/12/19 10:30 11/12/19 10:31 DC 11/12/19 12:18 I have reviewed the current psychotropics carefully including drug interactions. Risk benefit ratio favors no change other than as noted in my dictated progress note. Diagnosis: Problems: (1) Mild cognitive impairment (2) Dementia, vascular, with depression (3) Dementia, vascular, with delusions (4) Major neurocognitive disorder (5) Anxiety disorder (6) Major depressive disorder, recurrent episode (7) Impulse control disorder (8) Suicidal ideations FLAVIA MITCHELL MD Nov 12, 2019 21:49
--- NOTE | 2019-11-12 23:11 | PN ---
DATE: 11/11/2019 PSYCHIATRIC PROGRESS NOTE This late entry 11/11/2019 covers elements not covered in my initial note. SUBJECTIVE: I met with the patient evening of 11/11/2019. Per DEYA Nicholas, the patient remains a little anxious, but less labile in her mood. Potassium is low. Dr. Jeong is addressing this. She slept 7-1/4 hours previous night. REVIEW OF SYSTEMS: Complains of back pain, impaired ambulation with walker. Complains of sore tongue. I will defer this to Dr. Jeong. REVIEW OF SYSTEMS: No CV, , pulmonary, eye system symptoms on review. MENTAL STATUS EXAM: Oriented to herself and situation. Speech is coherent, abstraction fair, computation impaired, language function intact, attention span short. Mood and affect remain somewhat anxious, labile, but less so than before. LABORATORY DATA: Reviewed. IMPRESSION: Major depressive disorder with psychotic features in partial remission; anxiety disorder, unspecified; panic disorder; mild cognitive impairment. Rest unchanged. PLAN: Continue Cymbalta 30 mg a.m., 60 mg p.m.; trazodone 50 mg at bedtime; Seroquel 37.5 mg at bedtime; melatonin 3 mg at bedtime p.r.n. Rest unchanged for now. FLAVIA MITCHELL MD DR: NEY/jey JOB#: [id number] / [id number]
[2019-11-13] MEDS ORDERED: METH28OI2 TP (03:11)
[2019-11-13] MEDS ORDERED: QUET25TA5 PO (03:13)
[2019-11-13] MEDS ORDERED: MAG30ORA2 PO (03:15)
[2019-11-13] MEDS ORDERED: MAGN400O7 PO (03:16)
[2019-11-13] MEDS: LEVOTHYROXINE 88 MCG TABLET PO SCH (05:56)
[2019-11-13] MEDS: ASCORBIC ACID 500 MG TABLET PO SCH ×2 (05:56→17:37)
[2019-11-13 06:35] VITALS: BP 132/80
[2019-11-13 07:57] LABS: CALCIUM 9.2 mg/dL (8.5-10.1); CREATININE 0.9 mg/dL (0.6-1.0); GFR 60.4; POTASSIUM 3.4 mmol/L (3.5-5.1)
[2019-11-13] MEDS: DULoxetine HCL 30 MG CAPSULE.DR PO SCH (08:33)
[2019-11-13] MEDS: ASPIRIN ENTERIC COATED 81 MG TABLET.DR. PO SCH (08:33)
[2019-11-13] MEDS: DOCUSATE SODIUM 100 MG CAPSULE PO SCH ×2 (08:33→20:30)
[2019-11-13] MEDS: FERROUS SULFATE 325 MG TABLET. PO SCH ×2 (08:34→17:37)
[2019-11-13] MEDS: OXYBUTYNIN CHLORIDE 5 MG TABLET PO SCH ×2 (08:34→20:30)
[2019-11-13] MEDS: POTASSIUM CHLORIDE 20 MEQ TABLET.ER. PO SCH ×2 (08:34→17:38)
[2019-11-13] MEDS: ATENOLOL 25 MG TABLET PO SCH (08:35)
[2019-11-13] MEDS: SUCRALFATE 1 GM TABLET. PO SCH ×4 (08:35→20:30)
[2019-11-13] MEDS: TRIAMTERENE/HCTZ 37.5/25MG TABLET. PO SCH (08:35)
[2019-11-13] MEDS: PANTOPRAZOLE 40 MG TABLET. PO SCH (08:35)
[2019-11-13] MEDS: oxyCODONE/APAP 5/325 1 TAB TABLET PO PRN ×3 (08:36→20:29)
[2019-11-13] MEDS: SALIVA STIMULANT AGENT 44ML SPRAY BOTTLE. PO PRN (13:31)
[2019-11-13 15:33] VITALS: BP 114/69
[2019-11-13] MEDS: DULoxetine HCL 60 MG CAPSULE.DR PO SCH (17:37)
[2019-11-13] MEDS: SIMETHICONE 80 MG TAB.CHEW PO PRN (17:49)
[2019-11-13] MEDS: QUEtiapine 25 MG TABLET. PO SCH (20:29)
[2019-11-13] MEDS: traZODone 50 MG TABLET. PO SCH (20:30)
--- NOTE | 2019-11-13 21:47 | PDOC ---
Exam Note: Tushar Note: Please also refer to the separate dictated note~for this date of service dictated separately.~Patient seen individually. Discussed the patient with Nursing staff reviewed the chart.~Reviewed interim history and current functioning. Reviewed vital signs,~Labs/ Radiology~and current medications noted below. Continue current treatment with the changes noted in the dictated addendum note Assessment: Vital Signs/I&O: Vital Signs Date Time Temp Pulse Resp B/P (MAP) Pulse Ox O2 Delivery O2 Flow Rate FiO2 11/13/19 20:29 18 Room Air 11/13/19 16:00 98 11/13/19 15:33 98.2 60 114/69 (84) I & O 11/12/19 11/12/19 11/13/19 15:00 23:00 07:00 Intake Total 720 ml 240 ml Balance 720 ml 240 ml Labs: Laboratory Tests Test 11/13/19 07:30 Sodium Level 142 mmol/L (136-145) Potassium Level 3.4 mmol/L (3.5-5.1) L Chloride Level 105 mmol/L (98-107) Carbon Dioxide Level 29 mmol/L (21-32) Anion Gap 8 (6-14) Blood Urea Nitrogen 11 mg/dL (7-20) Creatinine 0.9 mg/dL (0.6-1.0) Estimated GFR (Cockcroft-Gault) 60.4 Glucose Level 91 mg/dL (70-99) Calcium Level 9.2 mg/dL (8.5-10.1) Current Medications: I have reviewed the current psychotropics carefully including drug interactions. Risk benefit ratio favors no change other than as noted in my dictated progress note. Diagnosis: Problems: (1) Mild cognitive impairment (2) Dementia, vascular, with depression (3) Dementia, vascular, with delusions (4) Major neurocognitive disorder (5) Anxiety disorder (6) Major depressive disorder, recurrent episode (7) Impulse control disorder (8) Suicidal ideations FLAVIA MITCHELL MD Nov 13, 2019 21:47
--- NOTE | 2019-11-14 04:22 | PN ---
DATE: 11/12/2019 PSYCHIATRIC PROGRESS NOTE This late entry 11/12/2019 covers elements not covered in my initial note. SUBJECTIVE: I met with the patient evening of 11/12/2019. Per DEYA Hidalgo, the patient slept 7-1/2 hours previous night. She was tired in the morning. She is still anxious, somewhat dysphoric, but no suicidal ideation. REVIEW OF SYSTEMS: Ambulation impaired with walker. No CV, , pulmonary, eye system symptoms on review. MENTAL STATUS EXAM: Oriented to herself and situation. Speech is coherent, abstraction fair, computation impaired, language function intact, attention span short. Mood and affect, somewhat anxious, at times labile, but improved. LABORATORY DATA: Reviewed. IMPRESSION: Unchanged from initial note. PLAN: No change from initial note. MAN Richie MITCHELL MD DR: NEY/jey JOB#: [id number] / [id number]
[2019-11-14 05:51] VITALS: BP 116/63
[2019-11-14] MEDS: ASCORBIC ACID 500 MG TABLET PO SCH (06:03)
[2019-11-14] MEDS: LEVOTHYROXINE 88 MCG TABLET PO SCH (06:03)
[2019-11-14 08:20] VITALS: BP 116/63
[2019-11-14] MEDS: OXYBUTYNIN CHLORIDE 5 MG TABLET PO SCH (08:20)
[2019-11-14] MEDS: PANTOPRAZOLE 40 MG TABLET. PO SCH (08:20)
[2019-11-14] MEDS: TRIAMTERENE/HCTZ 37.5/25MG TABLET. PO SCH (08:20)
[2019-11-14] MEDS: ASPIRIN ENTERIC COATED 81 MG TABLET.DR. PO SCH (08:20)
[2019-11-14] MEDS: ATENOLOL 25 MG TABLET PO SCH (08:20)
[2019-11-14] MEDS: DOCUSATE SODIUM 100 MG CAPSULE PO SCH (08:20)
[2019-11-14] MEDS: FERROUS SULFATE 325 MG TABLET. PO SCH (08:21)
[2019-11-14] MEDS: DULoxetine HCL 30 MG CAPSULE.DR PO SCH (08:21)
[2019-11-14] MEDS: POTASSIUM CHLORIDE 20 MEQ TABLET.ER. PO SCH (08:21)
[2019-11-14] MEDS: SUCRALFATE 1 GM TABLET. PO SCH (08:21)
--- NOTE | 2019-11-14 21:17 | PDOC ---
Exam Note: Tushar Note: Please also refer to the separate dictated note~for this date of service dictated separately.~Patient seen individually. Discussed the patient with Nursing staff reviewed the chart.~Reviewed interim history and current functioning. Reviewed vital signs,~Labs/ Radiology~and current medications noted below. Continue current treatment with the changes noted in the dictated addendum note Assessment: Vital Signs/I&O: Vital Signs Date Time Temp Pulse Resp B/P (MAP) Pulse Ox O2 Delivery O2 Flow Rate FiO2 11/14/19 08:20 70 116/63 11/14/19 05:51 97.7 16 97 11/13/19 21:29 Room Air I & O 11/13/19 11/13/19 11/14/19 15:00 23:00 07:00 Intake Total 720 ml 100 ml Balance 720 ml 100 ml Current Medications: I have reviewed the current psychotropics carefully including drug interactions. Risk benefit ratio favors no change other than as noted in my dictated progress note. Diagnosis: Problems: (1) Mild cognitive impairment (2) Dementia, vascular, with depression (3) Dementia, vascular, with delusions (4) Major neurocognitive disorder (5) Anxiety disorder (6) Persistent headaches (7) Major depressive disorder, recurrent episode (8) Impulse control disorder FLAVIA MITCHELL MD Nov 14, 2019 21:17
--- NOTE | 2019-11-15 09:30 | DS ---
DATE OF DISCHARGE: 11/14/2019 DISCHARGE SUMMARY/PSYCHIATRIC PROGRESS NOTE This late entry date of service 11/14/2019 covers elements not covered in my initial note. SUBJECTIVE: I met with the patient individually. REASON FOR ADMISSION: Please refer to the admission history for details. Briefly, the patient is a 79-year-old female referred to us from [facility] by Dr. Jeong, her primary care physician and after I evaluated her in the evening of 11/03/2019 as an emergency after she tried to slit her wrist and was otherwise threatening suicide. She had been depressed, tearful, refusing medications, threatening to cut her wrist. She used the nail clipper other than broken glass to cut her wrists. She was increasingly labile in her mood, had failed outpatient psychiatric interventions resulting in this referral. SIGNIFICANT FINDINGS AND CLINICAL COURSE: Following admission, the patient was seen daily individually by myself from a psychiatric standpoint, medical followup with Dr. Jeong. Initially, she was extremely anxious, labile, depressed, hopeless and worthless. Adjustments were made in her psychotropics and she seemed to respond to a combination of Cymbalta 30 mg in the morning and 60 mg in the evening, trazodone 50 mg at bedtime, Seroquel 37.5 mg at bedtime, and melatonin 3 mg at bedtime p.r.n. insomnia. Prior to discharge on 11/14/2019, ambulation impaired with walker. No CV, , pulmonary, eye, ENT system symptoms on review. Reliability fair. MENTAL STATUS EXAM: Oriented to herself and situation. Speech has some latency, coherent. Abstraction fair, computation impaired, language function intact. Mood and affect improved. No suicidal ideation. CONDITION AT DISCHARGE: Improved. FINAL DIAGNOSES: Major depressive disorder, recurrent, in partial remission; anxiety disorder, unspecified; mild cognitive impairment; impulse control disorder. Rest unchanged from admission. DISCHARGE MEDICATIONS: Please refer to the MRAD. DISCHARGE INSTRUCTIONS: Outpatient psychiatric and medical followup at the snf. MAN Richie MITCHELL MD DR: NEY/jey JOB#: [id number] / [id number]
--- NOTE | 2019-11-15 10:02 | PN ---
DATE: 11/13/2019 PSYCHIATRIC PROGRESS NOTE This late entry date of service 11/13/2019 covers the elements not covered in my initial note. SUBJECTIVE: I met with the patient in the evening of 11/13/2019. Per DEYA Rivera, the patient slept 7 hours previous night. She was irritable previous night, compliant with medications. Alert, oriented x 3, somewhat withdrawn at times, anxious, but much improved. REVIEW OF SYSTEMS: Ambulation impaired with walker. No CV, , pulmonary, eye, ENT system symptoms on review. MENTAL STATUS EXAM: Reasonably oriented. Speech is coherent, abstraction fair, computation impaired, language function intact, attention span short. Mood and affect remain somewhat anxious, labile, but improved. No suicidal ideation. LABORATORY DATA: Reviewed. IMPRESSION: Unchanged from initial note. PLAN: No change from initial note. Possible transition to skilled nursing on 11/14 ____. MAN Richie MITCHELL MD DR: NEY/jey JOB#: [id number] / [id number]
== END 2019-11-14 11:00 | DRG 885 ==
LOC: ER 18:56 → GEROPSY 21:43
PROVIDERS: ADMIT Psychiatry & Neurology Psychiatry; ATTEND Psychiatry & Neurology Psychiatry
DX: F33.3 Major depressive disorder, recurrent, severe with psychotic symptoms (principal); G91.1 Obstructive hydrocephalus; R45.851 Suicidal ideations; F01.50 Vascular dementia, unspecified severity, without behavioral disturbance, psychotic disturbance, mood disturbance, and anxiety; D72.829 Elevated white blood cell count, unspecified; E03.9 Hypothyroidism, unspecified; E87.6 Hypokalemia; F41.0 Panic disorder [episodic paroxysmal anxiety]; F63.9 Impulse disorder, unspecified; I10 Essential (primary) hypertension; I48.91 Unspecified atrial fibrillation; M15.9 Polyosteoarthritis, unspecified; M41.9 Scoliosis, unspecified; Z66 Do not resuscitate; Z96.649 Presence of unspecified artificial hip joint; K21.9 Gastro-esophageal reflux disease without esophagitis; Z79.899 Other long term (current) drug therapy; Z86.14 Personal history of Methicillin resistant Staphylococcus aureus infection; Z86.73 Personal history of transient ischemic attack (TIA), and cerebral infarction without residual deficits; Z87.19 Personal history of other diseases of the digestive system; Z98.2 Presence of cerebrospinal fluid drainage device; Z88.1 Allergy status to other antibiotic agents; Z88.2 Allergy status to sulfonamides; Z88.8 Allergy status to other drugs, medicaments and biological substances
CPT/HCPCS: 36415; 70450; 71045; 72125; 80048; 80053; 80061; 80076; 80307; 81001; 82306; 82550; 82607; 83036; 83540; 83550; 83690; 83735; 83880; 84132; 84436; 84443; 84480; 84484; 85025; 85379; 85610; 85651; 85730; 86592; 93005; 96360; 96361; J7120; P9612; 99285-25

== ENCOUNTER 2021-09-10 09:50 | Inpatient (IN) | payer MEDICARE, OTHER ==
[~2021-09-10] VITALS: Ht 167.6 cm; Wt 57.5 kg
[~2021-09-10 09:50] MED LIST changes: -ASCO-219 PO; +ASCO500T53 PO; -ASPI-612 PO; +ASPI-889 PO; -DULO60CA6 PO; +DULO60CA7 PO; +GUAI237L83 PO; +LORA0.5T21 PO; -LORA0.5T96 PO; +MAG30ORA2 PO; +MAGN400O7 PO; +MELA3TAB4 PO; -MELA3TAB56 PO; +METH28OI2 TP; -PANT40TA5 PO; +PANT40TA6 PO; +PHEN-443 PO; +POTA-121 PO; -POTA20TA4 PO; +QUET25TA5 PO; +SALI10002 MM; +SODI30SP NS
--- NOTE | 2021-09-10 11:06 | RAD ---
CT head without contrast. CT cervical spine without contrast. CT chest without contrast PQRS statement: CT scans at this facility use dose reduction including either automated exposure cont rol, iterative reconstructions, and /or weight based radiation dosing via mA and kV modification when appropriate to reduce radiation dose to as low as reasonably achievable. HISTORY: Fall injury, pain. COMPARISON: CT head November 03, 2019. CT chest July 09, 2019. CT head findings: Across the right occipital lobe there is a ventriculostomy which crosses the right atrium and right lateral ventricle across the septum pellucidum into the left lateral ventricle tip t erminating at the left frontal horn, stable, the ventriculostomy is in continuity with a ventriculope ritoneal catheter at the scalp extending down the neck outside the [id number]. There is mild ventr iculomegaly stable to prior imaging, with no increasing ventricular size since the prior study to sug gest shunt dysfunction. Small focus of subcortical hypoattenuation of the right superior frontal gyru s at the vertex is stable likely due to a prior ventriculostomy since removed or perhaps old traumati c, ischemic or demyelinating injury. No intracranial hemorrhage or mass. No new infarct or acute isch emic changes evident since prior examination. Orbits, mastoids and bones are unremarkable. IMPRESSION: No acute intracranial CT abnormality. Stable exam. See above. 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 Craniocervical junc tion intact. No fracture of the cervical spine. There are scattered soft disc herniations at the cerv ical spine, with particularly sizable disc herniations likely present at C3-C4, C4-C5 and C6-C7, and bony sclerosis with a bulky disc osteophyte and uncovertebral spurring at C5-C6, and multilevel facet spurs, with multilevel spinal canal and neural foraminal stenosis present. Apical pulmonary fibrosis . IMPRESSION: No acute osseous injury of the cervical spine. Cervical disc disease. See above. CT chest findings: Absence of postcontrast imaging can limit the ability to characterize traumatic va scular or solid organ injury. There are chronic lower thoracic and upper lumbar compression fractures stable to prior chest imaging. There is a chronic appearing buckled healed deformity of the inferior sternal body, while this is new from prior chest imaging, this is suspected to be chronic as the cor tical bone demonstrates no disruption or lucent fracture and there is no surrounding soft tissue deep a or hematoma. There are acute traumatic lateral left 5th through 10th acute rib fractures with very slight cortical irregularity without significant distraction of these fractures. Tortuosity and calci fied plaque of the thoracic aorta. Ascending aorta diameter 3.1 cm. The tracheal peritoneal catheter crosses the right chest wall to the abdomen. No pericardial fluid evident. No mediastinal hematoma. T here is a hiatal hernia containing most of the stomach mildly deforms the left atrium are. No adenopa thy in the chest. Pulmonary vessels and esophagus are unremarkable. Tiny subcentimeter in volume left pleural effusion along the posterior diaphragm with a fluid density of 5 units, no acute hyperdense hemothorax evident. No pneumothorax. Trachea and bronchi are unremarkable. There is mild discoid atel ectasis at the lower lobes, there is mild passive atelectasis and volume of the left lower lobe due t o the hiatal hernia. IMPRESSION: 1. Several acute traumatic left rib nondisplaced fractures involving the lateral left 5th through 10t h ribs. There is a tiny water density left pleural effusion. No hyperdense acute hemothorax. No pneum othorax. No pulmonary contusion. 2. Several chronic lower thoracic and upper lumbar compression fractures are stable to prior imaging. 3. Hiatal hernia containing most of the stomach within the lower chest. 4. Chronic appearing lower sternal body healed fracture deformity. See above. Electronically signed by: Marques Elliott MD (09/10/2021 11:03 AM) [facility]
--- NOTE | 2021-09-10 11:18 | PHYS DOC ---
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 Patient reports that she had just finished eating with her family and was getting her hair done and she fell backwards. Patient is unsure of how she fell. Patient did hit the left front of her head, she denies any loss of consciousness, neck or back pain, head pain, nausea, vomiting. She does report an abrasion and bruise to her left forehead. [facility]. Patient is a history of dementia, anxiety/depression, A. fib, anemia, fibromyalgia, RELOCATION DIRECTOR shunt, hyp othyroidism, GERD, hypertension. (ZEUS ORTIZ APRN) Review of Systems: Review of Systems: HENT: See HPI GI: See HPI Musculoskeletal: See HPI Integument: See HPI Neurologic: See HPI (ZEUS ORTIZ APRN) Allergies: Allergies: Allergies Coded Allergies Type Severity Reaction Last Updated Verified Sulfa (Sulfonamide Antibiotics) Allergy Intermediate 07/13/19 Yes ciprofloxacin Allergy Intermediate 07/13/19 Yes metronidazole Allergy Intermediate 07/13/19 Yes nalbuphine Allergy Intermediate 07/13/19 Yes ondansetron Allergy Intermediate 07/13/19 Yes tiagabine Allergy Intermediate 07/13/19 Yes (ZEUS ORTIZ APRN) Physical Exam: PE: Constitutional: Well developed, well nourished, no acute distress, non-toxic appearance. [] HENT: Normocephalic, patient has a 2 cm abrasion to her left forehead with s urrounding ecchymosis, bilateral external ears normal, oropharynx moist, no oral exudates, nose normal. [] Eyes: PERRL, EOMI, conjunctiva normal, no discharge. [] Neck: Normal range of motion, no bony spinal tenderness, no step-offs or deformities, supple, no stridor. [] Cardiovascular:Heart rate regular rhythm, no murmur [] Lungs & Thorax: Bilateral breath sounds clear to auscultation, pain with palpation to the anterior left rib, no flail chest, no wounds or ecchymosis, no crepitus [] Abdomen: Bowel sounds normal, soft, no tenderness, no masses, no pulsatile masses. [] Skin: Warm, dry, no erythema, no rash. [] Back: No bony spinal tenderness, normal range of motion Extremities: No tenderness, no cyanosis, no clubbing, ROM intact, no edema. [] Neurologic: Alert and oriented X 3, normal motor function, normal sensory function, no focal deficits noted. [] Psychologic: Affect normal, judgement normal, mood normal. [] (ZEUS ORTIZ APRN) Current Patient Data: Vital Signs: Vital Signs Date Time Temp Pulse Resp B/P (MAP) Pulse Ox O2 Delivery O2 Flow Rate FiO2 09/10/21 10:16 97.5 70 16 115/65 (82) 95 Room Air (ZEUS ORTIZ ADMINISTRATION VICE PRESIDENT) EKG: EKG: [] (ZEUS ORTIZ APRN) Radiology/Procedures: Radiology/Procedures: []PROCEDURE: CT HEAD AND CERVICAL SPINE WO CT head without contrast. CT cervical spine without contrast. CT chest without contrast PQRS statement: CT scans at this facility use dose reduction including either automated exposure control, iterative reconstructions, and /or weight based radiation dosing via mA and kV modification when appropriate to reduce radiation dose to as low as reasonably achievable. HISTORY: Fall injury, pain. COMPARISON: CT head November 03, 2019. CT chest July 09, 2019. CT head findings: Across the right occipital lobe there is a ventriculostomy which crosses the right atrium and right lateral ventricle across the septum pellucidum into the left lateral ventricle tip terminating at the left frontal horn, stable, the ventriculostomy is in continuity with a ventriculoperitoneal catheter at the scalp extending down the neck outside the [id number]. There is mild ventriculomegaly stable to prior imaging, with no increasing ventricular size since the prior study to suggest shunt dysfunction. Small focus of subcortical hypoattenuation of the right superior frontal gyrus at the vertex is stable likely due to a prior ventriculostomy since removed or perhaps old traumatic, ischemic or demyelinating injury. No intracranial hemorrhage or mass. No new infarct or acute ischemic changes evident since prior examination. Orbits, mastoids and bones are unremarkable. IMPRESSION: No acute intracranial CT abnormality. Stable exam. See above. 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 Craniocervical junction intact. No fracture of the cervical spine. There are scattered soft disc herniations at the cervical spine, with particula rly sizable disc herniations likely present at C3-C4, C4-C5 and C6-C7, and bony sclerosis with a bulky disc osteophyte and uncovertebral spurring at C5-C6, and multilevel facet spurs, with multilevel spinal canal and neural foraminal stenosis present. Apical pulmonary fibrosis. IMPRESSION: No acute osseous injury of the cervical spine. Cervical disc disease. See above. CT chest findings: Absence of postcontrast imaging can limit the ability to characterize traumatic vascular or solid organ injury. There are chronic lower thoracic and upper lumbar compression fractures stable to prior chest imaging. There is a chronic appearing buckled healed deformity of the inferior sternal body, while this is new from prior chest imaging, this is suspected to be chroni c as the cortical bone demonstrates no disruption or lucent fracture and there is no surrounding soft tissue edema or hematoma. There are acute traumatic lateral left 5th through 10th acute rib fractures with very slight cortical irregularity without significant distraction of these fractures. Tortuosity and calcified plaque of the thoracic aorta. Ascending aorta diameter 3.1 cm. The tracheal peritoneal catheter crosses the right chest wall to the abdomen. No pericardial fluid evident. No mediastinal hematoma. There is a hiatal hernia containing most of the stomach mildly deforms the left atrium are. No adenopathy in the chest. Pulmonary vessels and esophagus are unremarkable. Tiny subcentimeter in volume left pleural effusion along the posterior diaphragm with a fluid density of 5 units, no acute hyperdense hemothorax evident. No pneumothorax. Trachea and bronchi are unremarkable. There is mild discoid atelectasis at the lower lobes, there is mild passive atelectasis and volume of the left lower lobe due to the hiatal hernia. IMPRESSION: 1. Several acute traumatic left rib nondisplaced fractures involving the lateral left 5th through 10th ribs. There is a tiny water density left pleural effusion. No hyperdense acute hemothorax. No pneumothorax. No pulmonary contusion. 2. Several chronic lower thoracic and upper lumbar compression fractures are stable to prior imaging. 3. Hiatal hernia containing most of the stomach within the lower chest. 4. Chronic appearing lower sternal body healed fracture deformity. See above. Electronically signed by: Marques Elliott MD (09/10/2021 11:03 AM) [facility] (ZEUS ORTIZ APRN) Heart Score: C/O Chest Pain: N/A Risk Factors: Risk Factors: DM, Current or recent (<one month) smoker, HTN, HLP, family history of CAD, obesity. Risk Scores: Score 0 - 3: 2.5% MACE over next 6 weeks - Discharge Home Score 4 - 6: 20.3% MACE over next 6 weeks - Admit for Clinical Observation Score 7 - 10: 72.7% MACE over next 6 weeks - Early Invasive Strategies (ZEUS ORTIZ APRN) Course & Med Decision Making: Course & Med Decision Making Pertinent Labs and Imaging studies reviewed. (See chart for details) Patient presents to the emergency department for left-sided rib pain following a fall. Imaging was performed of patient's head and neck it was negative for any acute findings. CT of her chest shows left lateral fifth through 10th rib fractures and a left pleural effusion, no pneumothorax or hemothorax. Patient's pain treated in the emergency department. I discussed these findings with Dr. Soto who agreed to admit the patient for multiple rib fractures and severe pain. I discussed these findings with patient and treatment plan and she is agreeable. ER bridge orders placed. 1142 (ZEUS ORTIZ APRN) Pravin Disclaimer: Prvain Disclaimer: This electronic medical record was generated, in whole or in part, using a voice recognition dictation system. (ZEUS ORTIZ APRN) Attending Co-Sign The patient was seen and interviewed as well as examined at the bedside. The chart was reviewed. The case was discussed. Agree with the plan of care. (OLEGARIO HERNANDEZ DO) Departure Departure: Impression: Primary Impression: Rib fractures Qualified Codes: S22.42XA - Multiple fractures of ribs, left side, initial encounter for closed fracture Additional Impression: Severe pain Disposition: ADMITTED INPATIENT Admitting Physician: Allan Soto (ANGEL,ZEUS L ADMINISTRATION VICE PRESIDENT) Condition: STABLE Referrals: CONTRERAS BAZZI MD (PCP) ZEUS ORTIZ APRN Sep 10, 2021 11:18 OLEGARIO HERNANDEZ DO Sep 13, 2021 10:25
[2021-09-10] MEDS: IV NORMAL SALINE 1,000ML 1,000 ML IV SCH ×2 (11:36→21:30)
[2021-09-10 11:46] LABS: BASO % 1 % (0-3); EOS # 0.1 x10^3/uL (0.0-0.7); EOS % 2 % (0-3); HEMATOCRIT 38.5 % (36.0-47.0); HEMOGLOBIN 12.6 g/dL (12.0-15.5); LYMPH # 1.3 x10^3/uL (1.0-4.8); LYMPH % 18 % (24-48); MEAN CORPUSCULAR HEMOGLOBIN 32 pg (25-35); MEAN CORPUSCULAR HGB CONC 33 g/dL (31-37); MEAN CORPUSCULAR VOLUME 97 fL (79-100); MONO # 0.7 x10^3/uL (0.0-1.1); MONO % 10 % (0-9); NEUT # 5.2 x10^3uL (1.8-7.7); NEUT % 70 % (31-73); PLATELET COUNT 183 x10^3/uL (140-400); RED BLOOD COUNT 3.95 x10^6/uL (3.50-5.40); WHITE BLOOD COUNT 7.4 x10^3/uL (4.0-11.0)
[2021-09-10 11:59] LABS: CALCIUM 8.9 mg/dL (8.5-10.1); GFR 53.2; POTASSIUM 3.9 mmol/L (3.5-5.1)
[2021-09-10 12:08] LABS: ALBUMIN 3.3 g/dL (3.4-5.0); ALBUMIN/GLOBULIN RATIO 0.9 (1.0-1.7); TOTAL BILIRUBIN 0.6 mg/dL (0.2-1.0); TOTAL PROTEIN 6.8 g/dL (6.4-8.2)
[2021-09-10 14:19] VITALS: BP 108/63
[2021-09-10] MEDS ORDERED: guaiFENesin DM 200MG/20MG 10 ML SYRUP PO PRN (16:15)
[2021-09-10] MEDS: MORPHINE SULFATE 4 MG/ML DISP.SYRIN. IV PRN ×3 (16:49→21:15)
[2021-09-10 20:33] VITALS: BP 105/71
[2021-09-10] MEDS: DULoxetine HCL 60 MG CAPSULE.DR PO SCH (21:15)
[2021-09-10] MEDS: busPIRone 10 MG TABLET. PO SCH (21:15)
[2021-09-10] MEDS: QUEtiapine 25 MG TABLET. PO SCH (21:15)
[2021-09-10] MEDS: MELATONIN 3 MG TABLET PO PRN (21:15)
[2021-09-10 23:34] VITALS: BP 134/65
[2021-09-11 05:00] VITALS: BP 119/78
[2021-09-11] MEDS: MORPHINE SULFATE 4 MG/ML DISP.SYRIN. IV PRN ×3 (05:55→22:15)
[2021-09-11] MEDS: LEVOTHYROXINE 88 MCG TABLET PO SCH (05:55)
--- NOTE | 2021-09-11 09:01 | HP ---
DATE OF SERVICE: 09/11/2021 ADMIT DATE: 09/10/2021 ATTENDING PHYSICIAN: Dr. Soto. CHIEF COMPLAINT: Left-sided rib cage pain. HISTORY OF PRESENT ILLNESS: The patient is an 81-year-old female, resident of [facility]. She fell previous Monday. X-rays in the ED yesterday demonstrated acute fractures of the left ribs from rib #5 to rib #10, multiple in nature. There is no pneumothorax. She has a small pleural effusion. She is in severe pain. She has underlying dementia with other medical issues. She is a DNR per advanced directive. She was admitted for pain control following her rib fractures. She is prone to frequent falls. PAST MEDICAL HISTORY: Gleaned from the old chart. She has chronic paroxysmal atrial fibrillation, degenerative arthritis, old stroke, multi-infarct dementia. Clinical depression, behavioral issues, gastroesophageal reflux disease, hypertension, hypothyroidism. [facility]. PAST SURGICAL HISTORY: She has had a surgical history of hip replacement and a ventriculoperitoneal shunt, hiatal hernia repair and left shoulder surgery. ALLERGIES: SHE HAS MULTIPLE ALLERGIES INCLUDING SULFA DRUGS, CIPRO, METRONIDAZOLE AND ONDANSETRON. EXACT REACTION IS UNCLEAR. CURRENT MEDICATIONS: Reviewed from the alf. She was on scheduled Tylenol, vitamin C, aspirin, atenolol, calcium, docusate, duloxetine, ferrous sulfate, Synthroid, magnesium hydroxide, melatonin, oxybutynin, Protonix, MiraLax, potassium, Seroquel, simethicone, Carafate, trazodone and triamterene/hydrochlorothiazide. FAMILY HISTORY: Unobtainable. REVIEW OF SYSTEMS: Unobtainable. PHYSICAL EXAMINATION: GENERAL: When I saw her, this is an elderly female who was writhing in pain and at rest, VITAL SIGNS: Initial vital signs showed a blood pressure 119/78, pulse is 73 and regular. She was afebrile, oxygen saturation 94% on room air. HEENT: Head is without trauma. Pupils are reactive. Sclerae is nonicteric. Oropharynx is clear. NECK: Supple. LUNGS: Shallow respirations with splinting. CARDIOVASCULAR: Showed distant heart tones. No obvious gallops. ABDOMEN: Soft. EXTREMITIES: Without edema. NEUROLOGIC: Profoundly confused, agitated and symptomatic. SKIN: Otherwise, warm and dry. PERTINENT LABORATORY STUDIES: Hemoglobin on admission was 12.6 g/dL with a white count of 7400. Electrolytes all within normal range. Serology negative for coronavirus. ASSESSMENT: 1. An 81-year-old female with fall and acute fractures of the left sided fifth to tenth ribs. 2. Severe pain secondary to fracture. 3. Profound dementia. 4. Old cerebrovascular accident. 5. Gastroesophageal reflux disease by history. 6. Essential hypertension. 7. Hypothyroidism, on replacement. 8. Paroxysmal atrial fibrillation. PLAN: 1. Meds reviewed and continued. 2. Pain control. Initially, she had been on Percocet. I ordered morphine. She is still in pain. I will also add a Duragesic patch every 3 days to manage baseline pain. 3. She is a DNR per advanced directive. 4. Her prognosis is guarded. She is not able to be managed at [facility] at this time. We are trying to get her pain managed without over sedating her. FLOWER DR: Avril TID: [id number] CC: CONTRERAS BAZZI MD
[2021-09-11] MEDS: fentaNYL 50MCG/HR 1 PATCH PATCH TD SCH (09:07)
[2021-09-11] MEDS: DULoxetine HCL 30 MG CAPSULE.DR PO SCH (09:07)
[2021-09-11] MEDS: ATENOLOL 25 MG TABLET PO SCH (09:08)
[2021-09-11] MEDS: busPIRone 10 MG TABLET. PO SCH ×3 (09:08→22:14)
[2021-09-11] MEDS: IV NORMAL SALINE 1,000ML 1,000 ML IV SCH (09:09)
[2021-09-11 11:00] VITALS: BP 106/78
[2021-09-11 15:06] VITALS: BP 91/60
[2021-09-11 19:10] VITALS: BP 91/56
[2021-09-11 21:57] VITALS: BP 112/64
[2021-09-11] MEDS: MELATONIN 3 MG TABLET PO PRN (22:13)
[2021-09-11] MEDS: DULoxetine HCL 60 MG CAPSULE.DR PO SCH (22:13)
[2021-09-11] MEDS: QUEtiapine 25 MG TABLET. PO SCH (22:13)
[2021-09-12 05:21] VITALS: BP 107/69
[2021-09-12] MEDS: LEVOTHYROXINE 88 MCG TABLET PO SCH (05:29)
[2021-09-12] MEDS: DULoxetine HCL 30 MG CAPSULE.DR PO SCH (08:02)
[2021-09-12] MEDS: busPIRone 10 MG TABLET. PO SCH ×3 (08:02→21:38)
[2021-09-12] MEDS: ATENOLOL 25 MG TABLET PO SCH (08:03)
--- NOTE | 2021-09-12 08:36 | PN ---
DATE: 09/12/2021 ATTENDING PHYSICIAN: Dr. Soto. SUBJECTIVE: The patient is calm. She is a little bit more sedated from her narcotics. She is not screaming in pain as she was yesterday. OBJECTIVE FINDINGS: VITAL SIGNS: Blood pressure this morning is 112/64, pulse is 75 and regular. She is afebrile. Oxygen saturation 96% on room air. HEENT: Head is without trauma. Pupils are reactive. Sclerae nonicteric. Oropharynx is clear. NECK: Supple, no bruits identified. LUNGS: Shallow respirations. CARDIOVASCULAR: Showed regular heart tones. No gallops. ABDOMEN: Soft. EXTREMITIES: Without edema. NEUROLOGIC FINDINGS: Confused and obtunded from her pain meds. ASSESSMENT: 1. An 81-year-old female with fall and acute fractures of the 5 ribs on the left side of her thorax. 2. Severe pain secondary to fractures. 3. Profound dementia. 4. Old cerebrovascular accident 5. Gastroesophageal reflux disease. 6. Essential hypertension. 7. Hypothyroidism, on replacement. 8. Paroxysmal atrial fibrillation. PLAN: 1. Continue Duragesic as scheduled every 3 days. 2. P.r.n. morphine for pain. 3. Percocet has been held because of her other narcotics. 4. She is a DNR per advanced directive. 5. We will discuss disposition with child welfare caseworker tomorrow whether or not she is able to go back to [facility]. LAKIA DR: Avril TID: [id number]
[2021-09-12 10:45] VITALS: BP 90/57
[2021-09-12 15:05] VITALS: BP 88/51
[2021-09-12 20:00] VITALS: BP 113/65
[2021-09-12] MEDS: QUEtiapine 25 MG TABLET. PO SCH (21:38)
[2021-09-12] MEDS: MELATONIN 3 MG TABLET PO PRN (21:38)
[2021-09-12] MEDS: DULoxetine HCL 60 MG CAPSULE.DR PO SCH (21:38)
--- NOTE | 2021-09-13 06:02 | NUR ---
Pt restless at beginning of shift. Frequently calling out, pulling at telemetry and accidentally pulled out IV. Pt took roque HS pills after some coaxing and was able to settle down. Slept for a couple hours before requesting to use the bathroom to have a BM. Pt unable to go using bedpan. Assisted x2 with walker to toilet, passed a small hard stool. Pt had difficulty getting up from toilet. Riser placed for future use. Pt back to bed and rested through much of the night.
[2021-09-13] MEDS: LEVOTHYROXINE 88 MCG TABLET PO SCH (06:08)
[2021-09-13 06:27] VITALS: BP 133/76
[2021-09-13] MEDS: OLANZapine 2.5 MG TABLET PO PRN (10:33)
[2021-09-13] MEDS: ATENOLOL 25 MG TABLET PO SCH (10:33)
[2021-09-13] MEDS: busPIRone 10 MG TABLET. PO SCH ×3 (10:33→20:16)
[2021-09-13] MEDS: DULoxetine HCL 30 MG CAPSULE.DR PO SCH (10:33)
[2021-09-13 11:00] VITALS: BP 112/71
[2021-09-13] MEDS: MORPHINE SULFATE 4 MG/ML DISP.SYRIN. IV PRN (14:46)
[2021-09-13 16:24] VITALS: BP 95/64
[2021-09-13] MEDS: oxyCODONE/APAP 10/325 1 TAB TABLET PO PRN (17:29)
[2021-09-13 19:00] VITALS: BP 121/77
[2021-09-13] MEDS ORDERED: POLYETHYLENE GLYCOL 3350 17 GM PACKET. PO PRN (19:00)
--- NOTE | 2021-09-13 20:00 | NUR ---
PT REFUSING TELE MONITOR. CONTINUALLY PULLING OFF LEADS.
[2021-09-13] MEDS: DULoxetine HCL 60 MG CAPSULE.DR PO SCH (20:16)
[2021-09-13] MEDS: MELATONIN 3 MG TABLET PO PRN (20:16)
[2021-09-13] MEDS: QUEtiapine 25 MG TABLET. PO SCH (20:16)
[2021-09-13 23:50] VITALS: BP 103/54
[2021-09-14] MEDS: LEVOTHYROXINE 88 MCG TABLET PO SCH (05:34)
[2021-09-14 05:39] VITALS: BP 124/69
[2021-09-14 08:40] VITALS: BP 124/69
[2021-09-14] MEDS: ATENOLOL 25 MG TABLET PO SCH (08:40)
[2021-09-14] MEDS: DULoxetine HCL 30 MG CAPSULE.DR PO SCH (08:42)
[2021-09-14] MEDS: busPIRone 10 MG TABLET. PO SCH (08:42)
[2021-09-14] MEDS: OLANZapine 2.5 MG TABLET PO PRN (08:42)
[2021-09-14] MEDS: oxyCODONE/APAP 10/325 1 TAB TABLET PO PRN (08:45)
[2021-09-14] MEDS: fentaNYL 50MCG/HR 1 PATCH PATCH TD SCH (08:50)
[2021-09-14] MEDS ORDERED: POLYETHYLENE GLYCOL 3350 17 GM PACKET. PO SCH (09:00)
[2021-09-14] MEDS ORDERED: DOCUSATE SODIUM 100 MG CAPSULE PO SCH (09:00)
--- NOTE | 2021-09-14 09:10 | DS ---
DATE OF DISCHARGE: 09/14/2021 ATTENDING PHYSICIAN: Dr. Soto. FINAL DISCHARGE DIAGNOSES: 1. Intractable pain refractory to outpatient care. 2. Fall with acute fractures of the left 5th, 6th, 7th, 8th, 9th, and 10th ribs. 3. Profound dementia. 4. Old cerebrovascular accident. 5. Gastroesophageal reflux disease by history. 6. Essential hypertension. 7. Hypothyroidism, on replacement. 8. Paroxysmal atrial fibrillation. HISTORY OF PRESENT ILLNESS: The patient is an 81-year-old female, fell at the [facility], injuries indicated acute fractures of the left sided 5th through 10th ribs. She was admitted for pain control, refractory to outpatient care. PHYSICAL EXAMINATION: Please see the dictated note. PERTINENT LABORATORY AND X-RAY STUDIES: Admission hemoglobin was 12.6 g/dL, white count 7400. Electrolytes, BUN and creatinine all within normal range. IMAGING STUDIES: As noted. COURSE IN THE HOSPITAL: The patient was admitted. She was started on intravenous morphine. In addition, I added a Duragesic patch. The morphine was discontinued and substituted with p.r.n. Percocet. She did fairly well. She was in extreme pain with lot of histrionics on admission, but eventually things calm down and she was able to take some deep breaths. Her vitals were stable. On the fourth hospital day, her blood pressure was 121/77. She was afebrile, oxygen saturation 96% on room air. Therefore, she is discharged back to [facility] with the following meds: She will have her Percocet 10 mg/325 one every 6 hours p.r.n. pain. Duragesic 50 mcg patch every 72 hours. Continuation of her aspirin daily, atenolol 25 mg daily, calcium carbonate, docusate, Cymbalta 90 mg daily, ferrous sulfate, Synthroid, magnesium hydroxide, Protonix, Percocet for breakthrough pain, Seroquel, MiraLax, simethicone, and nasal spray. For now, we held her ascorbic acid, potassium supplementation, diuretic, triamterene/hydrochlorothiazide, Carafate and trazodone doses for now. She is a DNR per advanced directive. We will respect those wishes. She was discharged then from our hospital in stable condition with explicit instruction and followup care. Total discharge time of [address]: Avril TID: [id number] CC: CONTRERAS BAZZI MD
--- NOTE | 2021-09-14 10:47 | NUR ---
PATIENT WAS DISCHARGED BACK TO [facility]. DISCHARGE PACKET WAS SENT WITH FACILITY PERSONNEL. PATIENT LEFT THE UNIT IN HER PERSONAL WHEELCHAIR ESCORTED OFF THE UNIT VIA WHEELCHAIR BY THIS RN. PATIENT WAS IN STABLE CONDITION ALERT AND ORIENTED X 3. PATIENT ALSO LEFT WITH ALL HER PERSONAL BELONGINGS.
== END 2021-09-14 10:30 | DRG 184 ==
LOC: ER 09:50 → 1 SOUTH 11:18
PROVIDERS: ADMIT Hospitalist; ATTEND Hospitalist
DX: S22.42XA Multiple fractures of ribs, left side, initial encounter for closed fracture (principal); J98.11 Atelectasis; E03.9 Hypothyroidism, unspecified; F01.50 Vascular dementia, unspecified severity, without behavioral disturbance, psychotic disturbance, mood disturbance, and anxiety; I10 Essential (primary) hypertension; I48.0 Paroxysmal atrial fibrillation; I69.311 Memory deficit following cerebral infarction; J84.10 Pulmonary fibrosis, unspecified; K21.9 Gastro-esophageal reflux disease without esophagitis; K44.9 Diaphragmatic hernia without obstruction or gangrene; M46.02 Spinal enthesopathy, cervical region; M48.02 Spinal stenosis, cervical region; M50.221 Other cervical disc displacement at C4-C5 level; M50.222 Other cervical disc displacement at C5-C6 level; M79.7 Fibromyalgia; S00.83XA Contusion of other part of head, initial encounter; Z66 Do not resuscitate; Z79.82 Long term (current) use of aspirin; Z79.899 Other long term (current) drug therapy; Z86.14 Personal history of Methicillin resistant Staphylococcus aureus infection; Z96.649 Presence of unspecified artificial hip joint; Z98.2 Presence of cerebrospinal fluid drainage device; F32.A Depression, unspecified; F41.9 Anxiety disorder, unspecified; M19.90 Unspecified osteoarthritis, unspecified site; W18.39XA Other fall on same level, initial encounter; Y93.89 Activity, other specified; Y92.89 Other specified places as the place of occurrence of the external cause; Y99.8 Other external cause status; Z20.822 Contact with and (suspected) exposure to COVID-19
CPT/HCPCS: 36415; 70450; 71250; 72125; 80053; 85025; 87426; 96374; J2270; J3010; U0003; 99285-25; J7030

== ENCOUNTER 2021-11-26 05:50 | Emergency (ER) | payer MEDICARE, OTHER ==
[~2021-11-26] VITALS: Ht 157.5 cm; Wt 57.0 kg
[2021-11-26 05:58] VITALS: BP 138/84
--- NOTE | 2021-11-26 06:40 | PHYS DOC ---
Past History Past Medical History: A-Fib, Arthritis, CVA, Dementia, Depression, GERD, Hypertension, Hypothyroid, Other Additional Past Medical Histor: Fx L hip Past Surgical History: No Surgical History, Hip Replacement Additional Past Surgical Histo: L hip Alcohol Use: None Drug Use: None General Adult EDM: Chief Complaint: MECHANICAL FALL HPI: HPI: 81-year-old female presents from her care facility after a fall. The patient has been complaining that her left hip has been more sore, but she was walking to the bathroom and fell. She is not supposed to walking around. She has had a rehab facility for care. She has a recent hip replacement. Patient tells me that "everything hurts". She does say she has some discomfort with the left hip. Review of Systems: Review of Systems: Constitutional: Denies fever or chills Eyes: Denies change in visual acuity HENT: Denies nasal congestion or sore throat Respiratory: Denies cough or shortness of breath Cardiovascular: Denies chest pain or edema GI: Denies abdominal pain, nausea, vomiting, bloody stools or diarrhea : Denies dysuria Musculoskeletal: Left hip pain Integument: Denies rash Neurologic: Denies headache, focal weakness or sensory changes Endocrine: Denies polyuria or polydipsia Lymphatic: Denies swollen glands Psychiatric: Denies depression or anxiety Allergies: Allergies: Allergies Coded Allergies Type Severity Reaction Last Updated Verified Sulfa (Sulfonamide Antibiotics) Allergy Intermediate 07/13/19 Yes ciprofloxacin Allergy Intermediate 07/13/19 Yes metronidazole Allergy Intermediate 07/13/19 Yes nalbuphine Allergy Intermediate 07/13/19 Yes ondansetron Allergy Intermediate 07/13/19 Yes tiagabine Allergy Intermediate 07/13/19 Yes Physical Exam: PE: Constitutional: Well developed, well nourished, no acute distress, non-toxic appearance. [] HENT: Normocephalic, atraumatic, bilateral external ears normal, oropharynx moist, no oral exudates, nose normal. [] Eyes: PERRLA, EOMI, conjunctiva normal, no discharge. [] Neck: Normal range of motion, no tenderness, supple, no stridor. [] Cardiovascular:Heart rate regular rhythm, no murmur [] Lungs & Thorax: Bilateral breath sounds clear to auscultation [] Abdomen: Bowel sounds normal, soft, no tenderness, no masses, no pulsatile masses. [] Skin: Ecchymosis of the right shoulder appears old. [] Back: No tenderness, no CVA tenderness. [] Extremities: Tenderness to palpation of the left hip [] Neurologic: Alert and oriented X 3, normal motor function, normal sensory function, no focal deficits noted. [] Psychologic: Affect normal, judgement normal, mood normal. [] Current Patient Data: Vital Signs: Vital Signs Date Time Temp Pulse Resp B/P (MAP) Pulse Ox O2 Delivery O2 Flow Rate FiO2 11/26/21 05:58 98.3 79 18 138/84 (102) 96 Room Air EKG: EKG: [] Radiology/Procedures: Radiology/Procedures: [] Impressions: XR LEFT HIP (WITH OR WITHOUT PELVIS) 2 VIEWS DATE: 11/26/2021 6:04 AM INDICATION: Pain, fall COMPARISON: 10/25/2021. FINDINGS: Postsurgical changes of left total hip arthroplasty, with interval arthroplasty revision and proximal femur cerclage wire fixation. No hardware dislocation. No new fracture. Remote healed left inferior pubic ramus fracture. IMPRESSION: Left total hip arthroplasty revision. No hardware dislocation. No new fracture. Electronically signed by: Javier Rodríguez MD (11/26/2021 7:47 AM) [id number] DICTATED AND SIGNED BY: JAVIER RODRÍGUEZ MD DATE: 11/26/21 0740 CC: OLEGARIO HERNANDEZ DO; CONTRERAS BAZZI MD ~MTH0 0 Heart Score: C/O Chest Pain: N/A Risk Factors: Risk Factors: DM, Current or recent (<one month) smoker, HTN, HLP, family history of CAD, obesity. Risk Scores: Score 0 - 3: 2.5% MACE over next 6 weeks - Discharge Home Score 4 - 6: 20.3% MACE over next 6 weeks - Admit for Clinical Observation Score 7 - 10: 72.7% MACE over next 6 weeks - Early Invasive Strategies Course & Med Decision Making: Course & Med Decision Making Pertinent Labs and Imaging studies reviewed. (See chart for details) The patient's hip x-ray does not show fracture. There is no disruption to her replacement. She is stable to return to her rehab facility. [] Dragon Disclaimer: Dragon Disclaimer: This electronic medical record was generated, in whole or in part, using a voice recognition dictation system. Departure Departure: Impression: Primary Impression: Fall from slip, trip, or stumble Disposition: 01 HOME / SELF CARE / HOMELESS Condition: STABLE Referrals: CONTRERAS BAZZI MD (PCP) Patient Instructions: Fall Prevention and Home Safety, [id number] OLEGARIO HERNANDEZ DO Nov 26, 2021 06:40
--- NOTE | 2021-11-26 07:49 | RAD ---
XR LEFT HIP (WITH OR WITHOUT PELVIS) 2 VIEWS DATE: 11/26/2021 6:04 AM INDICATION: Pain, fall COMPARISON: 10/25/2021. FINDINGS: Postsurgical changes of left total hip arthroplasty, with interval arthroplasty revision and proximal femur cerclage wire fixation. No hardware dislocation. No new fracture. Remote healed left inferior pubic ramus fracture. IMPRESSION: Left total hip arthroplasty revision. No hardware dislocation. No new fracture. Electronically signed by: Terrance Lombardi MD (11/26/2021 7:47 AM) [id number]
== END 2021-11-26 08:00 | disposition home or self-care (01) ==
LOC: ER 05:50
DX: M25.552 Pain in left hip (principal); I48.91 Unspecified atrial fibrillation; M19.90 Unspecified osteoarthritis, unspecified site; F03.90 Unspecified dementia, unspecified severity, without behavioral disturbance, psychotic disturbance, mood disturbance, and anxiety; K21.9 Gastro-esophageal reflux disease without esophagitis; I10 Essential (primary) hypertension; E03.9 Hypothyroidism, unspecified; Z88.2 Allergy status to sulfonamides; Z88.1 Allergy status to other antibiotic agents; Z88.8 Allergy status to other drugs, medicaments and biological substances; W01.0XXA Fall on same level from slipping, tripping and stumbling without subsequent striking against object, initial encounter; Y93.01 Activity, walking, marching and hiking; Y92.89 Other specified places as the place of occurrence of the external cause; Y99.8 Other external cause status
CPT/HCPCS: 73502; 99283